=== PATIENT | female | born 1965 ===

== ENCOUNTER 2017-02-14 05:00 | Inpatient (IN) ==
[2017-02-14] MEDS ORDERED: HYDROmorphone 2 MG/1 ML VIAL IV PRN (11:20)
[2017-02-14] MEDS ORDERED: BISACODYL 5 MG TABLET PO PRN (11:20)
[2017-02-14] MEDS ORDERED: oxyCODONE/ACETAMINOPHEN 5-325 MG TABLET PO PRN (11:20)
[2017-02-14] MEDS ORDERED: VANCOMYCIN INJ 1,000 MG in SODIUM CHLORIDE 0.9% 250 ML IV ONE (11:26)
--- NOTE | 2017-02-14 11:31 | General Surg History&Physical ---
Assessment and Plan (1) Diabetic infection of left foot Status: Acute Assessment and plan: Plan is for left below-knee amputation tomorrow. Will have her evaluated and followed by the hospitalist service to control all major other conditions she does need to dialyze today and I am contacting Dr. Whitlock for that. Current Visit: Yes History of Present Illness Chief complaint: diabetic infection and gangrene left foot History of present illness: Ms. Fonseca is a 51 year old female Ms. Fonseca is a 51-year-old woman so late in 2015 with diabetic infection of her left foot she also at that time had a chronic renal insufficiency. She was subsequently hospitalized here in November with acute congestive heart failure complicated by renal failure this required placement of dialysis catheters and cardiac catheterization and dialysis her current digestive heart failure improved and she is stabilized on dialysis. However she had progressive gangrene of her left lower leg she has undergone catheterization with angioplasty and stenting of the iliacs and popliteal and tibial vessels on the left but continued to have progressive gangrene involving the plantar surface of the foot and heel this required further debridement she was treated at [facility] for approximately 3-4 weeks with control of infection but no real improvement toward limb salvage. She had refused B-K amputation on several occasions and it was recommended and offered previously. I spoke with [facility] yesterday who called stating that there was progression of infection into the calf at this time and had concerns about whether further treatment was indicated. Mrs. Fonseca has now elected to go ahead with below-knee amputation and is admitted for that today. She will require dialysis today and I will schedule a left below-knee amputation for tomorrow. I have explained this procedure to her and her in some detail they understand that she has had a previous right below-knee amputation. I know that nonhealing and infection is a possibility but I think our options for best to attempt below-knee amputation now in hopes that she may one day be able to ambulate with bilateral below-knee prostheses. Home Medications Medication Instructions Recorded Confirmed Type Atorvastatin [Lipitor] 40 mg PO BEDTIME 12/20/16 12/20/16 History Sodium Bicarb Tab 1,300 mg PO TID 12/20/16 12/20/16 History Cilostazol [Pletal] 50 mg PO BID tablet 01/06/17 Rx Enoxaparin [Lovenox] 30 mg SUBCUT Q24H syringe 01/06/17 Rx Famotidine Tab [Pepcid Tab] 20 mg PO BID tablet 01/06/17 Rx Isosorbide Mononitrate [Imdur] 15 mg PO DAILY tablet 01/06/17 Rx amLODIPine [Norvasc] 2.5 mg PO BID tablet 01/06/17 Rx hydrALAZINE TAB [Apresoline Tab] 25 mg PO TID tablet 01/06/17 Rx Aspirin EC Tab 81 mg PO DAILY tablet 01/11/17 Rx Allergies Allergy/AdvReac Type Severity Reaction Status Date / Time No Known Allergies Allergy Unverified 11/11/16 13:00 Medical,Surgical,& Family Hx - Medical History Cardio: History of: CHF, Hypertension Psychological: No history of: Anxiety Disorders, ADHD, Behavior Problems, Bipolar Disorder, Depression, Previous Suicide Attempt, Psychiatric/Substance Abuse Tx, Schizophrenia, Violent Behavior, Psychiatric Problems Neurology: History of: Cerebral Hemorrhage (SDH (Jun 2015)), Cerebrovascular Accident (June 2015), Peripheral Neuropathy (SDH (06/16/15)), TIA No history of: Brain Aneurysm, Cerebral Palsy, Dementia, Migraine, Multiple Sclerosis, Parkinson's Disease, Seizures, Vertigo, Neurologocal Cancer HEENT: History of: Eye Problem (glaucoma), Glaucoma Endocrine: History of: Diabetes Mellitus (IDDM), Dyslipidemia Rheumatology: No history of;: Fibromyalgia, Gout, Rheumatological Problems Respiratory: No history of: Asthma, Bronchitis, COPD, Intubation, Obstructive Sleep Apnea , Pulmonary Embolism, Pulmonary Hypertension, Pneumonia, Lung Cancer, Respiratory Problems Renal: History of: Renal Failure, Renal Problems No history of: Renal (Kidney) Cancer, Dialysis Genitourinary: History of: Recurring Urinary Tract Infections Gastrointestinal: History of: GERD Musculoskeletal: History of: Amputation (right BKA) No history of: Back/Neck Problems, Degenerative Disk Disease, Herniated Disk , Osteoporosis, Musculoskeletal Cancer, Musculoskeletal Problems Hematology: History of: Anemia No history of: Blood Transfusion Reaction - Surgical History Cardiac Surgeries: Patient Denies: Cardiac Catheterization Thoracic Surgeries: Patient denies;: Organ Transplant, Lobectomy Neurologic Surgeries: Surgical HX of: Cerebral Hemorrhage (SDH (Jun 2015)), Neurologic Surgery Patient denies: Brain Aneurysm HEENT Surgeries: Surgical HX of: Tonsilectomy & Adenoidectomy Abdominal Surgeries: Surgical HX of: Appendectomy (in the remote past), Cholecystectomy Patient denies: Colonoscopy, EGD Reproductive Surgeries: Patient denies;: Breast Surgery, Genitourinary Surgery, Gynecologic Surgery - Family History Family History: Reports;: Family Cancer (mother), Family Diabetes (Parents and siblings.), Family Hypertension (PARENTS) - Social History Smoking Status: Former smoker Exam - Constitutional General appearance: normal weight, no acute distress - Head Head exam: Present: normal inspection - Eye Eye exam: Present: EOMI Pupils: Present: KRISTOPHER - ENT Mouth exam: Present: other (Scarring about the upper lip.) - Neck Neck exam: Present: normal inspection, trachea midline - Respiratory Respiratory exam: Present: clear to auscultation bilaterally - Cardiovascular Cardiovascular exam: Present: RRR, other (Dialysis catheter on the right chest appears to be going in through a right internal jugular vein) - GI/Abdominal GI/Abdominal exam: Present: soft - Expanded Left Lower Lower leg exam: Present: erythema Foot/Toe exam: Present: amputation, deformity Neuro vascular tendon exam: Present: pulse deficit Gait: Present: not tested/not observed - Neurological Exam Neurological exam: Present: alert, oriented X3 Speech: Present: normal - Skin Skin exam: Present: dry Quality Measures - VTE Contraindication to Pharmacological VTE Prophylaxis: High Risk of Bleeding
[2017-02-14 12:09] LABS: Basophils % 0.1 % (0.0-0.8); Eosinophils # 0.6 10*3/uL (0.0-0.87); Eosinophils % 6.1 % (0.00-10.9); Hematocrit 26.3 VOL% (35.7-47.0); Hemoglobin 7.7 GM/DL (12.0-16.0); Immature Granulocytes % 0.4 %; Immature Granulocytes Absolute 0.04 #; Lymphocytes # 1.6 10*3/uL (1.4-4.0); Lymphocytes % 17.5 % (21.3-54.2); Mean Corpuscular HGB Conc 29.3 GM/DL (32-36); Mean Corpuscular Hemoglobin 27 PG (27-34); Mean Platelet Volume 8.7 FL (9.6-12.0); Monocytes # 0.7 10*3/uL (0.11-0.8); Monocytes % 7.8 % (1.7-12.7); Neutrophils # 6.2 10*3/uL (1.4-7.4); Neutrophils % 68.1 % (38.7-73.9); Platelet Count 241 T/CUMM (130-400); Red Blood Count 2.89 MC/CUMM (3.8-5.5); Red Cell Distribution Width 15.9 % (9.3-17.3); White Blood Count 9.1 T/CUMM (4-12)
[2017-02-14 12:42] LABS: Alanine Aminotransferase 51 U/L (13-56); Albumin 2.2 G/DL (3.4-5.0); Alkaline Phosphatase 415 U/L (45-117); Aspartate Amino Transferase 36 U/L (0-37); Bilirubin,Total < 0.39 MG/DL (0.2-1.0); Blood Urea Nitrogen 37 MG/DL (7-18); Calcium 7.9 MG/DL (8.5-10.1); Glucose 170 MG/DL (74-106); Osmolality,Calculated 300.7 MOS/KG (273-304); Potassium 3.9 MMOL/L (3.5-5.1); Sodium 145 MMOL/L (136-145); Total Protein 6.5 G/DL (6.4-8.3)
[2017-02-14] MEDS ORDERED: DEXTROSE 50% 25 GM/50 ML VIAL IV PRN ×2 (12:42→18:17)
[2017-02-14] MEDS ORDERED: GLUCAGON 1 MG VIAL IM PRN ×2 (12:42→18:17)
--- NOTE | 2017-02-14 13:48 | Hospitalist Consult Note ---
<Eddie Saldivar - Last Filed: 02/14/17 13:44> Assessment and Plan - Time spent with patient Time spent with patient: Greater than 30 minutes (1) ESRD on hemodialysis Status: Chronic Assessment and plan: Patient is followed by Dr. Walt Whitlock. She dialyzes on Monday and Saturdays. She does have a hemodialysis catheter in her right subclavian. She is scheduled to be dialyzed today. Current Visit: Yes (2) Diabetic infection of left foot Status: Acute Assessment and plan: Patient is here for left below the knee amputation scheduled for tomorrow. Current Visit: Yes (3) Cardiomyopathy Status: Chronic Assessment and plan: Patient is being followed by cardiology. She was seen last in December by Dr. Orellana. Left heart cath revealed diffuse CAD with an EF of 40-45%. Current Visit: Yes (4) Hypertension Status: Chronic Assessment and plan: Order routine vitals. Home medicines include Norvasc 2.5 mg twice daily and hydralazine 25 mg 3 times daily. We will continue current treatment plan and adjust accordingly. Current Visit: Yes History of Present Illness - Data of Consult Patient: known to practice within the last 3 years Consult date: 02/14/17 Requesting Physician: Nick Alvares - Consult Narrative Reason for consult: Medical Management History of present illness: Ms. Fonseca is a 51 year old [place] female who is admitted to the hospital to undergo a BKA to the left leg tomorrow due to gangrenous left foot per Dr. Alvares. Patient is a poor historian so most of this history comes from previous hospitalization records. She has a rather extensive past medical history including CHF, hypertension, CVA, peripheral neuropathy, glaucoma, diabetes mellitus, chronic kidney disease and is on dialysis. She has been followed by Dr. Orellana cardiology as she had a left heart cath in December 2016 which revealed diffuse coronary artery disease and LV function of approximately 40-45% . Cardiology is following at this time to evaluate cardiac risk factors for surgery. She is a dialysis patient who is followed by Dr. Whitlock and dialyzes on Monday. She will be dialyzed today. We have been asked to follow along for medical management. On exam, the patient is alert and sitting up in bed. She appears to be in no apparent distress. She has no complaints at this time, denying chest pain, abdominal pain, headache, shortness of breath. Labs on admission are as follows: WBC 9.1, hemoglobin 7.7 , hematocrit 26.3, sodium 145, potassium 3.9, chloride 104, BUN 37, creatinine 4.90, glucose 117. We will follow along with other consultants and treat as necessary. CC: Nick Alvares MD - Home Medications and Allergies Home Medications: Home Medications Medication Instructions Recorded Confirmed Type Atorvastatin [Lipitor] 40 mg PO BEDTIME 12/20/16 02/14/17 History Sodium Bicarb Tab 1,300 mg PO TID 12/20/16 02/14/17 History Cilostazol [Pletal] 50 mg PO BID tablet 01/06/17 02/14/17 Rx Enoxaparin [Lovenox] 30 mg SUBCUT Q24H syringe 01/06/17 02/14/17 Rx Famotidine Tab [Pepcid Tab] 20 mg PO BID tablet 01/06/17 02/14/17 Rx Isosorbide Mononitrate [Imdur] 15 mg PO DAILY tablet 01/06/17 02/14/17 Rx amLODIPine [Norvasc] 2.5 mg PO BID tablet 01/06/17 02/14/17 Rx hydrALAZINE TAB [Apresoline Tab] 25 mg PO TID tablet 01/06/17 02/14/17 Rx Aspirin EC Tab 81 mg PO DAILY tablet 01/11/17 02/14/17 Rx Allergies/Adverse Reactions: Allergies Allergy/AdvReac Type Severity Reaction Status Date / Time No Known Allergies Allergy Unverified 11/11/16 13:00 Medical,Surgical,& Family Hx - Medical History Cardio: History of: CHF, Hypertension Psychological: No history of: Anxiety Disorders, ADHD, Behavior Problems, Bipolar Disorder, Depression, Previous Suicide Attempt, Psychiatric/Substance Abuse Tx, Schizophrenia, Violent Behavior, Psychiatric Problems Neurology: History of: Cerebral Hemorrhage (SDH (Jun 2015)), Cerebrovascular Accident (June 2015), Peripheral Neuropathy (SDH (06/16/15)), TIA No history of: Brain Aneurysm, Cerebral Palsy, Dementia, Migraine, Multiple Sclerosis, Parkinson's Disease, Seizures, Vertigo, Neurologocal Cancer HEENT: History of: Eye Problem (glaucoma), Glaucoma Endocrine: History of: Diabetes Mellitus (IDDM), Dyslipidemia Rheumatology: No history of;: Fibromyalgia, Gout, Rheumatological Problems Respiratory: No history of: Asthma, Bronchitis, COPD, Intubation, Obstructive Sleep Apnea , Pulmonary Embolism, Pulmonary Hypertension, Pneumonia, Lung Cancer, Respiratory Problems Renal: History of: Renal Failure, Renal Problems No history of: Renal (Kidney) Cancer, Dialysis Genitourinary: History of: Recurring Urinary Tract Infections Gastrointestinal: History of: GERD Musculoskeletal: History of: Amputation (right BKA) No history of: Back/Neck Problems, Degenerative Disk Disease, Herniated Disk , Osteoporosis, Musculoskeletal Cancer, Musculoskeletal Problems Hematology: History of: Anemia No history of: Blood Transfusion Reaction - Surgical History Cardiac Surgeries: Patient Denies: Cardiac Catheterization Thoracic Surgeries: Patient denies;: Organ Transplant, Lobectomy Neurologic Surgeries: Surgical HX of: Cerebral Hemorrhage (SDH (Jun 2015)), Neurologic Surgery Patient denies: Brain Aneurysm HEENT Surgeries: Surgical HX of: Tonsilectomy & Adenoidectomy Abdominal Surgeries: Surgical HX of: Appendectomy (in the remote past), Cholecystectomy Patient denies: Colonoscopy, EGD Reproductive Surgeries: Patient denies;: Breast Surgery, Genitourinary Surgery, Gynecologic Surgery - Family History Family History: Reports;: Family Cancer (mother), Family Diabetes (Parents and siblings.), Family Hypertension (PARENTS) - Social History Smoking Status: Former smoker Frequency of Alcohol Use: None Type of Drug Use: None Marital Status: Single Functional capacity: wheelchair bound - Constitutional Constitutional: Absent: fatigue, frequent falls, lethargy, weakness - EENT Eyes: Absent: blurry vision, loss of vision Ears: Absent: decreased hearing, ear pain Nose, mouth and throat: Absent: headache(s), neck pain, throat swelling - Cardiovascular Cardiovascular: Absent: chest pain at rest, dyspnea, lightheadedness - Respiratory Respiratory: Absent: cough, dyspnea, wheezing - Gastrointestinal Gastrointestinal: Absent: abdominal pain, change in bowel habits - Genitourinary Genitourinary: Absent: abnormal vaginal bleeding - Musculoskeletal Musculoskeletal: Absent: arthralgias, back pain - Neurological Neurological: Absent: abnormal speech, confusion, syncope - Psychiatric Psychiatric: Absent: anxiety, confusion - Endocrine Endocrine: Absent: cold intolerance, heat intolerance - Hematologic/Lymphatic Hematologic/Lymphatic: Absent: easy bleeding, easy bruising Exam - Constitutional Exam: General appearance: normal weight, no acute distress - Head Head exam: Present: normocephalic, atraumatic - Eye Eye exam: Present: EOMI. Absent: conjunctival injection, nystagmus Pupils: Present: KRISTOPHER, normal accommodation - ENT ENT exam: Present: normal exam, normal external ear exam - Neck Neck exam: Present: normal inspection. Absent: lymphadenopathy, tenderness, thyromegaly - Respiratory Respiratory exam: Present: clear to auscultation bilaterally. Absent: rales, rhonchi, wheezes - Cardiovascular Cardiovascular exam: Present: regular rate and rhythm. Absent: carotid bruit, gallop, rubs - GI/Abdominal GI/Abdominal exam: Present: normal bowel sounds. Absent: ascites, distended, mass - Extremities Exam Extremities exam: Present: R BKA, L gangrenous foot - Back Exam Back exam: Absent: CVA tenderness (L), CVA tenderness (R) - Neurological Exam Neurological exam: Present: alert, oriented X3 - Psychiatric Psychiatric exam: Present: normal affect, normal mood - Skin Skin exam: Present: normal color, warm, dry Results - Labs CBC & BMP: 02/14/17 11:59 02/14/17 11:59 Lab Results: I have reviewed the past 24 hour labs Quality Measures - VTE Contraindication to Pharmacological VTE Prophylaxis: High Risk of Bleeding <Med Jones - Last Filed: 02/14/17 18:21> History of Present Illness - Consult Narrative History of present illness: Patient seen and examined along with EBENEZER Saldivar, agree with history, assessment and plan as documented. SSI for now, will add basal as needed. CC: Nick Alvares MD Exam - Constitutional Vitals: Period Temp Pulse Resp BP Sys/Palma Pulse Ox Last 24 Hr 98.0 F 96 18 151/77 94 Results - Labs CBC & BMP: 02/14/17 11:59 02/14/17 11:59
--- NOTE | 2017-02-14 14:01 | Cardiology Consult Note ---
Betzaida Simmons April, RN, am scribing for, and in the presence of, Popeye Anguiano MD 13:56. Assessment and Plan - Time spent with patient Time spent with patient: Greater than 30 minutes (due to assessment, planning, documentation, and medication review) (1) Cardiomyopathy Status: Chronic Assessment and plan: 02/14: This patient is currently compensated without heart failure symptoms currently. She has an ischemic cardiomyopathy and will be watched closely for evidence of perioperative ischemic symptoms or worsening heart failure. Current Visit: Yes (2) Diabetic infection of left foot Status: Acute Current Visit: Yes (3) ESRD on hemodialysis Status: Chronic Current Visit: Yes (4) Hypertension Status: Chronic Current Visit: Yes (5) Diabetes mellitus Status: Chronic Current Visit: Yes Qualifiers: Diabetes mellitus type: type 2 Diabetes mellitus complication status: with kidney complications Chronic kidney disease stage: on chronic dialysis (6) CAD (coronary artery disease) Status: Acute Assessment and plan: She has extensive CAD which is not amenable to percutaneous or surgical revascularization. We will cover her with perioperative nitrates and check postoperative EKGs. Current Visit: Yes History of Present Illness - Data of Consult Patient: known to practice within the last 3 years Consult date: 02/14/17 Requesting Physician: Nick Alvares - Consult Narrative Reason for consult: Surgery clearance History of present illness: Ms. Fonseca is a 51 year old female who has been followed by Dr. Orellana in the hospital setting, but she has not followed up outpatient. She is a poor historian and no family is at bedside so the majority of the information is obtained from old records. She has a history of cardiomyopathy, CHF, hypertension, CVA, peripheral neuropathy, glaucoma, NIDDM, dyslipidemia, renal failure on dialysis, GERD, and anemia. ECHO done 12/21/16 with ejection fraction of 30%, Grade II/IV diastolic dysfunction. She had arthrectomy and angioplasty of proximal posterior tibial artery occlusion by Dr. Orellana in December of this year. Heart cath done January 03, 2017 with the following impression and recommendation: Impression: 1. Mildly reduced LV systolic function with ejection fraction estimate of proximal to be 40-45% with global hypokinesis 2. Right dominant system 3. Severe coronary artery disease, with diffusely small coronary arteries, as detailed above including but not limited to: A. 60% eccentric ostial LAD stenosis with diffuse 80-90% disease in the mid to distal LAD, and in the 1 reasonably sized bifurcating diagonal branch B. Long proximal subtotal occlusions of the 2 thin obtuse marginal branches C. 30-50% proximal to mid RCA disease with subtotal ostial occlusions of all 4 thin posterolaterals branches 4. Bilateral SFA occlusions as detailed above 5. The left SFA reconstitutes at a thin popliteal branch with three-vessel occlusions, and the anterior tibial branch reconstituting mid calf, providing relatively slow runoff below the ankle Recommendation and discussion: Mrs. Fonseca'michael coronary artery disease is quite diffuse and her vessels are very small; I believe she was best treated medically. It is encouraging that her LV function appears to improve some, as it reportedly was 30% previously. Percutaneous intervention of her left lower extremity to be difficult but it may be possible to do atherectomy and angioplasty of her left mid SFA occlusion , and proximal anterior tibial occlusion. If this were successful at may provide in-line flow to her ankle and promote wound healing if needed. Her mid anterior tibial, would be a difficult target for open bypass. Other surgical history includes right BKA, amputation of some toes on her left foot, tonsillectomy, appendectomy, and cholecystectomy. Family history includes mother with cancer, parents and siblings with diabetes, and parents with hypertension. She reports she currently does not smoke, saying she quit many years ago. Patient is being admitted today in anticipation of a left below the knee amputation tomorrow by Dr. Alvares. We are being asked to see the patient to evaluate cardiac risk factors for surgery. Patient is seen sitting up in bed in no acute distress. She denies having any chest pain, shortness of breath, palpitations, dizziness, or syncope or feelings of near syncope. Her H&H today is 7.7 and 26.3. BUN and creatinine is 37 and 4.9, she dialyzes on a Monday schedule and states she has not dialyzed today. I did not assess her left lower extremity as it is bandaged. This patient has severe multivessel coronary disease which is not amenable to percutaneous or surgical revascularization according to her primary owner Dr. Hackett. She also had extensive left lower extremity attempts at revascularization 6 weeks ago which were unsuccessful now requiring below the knee amputation. She is increased risk for cardiovascular complications related to surgery. However, this is not an elective procedure as the patient will do poorly without amputation. We will follow serial EKGs and use trans-dermal nitrates perioperatively. I have discussed in detail the particulars of this case and I have examined the patient and reviewed the patient's chart both current and old. I was directly involved in the patient's evaluation and management and I completely agree with Maria Del Carmen Huston RN regarding this patient's evaluation and treatment plan. CC: Nick Alvares MD - Home Medications and Allergies Home Medications: Home Medications Medication Instructions Recorded Confirmed Type Atorvastatin [Lipitor] 40 mg PO BEDTIME 12/20/16 02/14/17 History Sodium Bicarb Tab 1,300 mg PO TID 12/20/16 02/14/17 History Cilostazol [Pletal] 50 mg PO BID tablet 01/06/17 02/14/17 Rx Enoxaparin [Lovenox] 30 mg SUBCUT Q24H syringe 01/06/17 02/14/17 Rx Famotidine Tab [Pepcid Tab] 20 mg PO BID tablet 01/06/17 02/14/17 Rx Isosorbide Mononitrate [Imdur] 15 mg PO DAILY tablet 01/06/17 02/14/17 Rx amLODIPine [Norvasc] 2.5 mg PO BID tablet 01/06/17 02/14/17 Rx hydrALAZINE TAB [Apresoline Tab] 25 mg PO TID tablet 01/06/17 02/14/17 Rx Aspirin EC Tab 81 mg PO DAILY tablet 01/11/17 02/14/17 Rx Allergies/Adverse Reactions: Allergies Allergy/AdvReac Type Severity Reaction Status Date / Time No Known Allergies Allergy Unverified 11/11/16 13:00 - Constitutional Constitutional: Present: as per HPI - EENT Eyes: Present: blurry vision, requires corrective lense Ears: Absent: decreased hearing, tinnitus Nose, mouth and throat: Absent: epistaxis, headache(s) - Cardiovascular Cardiovascular: Absent: chest pain at rest, chest pain with activity, diaphoresis, dyspnea, dyspnea on exertion, edema, radiating jaw, neck or arm pain, lightheadedness, orthopnea, palpitations - Respiratory Respiratory: Present: cough. Absent: dyspnea, hemoptysis, dyspnea on exertion, wheezing - Gastrointestinal Gastrointestinal: Absent: abdominal pain, constipation, diarrhea, hematemesis, hematochezia, melena, nausea, vomiting - Genitourinary Genitourinary: Absent: dysuria, hematuria - Musculoskeletal Musculoskeletal: Present: limited range of motion, muscle weakness. Absent: back pain - Neurological Neurological: Present: abnormal gait, abnormal speech. Absent: dizziness, frequent falls, syncope - Psychiatric Psychiatric: Absent: anxiety, depression - Endocrine Endocrine: Present: fatigue Medical,Surgical,& Family Hx - Medical History Cardio: History of: CHF, Hypertension Neurology: History of: Cerebral Hemorrhage (SDH (Jun 2015)), Cerebrovascular Accident (June 2015), Peripheral Neuropathy (SDH (06/16/15)), TIA HEENT: History of: Glaucoma Endocrine: History of: Diabetes Mellitus (IDDM), Dyslipidemia Renal: History of: Dialysis, Renal Failure (End-stage renal disease) Genitourinary: History of: Recurring Urinary Tract Infections Gastrointestinal: History of: GERD Musculoskeletal: History of: Amputation (right BKA) Hematology: History of: Anemia - Surgical History Cardiac Surgeries: Sugical HX of: Cardiac Catheterization (December 2016) Neurologic Surgeries: Surgical HX of: Cerebral Hemorrhage (SDH (Jun 2015)), Neurologic Surgery HEENT Surgeries: Surgical HX of: Tonsilectomy & Adenoidectomy Abdominal Surgeries: Surgical HX of: Appendectomy (in the remote past), Cholecystectomy - Family History Family History: Reports;: Family Cancer (mother), Family Diabetes (Parents and siblings.), Family Hypertension (PARENTS) - Social History Smoking Status: Former smoker (In the remote past) Have you smoked in the last 12 months: No Frequency of Alcohol Use: None Type of Drug Use: None Marital Status: Lives With:: Spouse Functional capacity: wheelchair bound Physical Examination General: Present: Appears Well, No Apparent Distress HEENT: Present: PERRL, Mucus Membranes Moist Neck: Present: Supple Neck, Midline Trachea, No JVD/HJR, No Bruit Cardiac: Present: Reg Rate and Rhythm, No Murmur Lungs: Present: Normal Breath Sounds, No Wheeze, Rales, Rhonchi. Absent: Oxygen Neuro: Absent: Essential Tremor Abdomen: Present: Soft, Active Bowel Sounds, Non-Tender. Absent: Distended Skin: Present: Other (Right stump and left foot are bandaged). Absent: Rash Extremities: Present: No Edema, Normal Upper Extr. Pulses, Other (Right BKA). Absent: Normal Gait, Normal Lower Extr. Pulses Result/EKG - Labs CBC & BMP: 02/14/17 11:59 02/14/17 11:59 Lab Results: I have reviewed the past 24 hour labs Labs: Laboratory Results - last 24 hr 02/14/17 02/14/17 11:59 11:59 WBC 9.1 RBC 2.89 L Hgb 7.7 L Hct 26.3 L MCV 91.0 MCH 27 MCHC 29.3 L RDW 15.9 Plt Count 241 MPV 8.7 L Neut % (Auto) 68.1 Lymph % (Auto) 17.5 L [place] % (Auto) 7.8 Eos % (Auto) 6.1 Baso % (Auto) 0.1 Neut # (Auto) 6.2 Lymph # (Auto) 1.6 [place] # (Auto) 0.7 Eos # (Auto) 0.6 Baso # (Auto) 0.0 Immature Gran % 0.4 Nucleated RBC % 0.0 Immature Gran # 0.04 Nucleated RBCs # 0.00 Sodium 145 Potassium 3.9 Chloride 104 Carbon Dioxide 28 Anion Gap 16.9 H BUN 37 H Creatinine 4.90 H GFR Calculation 0 BUN/Creatinine Ratio 7.00 Glucose 170 H Calculated Osmolality 300.7 Calcium 7.9 L Total Bilirubin < 0.39 AST 36 ALT 51 Alkaline Phosphatase 415 H Total Protein 6.5 Albumin 2.2 L Globulin 4.3 H Albumin/Globulin Ratio 0.5 L Quality Measures - VTE Contraindication to Pharmacological VTE Prophylaxis: High Risk of Bleeding Silvio Simmons Wesley, MD, personally performed the services described in this documentation, ascribed by Maria Del Carmen Huston RN in my presence, and it is both accurate and complete 401 .
--- NOTE | 2017-02-14 14:11 | EKG Report ---
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
[2017-02-14] MEDS: hydrALAZINE 25 MG TABLET PO SCH ×2 (15:00→21:58)
[2017-02-14] MEDS: SODIUM BICARBONATE 650 MG TABLET PO SCH ×2 (15:00→21:56)
--- NOTE | 2017-02-14 15:47 | Nephrology Consult Note ---
History of Present Illness Chief complaint: ESRD History of present illness: Ms. Fonseca is a 51 year old female with need for left leg amputation which is scheduled for tomorrow. She has end-stage renal disease and dialyzes Monday. She has a problem with chronic fluid overload and is chronically edematous and is now to the point of requesting that her leg be amputated as has been recommended. On exam she is in no distress she is sitting at 30 head elevation and is not short of breath. Breath sounds are decreased over both bases extremities with a right below-knee amputation and left leg as described. Abdomen soft nontender. Chest x-ray with evidence of volume overload and bilateral pleural effusions chronic. Impression end-stage renal disease #2 chronic fluid overload #3 need for left below-knee amputation. Plan dialysis today to remove fluid as tolerated #2 surgery tomorrow #3 continue dialysis to get control of her fluid overload. She continues to drink fluid in excess of our ability to remove it. Home Medications Medication Instructions Recorded Confirmed Type Atorvastatin [Lipitor] 40 mg PO BEDTIME 12/20/16 02/14/17 History Sodium Bicarb Tab 1,300 mg PO TID 12/20/16 02/14/17 History Cilostazol [Pletal] 50 mg PO BID tablet 01/06/17 02/14/17 Rx Enoxaparin [Lovenox] 30 mg SUBCUT Q24H syringe 01/06/17 02/14/17 Rx Famotidine Tab [Pepcid Tab] 20 mg PO BID tablet 01/06/17 02/14/17 Rx Isosorbide Mononitrate [Imdur] 15 mg PO DAILY tablet 01/06/17 02/14/17 Rx amLODIPine [Norvasc] 2.5 mg PO BID tablet 01/06/17 02/14/17 Rx hydrALAZINE TAB [Apresoline Tab] 25 mg PO TID tablet 01/06/17 02/14/17 Rx Aspirin EC Tab 81 mg PO DAILY tablet 01/11/17 02/14/17 Rx Allergies Allergy/AdvReac Type Severity Reaction Status Date / Time No Known Allergies Allergy Unverified 11/11/16 13:00 Medical,Surgical,& Family Hx - Medical History Cardio: History of: CHF, Hypertension Psychological: No history of: Anxiety Disorders, ADHD, Behavior Problems, Bipolar Disorder, Depression, Previous Suicide Attempt, Psychiatric/Substance Abuse Tx, Schizophrenia, Violent Behavior, Psychiatric Problems Neurology: History of: Cerebral Hemorrhage (SDH (Jun 2015)), Cerebrovascular Accident (June 2015), Peripheral Neuropathy (SDH (06/16/15)), TIA No history of: Brain Aneurysm, Cerebral Palsy, Dementia, Migraine, Multiple Sclerosis, Parkinson's Disease, Seizures, Vertigo, Neurologocal Cancer HEENT: History of: Eye Problem (glaucoma), Glaucoma Endocrine: History of: Diabetes Mellitus (IDDM), Dyslipidemia Rheumatology: No history of;: Fibromyalgia, Gout, Rheumatological Problems Respiratory: No history of: Asthma, Bronchitis, COPD, Intubation, Obstructive Sleep Apnea , Pulmonary Embolism, Pulmonary Hypertension, Pneumonia, Lung Cancer, Respiratory Problems Renal: History of: Renal Failure, Renal Problems No history of: Renal (Kidney) Cancer, Dialysis Genitourinary: History of: Recurring Urinary Tract Infections Gastrointestinal: History of: GERD Musculoskeletal: History of: Amputation (right BKA) No history of: Back/Neck Problems, Degenerative Disk Disease, Herniated Disk , Osteoporosis, Musculoskeletal Cancer, Musculoskeletal Problems Hematology: History of: Anemia No history of: Blood Transfusion Reaction - Surgical History Cardiac Surgeries: Patient Denies: Cardiac Catheterization Thoracic Surgeries: Patient denies;: Organ Transplant, Lobectomy Neurologic Surgeries: Surgical HX of: Cerebral Hemorrhage (SDH (Jun 2015)), Neurologic Surgery Patient denies: Brain Aneurysm HEENT Surgeries: Surgical HX of: Tonsilectomy & Adenoidectomy Abdominal Surgeries: Surgical HX of: Appendectomy (in the remote past), Cholecystectomy Patient denies: Colonoscopy, EGD Reproductive Surgeries: Patient denies;: Breast Surgery, Genitourinary Surgery, Gynecologic Surgery - Family History Family History: Reports;: Family Cancer (mother), Family Diabetes (Parents and siblings.), Family Hypertension (PARENTS) - Social History Smoking Status: Former smoker Frequency of Alcohol Use: None Type of Drug Use: None Review of Systems 12 point system: reviewed and no additional remarkable complaints except as stated Exam - General Appearance General appearance: frail EENT: ATNC Neck: no JVD, no thyromegaly, no carotid bruit, supple Respiratory: no kyphosis, no scoliosis Cardiology: no murmurs, no rub, no gallops, no edema, regular rate, regular rhythm, normal S1, normal S2 Gastrointestinal: normoactive bowel sounds Integumentary: no rash, warm and dry Neurologic: no focal deficit, no asterixis, alert and oriented x3, reflexes 2+ and symmetric, gait normal, strength 5/5 Musculoskeletal: no deformities, no erythema, no cyanosis, no clubbing Psychiatric: mood/affect appropriate, cooperative Results - Labs CBC & BMP: 02/14/17 11:59 02/14/17 11:59 Assessment and Plan (1) ESRD (end stage renal disease) on dialysis Status: Chronic Assessment and plan: 3x weekly dialysis Current Visit: No
--- NOTE | 2017-02-14 15:50 | Dialysis Note ---
Dialysis Note - Dialysis Note Ms. Fonseca is seen during her hemodialysis. She is tolerating it well and is in no distress. We are removing 4 kg today and she will need to continue to have fluid removed with dialysis since she is volume overloaded. Most of this volume is located peripherally
--- NOTE | 2017-02-14 16:39 | XRay Report ---
Single view the chest. Indication: Shortness of breath. Comparison: January 12, 2017. Due to the pulmonary pathology, the heart borders are not well seen. The heart is suspected to be enlarged, and significantly increased from the previous. The pulmonary vasculature is prominent. There are bilateral basilar infiltrates and pleural effusions, these findings have worsened compared to the previous study. A dual-lumen catheter is in satisfactory position. Osseous structures are stable. Impression: Significant interval worsening with interval increase in heart size, worsening venous congestion, basilar infiltrates and increasing pleural effusions. PROCEDURE INTERPRETED AT [facility] DEPARTMENT OF RADIOLOGY Final Report Signed by: Dr. Alessandra Barrera
[2017-02-14] MEDS: amLODIPine 2.5 MG TABLET PO SCH (21:56)
[2017-02-14] MEDS: ATORVASTATIN 40 MG TABLET PO SCH (21:56)
[2017-02-15] MEDS: NITROGLYCERIN 2% OINT 1 INCH/GM PACK TOP SCH ×6 (01:12→23:58)
[2017-02-15] MEDS ORDERED: VANCOMYCIN INJ 1,000 MG in SODIUM CHLORIDE 0.9% 250 ML IV ONE (02:00)
[2017-02-15 06:32] LABS: Calcium 7.9 MG/DL (8.5-10.1); Magnesium 2.3 MG/DL (1.8-2.4); Osmolality,Calculated 298.3 MOS/KG (273-304); Potassium 4.1 MMOL/L (3.5-5.1)
--- NOTE | 2017-02-15 07:01 | EKG Report ---
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
--- NOTE | 2017-02-15 08:43 | Nephrology Progress Note ---
Nephrology - PN: Subj Interval history: Ms. Fonseca is seen in follow-up for end-stage renal disease fluid overload and peripheral vascular disease. She is to undergo left below-knee amputation today. Her chest is clear and she is not dyspneic. She still has some peripheral edema and I think she will keep that as long she continues to drink excessively but we will plan to dialyze her tomorrow and she is fine to undergo surgery today. Exam (PN)-Nephrology - Vital Signs Vital signs: Period Temp Pulse Resp BP Sys/[place] Pulse Ox Last 24 Hr 98.0 F-100.2 F 88-97 17-20 99-151/44-77 90-94 - Lab 02/14/17 11:59 02/15/17 05:13 Most recent lab results Calcium 7.9 MG/DL (8.5-10.1) L 02/15/17 05:13 Magnesium 2.3 MG/DL (1.8-2.4) 02/15/17 05:13 Assessment and Plan (1) ESRD (end stage renal disease) on dialysis Status: Chronic Assessment and plan: 3x weekly dialysis Current Visit: No
[2017-02-15] MEDS ORDERED: ISOSORBIDE MONONITRATE 30 MG TABLET PO SCH (09:00)
[2017-02-15] MEDS ORDERED: PANTOPRAZOLE 40 MG TABLET PO SCH (09:00)
[2017-02-15] MEDS ORDERED: VANCOMYCIN 500 MG VIAL ONE (10:03)
[2017-02-15] MEDS: SODIUM CHLORIDE 0.9% 250 ML IV SCH (10:27)
[2017-02-15] MEDS ORDERED: ATROPINE 0.4 MG/1 ML VIAL ONE (11:12)
[2017-02-15] MEDS: INSULIN LISPRO 100 UNIT/ML SUBCUT SCH ×2 (11:15→17:11)
[2017-02-15] MEDS: amLODIPine 2.5 MG TABLET PO SCH ×3 (11:16→20:49)
[2017-02-15] MEDS: ASPIRIN EC 81 MG TABLET PO SCH (11:16)
[2017-02-15] MEDS: hydrALAZINE 25 MG TABLET PO SCH ×3 (11:16→20:49)
[2017-02-15] MEDS: FAMOTIDINE 20 MG TABLET PO SCH (11:17)
[2017-02-15] MEDS: SODIUM BICARBONATE 650 MG TABLET PO SCH ×3 (11:17→20:49)
--- NOTE | 2017-02-15 11:54 | Event Note ---
Patient suffered a bradycardic arrest just at the institution of anesthesia she did not require intubation had a brief period of cardiac external massage. She has now awakened and pressures and heart rate have returned but I am canceling her surgery for today transferring to the intensive care unit. Notably she was complaining of fairly severe back pain just as she came into the operating suite and wanted to sit up associated with that. Do not know of any previous significant back pain history I will check a chest x-ray EKG and troponins I will ask cardiology and nephrology to recheck her in the ICU.
--- NOTE | 2017-02-15 12:25 | EKG Report ---
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
[2017-02-15] MEDS ORDERED: MIDAZOLAM 2 MG/2 ML VIAL ONE (12:43)
[2017-02-15] MEDS ORDERED: fentaNYL 100 MCG/2 ML VIAL ONE (12:43)
[2017-02-15] MEDS ORDERED: ePHEDrine 50 MG/ML AMP ONE (12:44)
--- NOTE | 2017-02-15 13:10 | Cardiology Progress Note ---
Betzaida Simmons April, RN, am scribing for, and in the presence of, Popeye Anguiano MD 13:09. Assessment and Plan (1) Cardiomyopathy Status: Chronic Current Visit: Yes (2) Diabetic infection of left foot Status: Acute Current Visit: Yes (3) ESRD on hemodialysis Status: Chronic Current Visit: Yes (4) Hypertension Status: Chronic Current Visit: Yes (5) Diabetes mellitus Status: Chronic Current Visit: Yes Qualifiers: Diabetes mellitus type: type 2 Diabetes mellitus complication status: with kidney complications Chronic kidney disease stage: on chronic dialysis (6) CAD (coronary artery disease) Status: Chronic Current Visit: Yes Cardiology - PN: Subj Interval history: Ms. Fonseca is seen resting in bed with family at bedside. She is in no acute distress at this time. She is scheduled for left below the knee amputation tomorrow by Dr. Alvares. She denies chest pain, shortness of breath, palpitations , or dizziness. Patient ran a temp of 100.2 during the night but otherwise vital signs were stable throughout the night. EKG done this morning showed sinus rhythm with T-wave abnormality, heart rate 90. She has now been transferred to the CCU because of an episode of extreme bradycardia with and induction of anesthesia.. She is clinically stable currently with a normal heart rate and blood pressure. We will review her medications. She has severe diffuse coronary disease and is high risk for surgery. We will review troponin Exam (Progress Note) - Constitutional Vitals: Period Temp Pulse Resp BP Sys/Palma Pulse Ox Last 24 Hr 98.0 F-100.2 F 88-97 17-20 99-151/44-77 90-94 General appearance: no acute distress - Head Head exam: Absent: abrasion, hematoma - Eye Eye exam: Absent: periorbital swelling, laceration to eyelids - Neck Neck exam: Absent: tenderness - Respiratory Respiratory exam: Present: clear to auscultation bilaterally. Absent: accessory muscle use, chest wall tenderness - Cardiovascular Cardiovascular exam: Present: regular rate and rhythm - GI/Abdominal GI/Abdominal exam: Present: normal bowel sounds, soft. Absent: distended, tenderness - Extremities Exam Extremities exam: Present: other (Dressings to right stump and left lower extremity). Absent: edema - Neurological Exam Neurological exam: Present: alert, oriented X3 - Psychiatric Psychiatric exam: Present: flat affect - Skin Skin exam: Present: warm, dry Result/EKG - Labs CBC & BMP: 02/14/17 11:59 02/15/17 05:13 Lab Results: I have reviewed the past 24 hour labs Labs: Laboratory Results - last 24 hr 02/14/17 02/14/17 02/14/17 11:59 11:59 11:59 WBC 9.1 RBC 2.89 L Hgb 7.7 L Hct 26.3 L MCV 91.0 MCH 27 MCHC 29.3 L RDW 15.9 Plt Count 241 MPV 8.7 L Neut % (Auto) 68.1 Lymph % (Auto) 17.5 L [place] % (Auto) 7.8 Eos % (Auto) 6.1 Baso % (Auto) 0.1 Neut # (Auto) 6.2 Lymph # (Auto) 1.6 [place] # (Auto) 0.7 Eos # (Auto) 0.6 Baso # (Auto) 0.0 Immature Gran % 0.4 Nucleated RBC % 0.0 Immature Gran # 0.04 Nucleated RBCs # 0.00 Sodium 145 Potassium 3.9 Chloride 104 Carbon Dioxide 28 Anion Gap 16.9 H BUN 37 H Creatinine 4.90 H GFR Calculation 0 BUN/Creatinine Ratio 7.00 Glucose 170 H POC Glucose Calculated Osmolality 300.7 Calcium 7.9 L Magnesium Total Bilirubin < 0.39 AST 36 ALT 51 Alkaline Phosphatase 415 H Total Protein 6.5 Albumin 2.2 L Globulin 4.3 H Albumin/Globulin Ratio 0.5 L Blood Type O POSITIVE Antibody Screen Cancelled Crossmatch See Detail Blood Bank Comment Cancelled 02/14/17 02/15/17 02/15/17 16:38 05:13 07:22 WBC RBC Hgb Hct MCV MCH MCHC RDW Plt Count MPV Neut % (Auto) Lymph % (Auto) [place] % (Auto) Eos % (Auto) Baso % (Auto) Neut # (Auto) Lymph # (Auto) [place] # (Auto) Eos # (Auto) Baso # (Auto) Immature Gran % Nucleated RBC % Immature Gran # Nucleated RBCs # Sodium 148 H Potassium 4.1 Chloride 109 H Carbon Dioxide 29 Anion Gap 14.1 BUN 21 H D Creatinine 3.40 H GFR Calculation 14 BUN/Creatinine Ratio 6.00 Glucose 141 H POC Glucose 162 H Calculated Osmolality 298.3 Calcium 7.9 L Magnesium 2.3 Total Bilirubin AST ALT Alkaline Phosphatase Total Protein Albumin Globulin Albumin/Globulin Ratio Blood Type O POSITIVE Antibody Screen Negative Crossmatch Blood Bank Comment - EKG EKG results: interpreted by me EKG shows: sinus rhythm Quality Measures - VTE Contraindication to Pharmacological VTE Prophylaxis: High Risk of Bleeding Silvio Simmons Wesley, MD, personally performed the services described in this documentation, ascribed by Maria Del Carmen Huston RN in my presence, and it is both accurate and complete 310 .
--- NOTE | 2017-02-15 13:11 | Dialysis Note ---
Dialysis Note - Dialysis Note Ms. Fonseca had an aborted attempted surgery today. She had a bradycardic episode with the induction of anesthesia. She is tolerating dialysis well now were trying to remove fluid and will do this by ultrafiltration alone. Heart rate is now 90 with a blood pressure 150/100. She has edema and has pleural effusion so there is plenty of volume to be removed. She is not short of breath and says she was not short of breath even when supine this morning.
--- NOTE | 2017-02-15 13:56 | Event Note ---
Ms. Fonseca is moved to CCU is awake and doing well with dialysis and spoken with Dr. Anguiano who feels that there is more significant stenosis of the LAD than was apparent previously and feels that cardiac catheterization and possible stenting is appropriate. Explained that even if she requires Plavix I believe that I can safely do the B-K amputation with her on Plavix but we may have to delay that until next week.
[2017-02-15] MEDS ORDERED: POTASSIUM CHLORIDE RIDER 10 MEQ in PREMIX 1 EACH IV PRN (15:27)
[2017-02-15] MEDS ORDERED: DIAZEPAM 5 MG TABLET PO ONE (15:27)
[2017-02-15] MEDS ORDERED: MAGNESIUM SULF RIDER 2 GM in PREMIX 1 EACH IV PRN (15:27)
[2017-02-15] MEDS ORDERED: CLOPIDOGREL 300 MG TABLET PO ONE (15:29)
[2017-02-15] MEDS ORDERED: cloNIDine 0.1 MG TABLET PO PRN (15:49)
[2017-02-15] MEDS: oxyCODONE/ACETAMINOPHEN 5-325 MG TABLET PO PRN (16:16)
--- NOTE | 2017-02-15 17:42 | XRay Report ---
Portable chest. Indication: Respiratory failure. Comparison: Arch 2016. The cardiac borders are not well-defined. The heart is probably enlarged. The pulmonary vasculature is prominent. There are bilateral basilar infiltrates and moderately large bilateral pleural effusions. A dual-lumen catheter remains in satisfactory position. No pneumothorax. No bony abnormality is seen. Impression: Stable appearance of the chest. PROCEDURE INTERPRETED AT [facility] DEPARTMENT OF RADIOLOGY Final Report Signed by: Dr. Alessandra Barrera
--- NOTE | 2017-02-15 18:05 | Hospitalist Progress Note ---
Hospitalist: Subjective Interval history: Left BKA aborted today due to hypotension and bradycardia. Cardiology now plans for a cath tomorrow. Patient is now in the unit. HD today. FSGs are acceptable currently. Exam - Constitutional Vitals: Period Temp Pulse Resp BP Sys/Palma Pulse Ox Last 24 Hr 97.9 F-100.2 F 83-105 13-27 99-182/44-108 90-99 General appearance: over weight - Head Head exam: Present: normocephalic, atraumatic - Eye Eye exam: Present: EOMI Pupils: Present: KRISTOPHER - ENT ENT exam: Present: normal exam - Neck Neck exam: Present: normal inspection - Respiratory Respiratory exam: Present: clear to auscultation bilaterally. Absent: wheezes - Cardiovascular Cardiovascular exam: Present: regular rate and rhythm - GI/Abdominal GI/Abdominal exam: Present: normal bowel sounds, soft. Absent: tenderness - Extremities Exam Extremities exam: Present: edema - Back Exam Back exam: Present: normal inspection - Neurological Exam Neurological exam: Present: alert - Skin Skin exam: Present: warm, intact Results - Labs CBC & BMP: 02/14/17 11:59 02/15/17 05:13 Quality Measures - VTE Contraindication to Pharmacological VTE Prophylaxis: High Risk of Bleeding
[2017-02-15] MEDS: METOPROLOL TARTRATE 25 MG TABLET PO SCH (20:49)
[2017-02-15] MEDS: ATORVASTATIN 40 MG TABLET PO SCH (20:49)
[2017-02-16] MEDS: oxyCODONE/ACETAMINOPHEN 5-325 MG TABLET PO PRN (03:32)
[2017-02-16] MEDS: NITROGLYCERIN 2% OINT 1 INCH/GM PACK TOP SCH ×3 (05:42→18:09)
[2017-02-16 05:45] LABS: Calcium 8.3 MG/DL (8.5-10.1); Magnesium 2.3 MG/DL (1.8-2.4); Osmolality,Calculated 289.1 MOS/KG (273-304); Potassium 4.4 MMOL/L (3.5-5.1)
[2017-02-16] MEDS ORDERED: CLOPIDOGREL 300 MG TABLET PO ONE (06:00)
[2017-02-16] MEDS ORDERED: DIAZEPAM 5 MG TABLET PO ONE (06:00)
[2017-02-16] MEDS ORDERED: diphenhydrAMINE CAP 25 MG CAPSULE PO ONE (06:00)
[2017-02-16] MEDS: SODIUM CHLORIDE 0.9% 250 ML IV SCH ×2 (06:19→14:03)
[2017-02-16] MEDS: INSULIN LISPRO 100 UNIT/ML SUBCUT SCH ×2 (07:45→18:31)
--- NOTE | 2017-02-16 07:53 | EKG Report ---
Stationary ECG Study [facility] Test Date: 02/16/2017 7:52:58 AM Pat Name: JONATHAN QUACH Department: Room: 123 Gender: F Assistant Librarian: CLAY : 1965 Requested by: Popeye Anguiano Order Number: [id number] Reading MD: POPEYE ANGUIANO Intervals [place] Rate: 77 P: 7 [place]: 131 QRS: 51 QRSD: 86 T: 156 QT: 380 QTc: 411 Interpretive Statements SINUS RHYTHM ST DEVIATION AND MODERATE T-WAVE ABNORMALITY, CONSIDER LATERAL ISCHEMIA Electronically Signed On 02-16-17 10:44:14 CDT by POPEYE ANGUIANO [email or web address]
[2017-02-16] MEDS: amLODIPine 2.5 MG TABLET PO SCH ×3 (07:57→20:41)
[2017-02-16] MEDS: ASPIRIN EC 81 MG TABLET PO SCH ×2 (07:57→09:04)
[2017-02-16] MEDS: hydrALAZINE 25 MG TABLET PO SCH ×4 (07:57→20:41)
[2017-02-16] MEDS: METOPROLOL TARTRATE 25 MG TABLET PO SCH ×3 (07:58→20:41)
[2017-02-16] MEDS ORDERED: HEPARIN/NACL 0.9% 2 UNITS/ML 1,000 ML IV ONE (08:24)
[2017-02-16] MEDS ORDERED: LIDOCAINE 1%/EPI INJ 20 ML VIAL ONE (08:24)
--- NOTE | 2017-02-16 08:27 | Nephrology Progress Note ---
Nephrology - PN: Subj Interval history: Ms. Fonseca is seen in follow-up of her end-stage renal disease. She had ultrafiltration yesterday with removal of 4 4 kg of volume. Chest x-ray prior to that procedure showed pleural effusions. She is to have percutaneous coronary intervention today to treat her LAD stenosis. Potassium today is 4.4. Plan is for hemodialysis tomorrow Exam (PN)-Nephrology - Vital Signs Vital signs: Period Temp Pulse Resp BP Sys/Palma Pulse Ox Last 24 Hr 97.6 F-98.9 F 74-105 13-27 111-182/71-108 92-100 - Lab 02/14/17 11:59 02/16/17 04:08 Most recent lab results Calcium 8.3 MG/DL (8.5-10.1) L 02/16/17 04:08 Magnesium 2.3 MG/DL (1.8-2.4) 02/16/17 04:08 Assessment and Plan (1) ESRD (end stage renal disease) on dialysis Status: Chronic Assessment and plan: 3x weekly dialysis Current Visit: No
[2017-02-16] MEDS ORDERED: VANCOMYCIN INJ 1,000 MG in SODIUM CHLORIDE 0.9% 250 ML IV PRN (08:36)
--- NOTE | 2017-02-16 08:36 | Event Note ---
Ms. Fonseca will have coronary stenting today and dialysis later today or tomorrow. My thoughts are to try to stabilize her cardiac and renal and pulmonary status and perhaps we can proceed safely with the left B-K amputation next week. I would like her to continue to get 1 g of vancomycin after each dialysis
[2017-02-16] MEDS ORDERED: fentaNYL 100 MCG/2 ML VIAL ONE (08:44)
[2017-02-16] MEDS ORDERED: MIDAZOLAM 2 MG/2 ML VIAL ONE (08:47)
--- NOTE | 2017-02-16 08:57 | History and Physical Update ---
Sedation H&P Update - History and Physical H&P was reviewed, the patient examined and there: are no changes in the patients condition since last H&P was completed. - Sedation Plan for Sedation: moderate Patient Consent: Procedure disscussed with patient and patinet has consented., Risks and benefits were discussed with patient,including infection,, bleeding, injury to surrounding structures, seizure, temporary nerve, Patient understands and accepts potential risks/benefits and agrees to, proceed. ASA Class: IV Airway Assessment: Class III: Soft palate, base of uvula visible
[2017-02-16] MEDS: FAMOTIDINE 20 MG TABLET PO SCH (09:04)
[2017-02-16] MEDS: CLOPIDOGREL 75 MG TABLET PO SCH (09:05)
[2017-02-16] MEDS: SODIUM BICARBONATE 650 MG TABLET PO SCH ×3 (09:05→20:40)
[2017-02-16] MEDS ORDERED: HEPARIN 5,000 UNIT/1 ML VIAL ONE (09:06)
[2017-02-16] MEDS ORDERED: TIROFIBAN 5,000 MCG/100 ML PREMIX IV ONE (09:30)
--- NOTE | 2017-02-16 09:42 | Cardiac Catheterization ---
Date of Procedure:: 02/16/17 Pre-op Diagnosis: Patient with a bradycardic hypotensive arrest yesterday with induction of anesthesia for left below the knee amputation. On review of films patient had 90% ostial stenosis of the LAD which I would favor attempting at PCI. I reviewed the risks benefits and alternatives the procedure with the patient. She is agreeable to proceeding. Post-op diagnosis: same Procedure: Clinical summary: 51-year-old [place] lady with severe vasculopathy and known ostial 90% stenosis of the LAD who had a bradycardic hypotensive arrest with induction of anesthesia yesterday. She now is for PCI at the ostium of the LAD. Risks benefits and alternatives have been reviewed with the patient. Description of procedure: Procedure performed: 2.25 x 12 mm Zions drug-eluting stent to the ostial LAD across the origin of the circumflex inflated to 2.5 mm post deployment with an NC balloon Right femoral sheath angiography Minx closure right femoral arteriotomy site After obtaining informed consent the patient was brought to the Food Product Inspector of the right groin was prepped and draped in the usual sterile manner. Using intravenous sedation and local anesthesia needle was inserted in the right femoral artery without difficulty and a 6 Chinese sheath was positioned without difficulty. An EBU 3.5 catheter was advanced over guidewire under fluoroscopic control the issue to where the left main ostium was engaged. An 014 Chastity blue wire was advanced to the diagonal branch. A 2.25 x 12 mm Zions drug-eluting stent was advanced to the area of stenosis and deployed at 15 pancho. Repeat inflation was taken to 17 pancho. There was still a minimal amount of residual stenosis at the ostium of the LAD. This balloon was then removed from the wire and a 2.5 x 12 mm NC trek balloon was advanced to the stented segment and inflated to 15 pancho. There was good resolution of the residual stenosis with good apposition of the stent to the vessel wall. There was SOHAN grade III flow down the vessel end procedure.. Balloons and wires were removed and repeat angiogram confirmed good result. Patient underwent right femoral sheath angiography was demonstrated anatomy appropriate for minx closure. This was performed without difficulty. Good hemostasis was obtained. The patient was transferred to the CCU having suffered no significant immediate complications. Conclusions: Successful percutaneous intervention of the ostial LAD with a 2.25 x 12 mm Zions drug-eluting stent taken to 2.5 mm post dilated with a noncompliant balloon Minx closure right femoral arteriotomy site Discussion and recommendations: Patient presents with bradycardic arrest with induction of general anesthesia for a left below the knee amputation yesterday. On review of her cath films it was noted that she had a tight ostial LAD stenosis which I felt was approachable with percutaneous intervention. This is now been completed with a good angiographic result. We will continue her anti-thrombotic antiplatelet medications. She should be able to have her left below the knee amputation as optimally treated as possible from a cardiovascular standpoint. Findings have been reviewed with the patient and with her family. Anesthesia: moderate conscious sedation Surgeon / Physician: Popeye Anguiano Estimated blood loss: minimal Specimens: none sent Condition: stable - Medications / Follow-up
--- NOTE | 2017-02-16 10:01 | EKG Report ---
Stationary ECG Study [facility] Test Date: 02/16/2017 10:00:55 AM Pat Name: JONATHAN QUACH Department: Room: 123 Gender: F Annealer: Anh : 1965 Requested by: Popeye Anguiano Order Number: [id number] Reading MD: POPEYE ANGUIANO Intervals [place] Rate: 82 P: 60 HI: 144 QRS: 77 QRSD: 82 T: 192 QT: 372 QTc: 410 Interpretive Statements SINUS RHYTHM ST DEVIATION AND MODERATE T-WAVE ABNORMALITY, CONSIDER LATERAL ISCHEMIA ST DEVIATION AND MODERATE T-WAVE ABNORMALITY, CONSIDER INFERIOR ISCHEMIA Electronically Signed On 02-16-17 10:46:53 CDT by POPEYE ANGUIANO [email or web address]
--- NOTE | 2017-02-16 11:41 | Hospitalist Progress Note ---
Assessment and Plan (1) Diabetes mellitus Status: Chronic Current Visit: Yes Qualifiers: Diabetes mellitus type: type 2 Diabetes mellitus complication status: with kidney complications Chronic kidney disease stage: on chronic dialysis (2) Hypertension Status: Chronic Current Visit: No Qualifiers: Hypertension type: essential hypertension Qualified Code(s): I10 - Essential (primary) hypertension (3) Elevated troponin Status: Resolved Current Visit: No (4) ESRD (end stage renal disease) on dialysis Status: Chronic Current Visit: No (5) PAD (peripheral artery disease) Status: Acute Current Visit: No Hospitalist: Subjective Interval history: No acute events overnight. Patient not requiring pressors. Plan for cath today. FSGs acceptable. Exam - Constitutional Vitals: Period Temp Pulse Resp BP Sys/Palma Pulse Ox Last 24 Hr 97.6 F-98.9 F 74-105 13-27 111-182/71-108 92-100 General appearance: over weight - Head Head exam: Present: normocephalic, atraumatic - Eye Eye exam: Present: EOMI Pupils: Present: KRISTOPHER - ENT ENT exam: Present: normal exam - Neck Neck exam: Present: normal inspection - Respiratory Respiratory exam: Present: clear to auscultation bilaterally - Cardiovascular Cardiovascular exam: Present: regular rate and rhythm - GI/Abdominal GI/Abdominal exam: Present: normal bowel sounds, soft. Absent: tenderness, rebound - Extremities Exam Extremities exam: Present: normal inspection - Neurological Exam Neurological exam: Present: alert, oriented X3 - Psychiatric Psychiatric exam: Present: normal affect, normal mood - Skin Skin exam: Present: warm, intact Results - Labs CBC & BMP: 02/14/17 11:59 02/16/17 04:08 Quality Measures - VTE Contraindication to Pharmacological VTE Prophylaxis: High Risk of Bleeding Specialty Discharge - Follow Up or Referrals
--- NOTE | 2017-02-16 12:53 | Event Note ---
Ms. Fonseca has had successful percutaneous coronary angioplasty and stenting today and is currently on dialysis. Her left leg does not show sepsis but I would like to continue vancomycin after dialysis. I had like to have her managed here several more days before attempting B-K amputation again I am thinking Monday may be a better approach for her this will give time for better coronary perfusion and dialysis perhaps we can better control her fluid intake and her in less heart failure at this time we attempt her amputation.
--- NOTE | 2017-02-16 14:05 | Dialysis Note ---
Dialysis Note - Dialysis Note Patient is seen on hemodialysis, she is tolerating this well will continue her present treatment unchanged.
[2017-02-16] MEDS ORDERED: VANCOMYCIN INJ 1,000 MG in SODIUM CHLORIDE 0.9% 250 ML IV ONE (17:00)
[2017-02-16] MEDS: ATORVASTATIN 40 MG TABLET PO SCH (20:40)
[2017-02-17] MEDS: SODIUM CHLORIDE 0.9% 250 ML IV SCH ×2 (00:26→12:50)
[2017-02-17] MEDS: NITROGLYCERIN 2% OINT 1 INCH/GM PACK TOP SCH ×4 (02:52→18:49)
[2017-02-17 06:04] LABS: Troponin I Only 0.354 NG/ML (0.00-0.045)
--- NOTE | 2017-02-17 09:05 | Nephrology Progress Note ---
Nephrology - PN: Subj Interval history: Ms. Fonseca is seen in follow-up of her end-stage renal disease. She is status post percutaneous LAD stent placement and is doing well. Chest sounds clear today and edema seems less. She did dialyze yesterday. Her fluid overload seems essentially corrected now. Our plan is to do hemodialysis tomorrow thank you Exam (PN)-Nephrology - Vital Signs Vital signs: Period Temp Pulse Resp BP Sys/Palma Pulse Ox Last 24 Hr 97.5 F-98.5 F 73-84 10-25 115-164/65-96 94-100 - Lab 02/14/17 11:59 02/16/17 04:08 Most recent lab results Calcium 8.3 MG/DL (8.5-10.1) L 02/16/17 04:08 Magnesium 2.3 MG/DL (1.8-2.4) 02/16/17 04:08 Assessment and Plan (1) ESRD (end stage renal disease) on dialysis Status: Chronic Assessment and plan: 3x weekly dialysis Current Visit: No Specialty Discharge - Follow Up or Referrals
--- NOTE | 2017-02-17 09:10 | Cardiology Progress Note ---
Assessment and Plan (1) Cardiomyopathy Status: Chronic Assessment and plan: 02/14: This patient is currently compensated without heart failure symptoms currently. She has an ischemic cardiomyopathy and will be watched closely for evidence of perioperative ischemic symptoms or worsening heart failure. Current Visit: Yes (2) Diabetic infection of left foot Status: Acute Current Visit: Yes (3) ESRD on hemodialysis Status: Chronic Current Visit: Yes (4) Hypertension Status: Chronic Current Visit: Yes (5) Diabetes mellitus Status: Chronic Current Visit: Yes Qualifiers: Diabetes mellitus type: type 2 Diabetes mellitus complication status: with kidney complications Chronic kidney disease stage: on chronic dialysis (6) CAD (coronary artery disease) Status: Chronic Assessment and plan: She has extensive CAD which is not amenable to percutaneous or surgical revascularization. We will cover her with perioperative nitrates and check postoperative EKGs. 02/17: She has now undergone stenting across the ostium of the LAD into the left main. She tolerated this well without significant problems and has had no significant myocardial damage. She is overall stable without complaints and her plan will be to continue his currently. Current Visit: Yes Cardiology - PN: Subj Interval history: Patient is stable post procedure. She has a small hematoma the right groin but otherwise she is doing well. We will continue her Plavix and follow. She denies anginal chest pain. She is a difficult historian but I do not get a sense that she is having angina. Exam (Progress Note) - Constitutional Vitals: Period Temp Pulse Resp BP Sys/Palma Pulse Ox Last 24 Hr 97.5 F-98.5 F 73-84 10-25 115-164/65-96 94-100 Exam: General:no acute distress. alert and oriented, mood and affect are normal HEENT: no new lesions, sclerae are clear, mouth and pharynx benign Neck: supple, trachea midline, no JVD noted Lungs: no rales ronchi or wheeze is noted. pt comfortable without accesory muscle use to assist with breathing CV: RRR no murmur rub or gallop is noted. Abd: soft and nontender, BSNA, no masses. Ext: no cyanosis, clubbing or edema. Vascular insufficiency changes bilaterally. Neuro: grossly intact without focal neurologic deficit. Result/EKG - Labs CBC & BMP: 02/14/17 11:59 02/16/17 04:08 Labs: Laboratory Results - last 24 hr 02/16/17 02/16/17 02/16/17 10:25 12:53 17:33 POC Glucose 105 124 H Total Creatine Kinase CK-MB (CK-2) Troponin I 0.390 H D 02/16/17 02/17/17 02/17/17 17:53 00:22 04:02 POC Glucose 110 H Total Creatine Kinase 30 D CK-MB (CK-2) 2.8 Troponin I 0.407 H 0.354 H 02/17/17 05:55 POC Glucose 87 Total Creatine Kinase CK-MB (CK-2) Troponin I Quality Measures - VTE Contraindication to Pharmacological VTE Prophylaxis: High Risk of Bleeding Specialty Discharge - Follow Up or Referrals
--- NOTE | 2017-02-17 09:13 | EKG Report ---
Stationary ECG Study [facility] Test Date: 02/17/2017 7:19:57 AM Pat Name: JONATHAN QUACH Department: Room: 123 Gender: F Support Service Tech: GHADA : 1965 Requested by: Popeye Anguiano Order Number: [id number] Reading MD: POPEYE ANGUIANO Intervals [place] Rate: 81 P: 9 AL: 145 QRS: 66 QRSD: 89 T: 177 QT: 365 QTc: 403 Interpretive Statements SINUS RHYTHM ST DEVIATION AND MODERATE T-WAVE ABNORMALITY, CONSIDER LATERAL ISCHEMIA INTERPRETATION BASED ON A DEFAULT AGE OF 40 YEARS Electronically Signed On 02-18-17 11:22:27 CDT by POPEYE ANGUIANO [email or web address]
[2017-02-17] MEDS: ASPIRIN EC 81 MG TABLET PO SCH (09:25)
[2017-02-17] MEDS: SODIUM BICARBONATE 650 MG TABLET PO SCH ×3 (09:25→21:35)
[2017-02-17] MEDS: CLOPIDOGREL 75 MG TABLET PO SCH (09:25)
[2017-02-17] MEDS: amLODIPine 2.5 MG TABLET PO SCH ×2 (09:25→21:34)
[2017-02-17] MEDS: METOPROLOL TARTRATE 25 MG TABLET PO SCH ×2 (09:25→21:34)
[2017-02-17] MEDS: hydrALAZINE 25 MG TABLET PO SCH ×3 (09:25→21:34)
[2017-02-17] MEDS: FAMOTIDINE 20 MG TABLET PO SCH (09:25)
[2017-02-17] MEDS: INSULIN LISPRO 100 UNIT/ML SUBCUT SCH ×2 (09:26→18:16)
--- NOTE | 2017-02-17 09:48 | Event Note ---
Ms. Fonseca is comfortable this morning actually has less erythema in the calf generally doing well I will reschedule her left below-knee amputation for Monday I think it is Porten that she stay here over the weekend dialyze as indicated in order to make certain she is fully prepared for surgery on Monday. I believe that we can perform that surgery safely without having to stop aspirin and Plavix. She agrees with this plan
--- NOTE | 2017-02-17 14:22 | Hospitalist Progress Note ---
Assessment and Plan (1) Diabetes mellitus Status: Chronic Current Visit: Yes Qualifiers: Diabetes mellitus type: type 2 Diabetes mellitus complication status: with kidney complications Chronic kidney disease stage: on chronic dialysis (2) Hypertension Status: Chronic Current Visit: No Qualifiers: Hypertension type: essential hypertension Qualified Code(s): I10 - Essential (primary) hypertension (3) Elevated troponin Status: Resolved Current Visit: No (4) ESRD (end stage renal disease) on dialysis Status: Chronic Current Visit: No (5) PAD (peripheral artery disease) Status: Acute Current Visit: No Hospitalist: Subjective Interval history: No acute events overnight. Doing well this morning. Denies chest pain. Plan is for surgery possibly Monday. FSG and blood pressure at acceptable ranges. Exam - Constitutional Vitals: Period Temp Pulse Resp BP Sys/Palma Pulse Ox Last 24 Hr 97.5 F-98.4 F 73-86 10-20 115-158/55-91 94-100 General appearance: over weight - Head Head exam: Present: normocephalic, atraumatic - Eye Eye exam: Present: EOMI Pupils: Present: KRISTOPHER - ENT ENT exam: Present: normal exam - Neck Neck exam: Present: normal inspection. Absent: tenderness - Respiratory Respiratory exam: Present: clear to auscultation bilaterally. Absent: rhonchi, wheezes - Cardiovascular Cardiovascular exam: Present: regular rate and rhythm - GI/Abdominal GI/Abdominal exam: Present: normal bowel sounds, soft. Absent: tenderness, rebound - Extremities Exam Extremities exam: Present: normal inspection - Back Exam Back exam: Present: normal inspection - Neurological Exam Neurological exam: Present: alert, oriented X3 - Psychiatric Psychiatric exam: Present: normal affect, normal mood - Skin Skin exam: Present: warm, intact Results - Labs CBC & BMP: 02/14/17 11:59 02/16/17 04:08 Quality Measures - VTE Contraindication to Pharmacological VTE Prophylaxis: High Risk of Bleeding Specialty Discharge - Follow Up or Referrals
[2017-02-17] MEDS: ATORVASTATIN 40 MG TABLET PO SCH (21:34)
[2017-02-18] MEDS: NITROGLYCERIN 2% OINT 1 INCH/GM PACK TOP SCH ×5 (00:44→23:57)
[2017-02-18 05:25] LABS: Calcium 7.6 MG/DL (8.5-10.1); Magnesium 2.2 MG/DL (1.8-2.4); Osmolality,Calculated 280.5 MOS/KG (273-304); Potassium 4.1 MMOL/L (3.5-5.1)
[2017-02-18] MEDS: INSULIN LISPRO 100 UNIT/ML SUBCUT SCH ×2 (08:27→18:07)
[2017-02-18] MEDS: CLOPIDOGREL 75 MG TABLET PO SCH (08:36)
[2017-02-18] MEDS: amLODIPine 2.5 MG TABLET PO SCH ×3 (08:36→23:57)
[2017-02-18] MEDS: METOPROLOL TARTRATE 25 MG TABLET PO SCH ×3 (08:36→23:57)
[2017-02-18] MEDS: hydrALAZINE 25 MG TABLET PO SCH ×4 (08:36→23:57)
[2017-02-18] MEDS: SODIUM BICARBONATE 650 MG TABLET PO SCH ×3 (08:37→22:44)
[2017-02-18] MEDS: FAMOTIDINE 20 MG TABLET PO SCH (08:37)
[2017-02-18] MEDS: ASPIRIN EC 81 MG TABLET PO SCH (08:37)
[2017-02-18] MEDS: SODIUM CHLORIDE 0.9% 250 ML IV SCH ×2 (08:38→14:41)
--- NOTE | 2017-02-18 09:48 | Cardiology Progress Note ---
Assessment and Plan (1) Cardiomyopathy Status: Chronic Assessment and plan: 02/14: This patient is currently compensated without heart failure symptoms currently. She has an ischemic cardiomyopathy and will be watched closely for evidence of perioperative ischemic symptoms or worsening heart failure. Current Visit: Yes (2) Diabetic infection of left foot Status: Acute Current Visit: Yes (3) ESRD on hemodialysis Status: Chronic Current Visit: Yes (4) Hypertension Status: Chronic Current Visit: Yes (5) Diabetes mellitus Status: Chronic Current Visit: Yes Qualifiers: Diabetes mellitus type: type 2 Diabetes mellitus complication status: with kidney complications Chronic kidney disease stage: on chronic dialysis (6) CAD (coronary artery disease) Status: Chronic Assessment and plan: She has extensive CAD which is not amenable to percutaneous or surgical revascularization. We will cover her with perioperative nitrates and check postoperative EKGs. 02/17: She has now undergone stenting across the ostium of the LAD into the left main. She tolerated this well without significant problems and has had no significant myocardial damage. She is overall stable without complaints and her plan will be to continue his currently. 02/18: She is stable post PCI and we will transfer her to 3 . Current Visit: Yes Cardiology - PN: Subj Interval history: Patient remained stable without complaints or problems this morning. She has had no chest pain and she can be transferred back to 3 E. today. Exam (Progress Note) - Constitutional Vitals: Period Temp Pulse Resp BP Sys/Palma Pulse Ox Last 24 Hr 97.6 F-99.1 F 72-85 12- 105-148/55-86 95-100 Exam: General:no acute distress. alert and oriented, patient has a flattened affect. HEENT: no new lesions, sclerae are clear, mouth and pharynx benign Neck: supple, trachea midline, no JVD noted Lungs: no rales ronchi or wheeze is noted. pt comfortable without accesory muscle use to assist with breathing CV: RRR no murmur rub or gallop is noted. Abd: soft and nontender, BSNA, no masses. Ext: no cyanosis, clubbing or edema. Vascular insufficiency changes bilaterally. Right below the knee amputation Neuro: grossly intact without focal neurologic deficit. Result/EKG - Labs CBC & BMP: 02/14/17 11:59 02/18/17 04:44 Labs: Laboratory Results - last 24 hr 02/14/17 02/17/17 02/17/17 11:59 11:27 18:03 Sodium Potassium Chloride Carbon Dioxide Anion Gap BUN Creatinine GFR Calculation BUN/Creatinine Ratio Glucose POC Glucose 152 H 125 H Calculated Osmolality Calcium Magnesium Blood Type O POSITIVE Crossmatch See Detail 02/18/17 02/18/17 02/18/17 00:04 04:44 06:24 Sodium 139 Potassium 4.1 Chloride 104 Carbon Dioxide 26 Anion Gap 13.1 BUN 24 H Creatinine 4.60 H GFR Calculation 10 BUN/Creatinine Ratio 5.00 L Glucose 105 POC Glucose 148 H 106 Calculated Osmolality 280.5 Calcium 7.6 L Magnesium 2.2 Blood Type Crossmatch Quality Measures - VTE Contraindication to Pharmacological VTE Prophylaxis: High Risk of Bleeding Specialty Discharge - Follow Up or Referrals
--- NOTE | 2017-02-18 12:32 | Nephrology Progress Note ---
Nephrology - PN: Subj Interval history: Pt in good spirits. Denies SOB/pain. CHD planned for today. S/P PCI c stenting s apparent complications. Exam (PN)-Nephrology - Vital Signs Vital signs: Period Temp Pulse Resp BP Sys/Palma Pulse Ox Last 24 Hr 97.6 F-99.1 F 72-85 12-31 105-148/56-86 95-100 - General Appearance General appearance: cachectic, chronically ill EENT: ATNC, PERRL Neck: no JVD, no thyromegaly Respiratory: no kyphosis, clear Cardiology: no murmurs, no rub Gastrointestinal: normoactive bowel sounds, no tenderness Integumentary: no rash, warm and dry Neurologic: no focal deficit, no asterixis, alert and oriented x3 Musculoskeletal: deformities, no erythema Psychiatric: mood/affect appropriate, cooperative - Lab 02/14/17 11:59 02/18/17 04:44 Most recent lab results Calcium 7.6 MG/DL (8.5-10.1) L 02/18/17 04:44 Magnesium 2.2 MG/DL (1.8-2.4) 02/18/17 04:44 Assessment and Plan (1) ESRD (end stage renal disease) on dialysis Problem details: Routine CHD today. UF to EDW as tolerated by hemodynamics. Status: Chronic Current Visit: No (2) CAD (coronary artery disease) Status: Chronic Current Visit: Yes Specialty Discharge - Follow Up or Referrals
--- NOTE | 2017-02-18 14:15 | Dialysis Note ---
Dialysis Note - Dialysis Note S: Pt seen on dialysis. No c/o. O: VSS A: ESRD on CHD, tolerating well s complications. P: Continue routine CHD as prescribed.
[2017-02-18] MEDS ORDERED: VANCOMYCIN INJ 1,000 MG in SODIUM CHLORIDE 0.9% 250 ML IV ONE (18:00)
[2017-02-18] MEDS: ATORVASTATIN 40 MG TABLET PO SCH (21:59)
[2017-02-19 04:08] LABS: Basophils % 0.2 % (0.0-0.8); Eosinophils # 0.4 10*3/uL (0.0-0.87); Eosinophils % 4.3 % (0.00-10.9); Hemoglobin 8.1 GM/DL (12.0-16.0); Immature Granulocytes % 0.3 %; Immature Granulocytes Absolute 0.03 #; Lymphocytes # 2.3 10*3/uL (1.4-4.0); Lymphocytes % 24.2 % (21.3-54.2); Mean Corpuscular Hemoglobin 26 PG (27-34); Mean Corpuscular Volume 87.9 FL (87-102); Mean Platelet Volume 9.3 FL (9.6-12.0); Monocytes % 10.6 % (1.7-12.7); Neutrophils # 5.7 10*3/uL (1.4-7.4); Neutrophils % 60.4 % (38.7-73.9); Platelet Count 293 T/CUMM (130-400); Red Blood Count 3.07 MC/CUMM (3.8-5.5); Red Cell Distribution Width 15.2 % (9.3-17.3); White Blood Count 9.4 T/CUMM (4-12)
[2017-02-19 04:33] LABS: Calcium 7.6 MG/DL (8.5-10.1); Magnesium 2.1 MG/DL (1.8-2.4); Osmolality,Calculated 276.5 MOS/KG (273-304); Potassium 3.6 MMOL/L (3.5-5.1)
[2017-02-19] MEDS: NITROGLYCERIN 2% OINT 1 INCH/GM PACK TOP SCH ×4 (06:14→23:30)
[2017-02-19] MEDS: INSULIN LISPRO 100 UNIT/ML SUBCUT SCH ×2 (07:40→17:38)
[2017-02-19] MEDS: SODIUM CHLORIDE 0.9% 250 ML IV SCH ×2 (07:40→16:16)
--- NOTE | 2017-02-19 09:53 | Cardiology Progress Note ---
Assessment and Plan (1) Cardiomyopathy Status: Chronic Assessment and plan: 02/14: This patient is currently compensated without heart failure symptoms currently. She has an ischemic cardiomyopathy and will be watched closely for evidence of perioperative ischemic symptoms or worsening heart failure. Current Visit: Yes (2) Diabetic infection of left foot Status: Acute Current Visit: Yes (3) ESRD on hemodialysis Status: Chronic Current Visit: Yes (4) Hypertension Status: Chronic Current Visit: Yes (5) Diabetes mellitus Status: Chronic Current Visit: Yes Qualifiers: Diabetes mellitus type: type 2 Diabetes mellitus complication status: with kidney complications Chronic kidney disease stage: on chronic dialysis (6) CAD (coronary artery disease) Status: Chronic Assessment and plan: She has extensive CAD which is not amenable to percutaneous or surgical revascularization. We will cover her with perioperative nitrates and check postoperative EKGs. 02/17: She has now undergone stenting across the ostium of the LAD into the left main. She tolerated this well without significant problems and has had no significant myocardial damage. She is overall stable without complaints and her plan will be to continue his currently. 02/18: She is stable post PCI and we will transfer her to [facility]. Current Visit: Yes Cardiology - PN: Subj Interval history: Patient continues cardiac stable without complaints this morning. She denies chest pain or dyspnea. She is for surgery in the morning. Exam (Progress Note) - Constitutional Vitals: Period Temp Pulse Resp BP Sys/Palma Pulse Ox Last 24 Hr 97.0 F-98.8 F 76-86 16-23 108-153/65-83 89-100 Exam: General:no acute distress. alert and oriented, patient has a flattened affect. HEENT: no new lesions, sclerae are clear, mouth and pharynx benign Neck: supple, trachea midline, no JVD noted Lungs: no rales ronchi or wheeze is noted. pt comfortable without accesory muscle use to assist with breathing CV: RRR no murmur rub or gallop is noted. Abd: soft and nontender, BSNA, no masses. Ext: no cyanosis, clubbing or edema. Left lower extremity dressed with bandage. vascular insufficiency changes bilaterally. Right below the knee amputation Neuro: grossly intact without focal neurologic deficit. Result/EKG - Labs CBC & BMP: 02/19/17 03:03 02/19/17 03:03 Labs: Laboratory Results - last 24 hr 02/18/17 02/18/17 02/19/17 11:31 17:47 00:50 WBC RBC Hgb Hct MCV MCH MCHC RDW Plt Count MPV Neut % (Auto) Lymph % (Auto) Maries % (Auto) Eos % (Auto) Baso % (Auto) Neut # (Auto) Lymph # (Auto) Maries # (Auto) Eos # (Auto) Baso # (Auto) Immature Gran % Nucleated RBC % Immature Gran # Nucleated RBCs # Sodium Potassium Chloride Carbon Dioxide Anion Gap BUN Creatinine GFR Calculation BUN/Creatinine Ratio Glucose POC Glucose 184 H 161 H 134 H Calculated Osmolality Calcium Magnesium 02/19/17 02/19/17 02/19/17 03:03 03:03 06:12 WBC 9.4 RBC 3.07 L Hgb 8.1 L Hct 27.0 L MCV 87.9 MCH 26 L MCHC 30.0 L RDW 15.2 Plt Count 293 MPV 9.3 L Neut % (Auto) 60.4 Lymph % (Auto) 24.2 Maries % (Auto) 10.6 Eos % (Auto) 4.3 Baso % (Auto) 0.2 Neut # (Auto) 5.7 Lymph # (Auto) 2.3 Maries # (Auto) 1.0 H Eos # (Auto) 0.4 Baso # (Auto) 0.0 Immature Gran % 0.3 Nucleated RBC % 0.0 Immature Gran # 0.03 Nucleated RBCs # 0.00 Sodium 139 Potassium 3.6 Chloride 100 Carbon Dioxide 30 Anion Gap 12.6 BUN 12 D Creatinine 2.90 H GFR Calculation 17 BUN/Creatinine Ratio 4.00 L Glucose 103 POC Glucose 87 Calculated Osmolality 276.5 Calcium 7.6 L Magnesium 2.1 Quality Measures - VTE Contraindication to Pharmacological VTE Prophylaxis: High Risk of Bleeding Specialty Discharge - Follow Up or Referrals
--- NOTE | 2017-02-19 10:01 | Event Note ---
No complaints. Patient has necrotic tissue of the foot. No sign of infection. Creatinine improved. Afebrile vital signs stable. Possible amputation in the near future.
[2017-02-19] MEDS: FAMOTIDINE 20 MG TABLET PO SCH (10:18)
[2017-02-19] MEDS: amLODIPine 2.5 MG TABLET PO SCH ×2 (10:18→21:00)
[2017-02-19] MEDS: METOPROLOL TARTRATE 25 MG TABLET PO SCH ×2 (10:18→21:00)
[2017-02-19] MEDS: hydrALAZINE 25 MG TABLET PO SCH ×3 (10:18→21:00)
[2017-02-19] MEDS: SODIUM BICARBONATE 650 MG TABLET PO SCH ×3 (10:18→21:00)
[2017-02-19] MEDS: ASPIRIN EC 81 MG TABLET PO SCH (10:18)
[2017-02-19] MEDS: CLOPIDOGREL 75 MG TABLET PO SCH (10:19)
--- NOTE | 2017-02-19 13:11 | Nephrology Progress Note ---
Nephrology - PN: Subj Interval history: Tolerated routine CHD yesterday without complications. Denies SOB/pain. Scheduled for left BKA in am. Exam (PN)-Nephrology - Vital Signs Vital signs: Period Temp Pulse Resp BP Sys/Palma Pulse Ox Last 24 Hr 97.9 F-98.8 F 76-86 16-18 108-153/65-83 89-97 - General Appearance General appearance: cachectic, chronically ill EENT: ATNC, PERRL, mucous membranes dry, hearing intact, vision intact Neck: no JVD, no thyromegaly Respiratory: no kyphosis, clear Cardiology: no murmurs, no rub, no edema Gastrointestinal: normoactive bowel sounds, no tenderness Integumentary: no rash, warm and dry Neurologic: no focal deficit, no asterixis, alert and oriented x3 Musculoskeletal: deformities, no erythema Psychiatric: mood/affect appropriate, cooperative - Lab 02/19/17 03:03 02/19/17 03:03 Most recent lab results Calcium 7.6 MG/DL (8.5-10.1) L 02/19/17 03:03 Magnesium 2.1 MG/DL (1.8-2.4) 02/19/17 03:03 Assessment and Plan (1) ESRD (end stage renal disease) on dialysis Problem details: No acute indication for HD at this time. Status: Chronic Assessment and plan: Next planned HD on Monday. UF to EDW as tolerated by hemodynamics. Current Visit: No (2) CAD (coronary artery disease) Status: Chronic Current Visit: Yes Specialty Discharge - Follow Up or Referrals
[2017-02-19] MEDS: ATORVASTATIN 40 MG TABLET PO SCH (21:00)
[2017-02-20 05:24] LABS: Calcium 8.2 MG/DL (8.5-10.1); Magnesium 2.4 MG/DL (1.8-2.4); Osmolality,Calculated 281.5 MOS/KG (273-304); Potassium 3.9 MMOL/L (3.5-5.1)
[2017-02-20] MEDS: SODIUM CHLORIDE 0.9% 250 ML IV SCH (05:41)
[2017-02-20] MEDS: NITROGLYCERIN 2% OINT 1 INCH/GM PACK TOP SCH ×3 (05:41→19:16)
[2017-02-20] MEDS ORDERED: VANCOMYCIN 500 MG VIAL ONE (08:35)
--- NOTE | 2017-02-20 08:35 | Nephrology Progress Note ---
Nephrology - PN: Subj Interval history: Ms. Fonseca is seen in follow-up of her end-stage renal disease. She is doing well and her chest is clear. She is not short of breath and is in no distress. She is status post percutaneous intervention for her LAD and has done well since that stent placement. Plan is for dialysis tomorrow. Surgery will be scheduled for amputation later Exam (PN)-Nephrology - Vital Signs Vital signs: Period Temp Pulse Resp BP Sys/Palma Pulse Ox Last 24 Hr 97.6 F-98.2 F 76-90 16-18 144-158/76-90 90-97 - Lab 02/19/17 03:03 02/20/17 03:12 Most recent lab results Calcium 8.2 MG/DL (8.5-10.1) L 02/20/17 03:12 Magnesium 2.4 MG/DL (1.8-2.4) 02/20/17 03:12 Assessment and Plan (1) ESRD (end stage renal disease) on dialysis Problem details: No acute indication for HD at this time. Status: Chronic Assessment and plan: 3x weekly dialysis Current Visit: No Specialty Discharge - Follow Up or Referrals
[2017-02-20] MEDS: amLODIPine 2.5 MG TABLET PO SCH ×2 (08:38→21:11)
[2017-02-20] MEDS: METOPROLOL TARTRATE 25 MG TABLET PO SCH ×2 (08:38→21:11)
[2017-02-20] MEDS: hydrALAZINE 25 MG TABLET PO SCH ×3 (08:38→21:11)
[2017-02-20] MEDS: INSULIN LISPRO 100 UNIT/ML SUBCUT SCH ×2 (08:47→17:11)
[2017-02-20] MEDS ORDERED: PHENYLEPHRINE 1 MG/10 ML SYRINGE IV ONE (09:27)
[2017-02-20] MEDS ORDERED: ETOMIDATE 20 MG/10 ML VIAL IV ONE (09:27)
[2017-02-20] MEDS ORDERED: PROPOFOL 200 MG/20 ML VIAL IV ONE (09:27)
[2017-02-20] MEDS ORDERED: LIDOCAINE 2% 5 ML VIAL ONE (09:27)
[2017-02-20] MEDS ORDERED: ONDANSETRON 4 MG/2 ML VIAL ONE (09:27)
[2017-02-20] MEDS ORDERED: GLYCOPYRROLATE 0.4 MG/2 ML VIAL ONE (09:27)
[2017-02-20] MEDS ORDERED: BUPIVACAINE 0.5% 50 ML VIAL ONE ×2 (09:53→10:00)
[2017-02-20] MEDS ORDERED: DEXTROSE 50% 25 GM/50 ML VIAL IV PRN (10:26)
[2017-02-20] MEDS ORDERED: GLUCAGON 1 MG VIAL IM PRN (10:26)
--- NOTE | 2017-02-20 10:26 | Operative Note ---
Date of procedure: 02/20/17 Procedure: Dr. Alvares operative report Merle Workmankman. 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 Description of the procedure: After the induction of LMA LMA anesthesia the patient's left lower leg is prepped with ChloraPrep and draped in usual fashion. Leg is marked for a posterior flap type of amputation skin incision was made with scalpel cautery was used to divide the cystic change tissue muscle bundles. The anterior tibial compartment is divided with cautery down to the fibula the anterior tibial neurovascular bundle was ligated with 0 silk and divided the fibula approximately Bee the tibia with a reciprocating saw was flap is completed with a large amputation knife there is no active bleeding from the popliteal artery but there are multiple small sites of bleeding with satisfactory muscle. Hemostasis is completed with cautery that popliteal nerve is amputated higher than the artery with the cautery the popliteal veins were ligated with 0 silk suture ligature of the leg is irrigated copiously the soleus muscle is removed to debulk the posterior flap I then bring the posterior fascial layer to the anterior fascial layer with #1 Vicryl using a pain pump and 1/4 inch Trego drain through and through the subcu was closed with 2-0 Monocryl the skin is closed with skin clips and 2-0 nylon sutures. Appropriate dressing with a posterior flap is in place blood loss is estimated at 200 cc sponge needle and his counts are correct and the patient was taken to the recovery room in stable condition. Surgeon / Physician: Nick Alvares Results - Labs CBC & BMP: 02/19/17 03:03 02/20/17 03:12 Discharge Plan - Discharge Medications No Action Sodium Bicarb Tab 1,300 mg PO TID Atorvastatin [Lipitor] 40 mg PO BEDTIME Famotidine Tab [Pepcid Tab] 20 mg PO BID tablet Aspirin EC Tab 81 mg PO DAILY tablet Cilostazol [Pletal] 50 mg PO BID tablet Enoxaparin [Lovenox] 30 mg SUBCUT Q24H syringe Isosorbide Mononitrate [Imdur] 15 mg PO DAILY tablet amLODIPine [Norvasc] 2.5 mg PO BID tablet hydrALAZINE TAB [Apresoline Tab] 25 mg PO TID tablet - Follow Up or Referral - Forms/Instructions Instructions: Left Heart Catheterization (DC), Heart Healthy Diet (GEN), Coronary Intravascular Stent Placement (DC)
[2017-02-20] MEDS ORDERED: fentaNYL 100 MCG/2 ML VIAL ONE (10:32)
[2017-02-20] MEDS ORDERED: SEVOFLURANE 1 UNIT/15 MINUTE INH ONE (10:32)
[2017-02-20] MEDS ORDERED: MORPHINE 2 MG/1 ML SYRINGE IV ONE (10:50)
[2017-02-20] MEDS ORDERED: MORPHINE 10 MG/1 ML VIAL ONE (10:52)
--- NOTE | 2017-02-20 12:29 | Hospitalist Progress Note ---
Assessment and Plan (1) Diabetes mellitus Status: Chronic Current Visit: Yes Qualifiers: Diabetes mellitus type: type 2 Diabetes mellitus complication status: with kidney complications Chronic kidney disease stage: on chronic dialysis (2) Hypertension Status: Chronic Current Visit: No Qualifiers: Hypertension type: essential hypertension Qualified Code(s): I10 - Essential (primary) hypertension (3) ESRD (end stage renal disease) on dialysis Problem details: No acute indication for HD at this time. Status: Chronic Current Visit: No (4) PAD (peripheral artery disease) Status: Acute Current Visit: No Hospitalist: Subjective Interval history: Patient s/p L BKA this morning. Complaining of pain. ROUND BONER has already been ordered. FSGs have been acceptable for inpatient. No changes today. Will continue to monitor. Exam - Constitutional Vitals: Period Temp Pulse Resp BP Sys/Palma Pulse Ox Last 24 Hr 97.6 F-99.2 F 74-90 12-18 103-158/59-90 90-98 General appearance: over weight - Head Head exam: Present: normocephalic, atraumatic - Eye Eye exam: Present: EOMI Pupils: Present: KRISTOPHER - ENT ENT exam: Present: normal exam - Respiratory Respiratory exam: Present: clear to auscultation bilaterally. Absent: rhonchi, wheezes - Cardiovascular Cardiovascular exam: Present: regular rate and rhythm - GI/Abdominal GI/Abdominal exam: Present: normal bowel sounds, soft. Absent: tenderness, rebound - Extremities Exam Extremities exam: Present: other (L BKA, wrapped) - Neurological Exam Neurological exam: Present: alert, oriented X3 - Psychiatric Psychiatric exam: Present: normal affect, normal mood - Skin Skin exam: Present: warm, intact Results - Labs CBC & BMP: 02/19/17 03:03 02/20/17 03:12 Quality Measures - VTE Contraindication to Pharmacological VTE Prophylaxis: High Risk of Bleeding Specialty Discharge - Follow Up or Referrals
--- NOTE | 2017-02-20 13:15 | Anesthesia ---
Anesthesia Post OP - Post Ansesthetic Evaluation Patient seen in post op: Yes Resp: within normal limits CV: within normal limits Mental: within normal limits Temp: within normal limits [id number]: within normal limits Nausea and Vomiting: within normal limits Pain: within normal limits
[2017-02-20] MEDS: ASPIRIN EC 81 MG TABLET PO SCH (16:34)
[2017-02-20] MEDS: FAMOTIDINE 20 MG TABLET PO SCH (16:34)
[2017-02-20] MEDS: SODIUM BICARBONATE 650 MG TABLET PO SCH ×3 (16:35→21:11)
[2017-02-20] MEDS: CLOPIDOGREL 75 MG TABLET PO SCH (17:15)
--- NOTE | 2017-02-20 18:24 | Cardiology Progress Note ---
Betzaida Simmons April RN, am scribing for, and in the presence of, Kelechi Mena MD 18:23. Assessment and Plan (1) Status post insertion of drug eluting coronary artery stent Status: Acute Assessment and plan: Heart rate is better. Plan/recommendation: Agree with getting back on the dual antiplatelet therapy,, ,DAPT, low-dose aspirin and the clopidogrel, given the recent coronary artery stent. Current Visit: Yes (2) Cardiomyopathy Status: Chronic Current Visit: Yes (3) Diabetic infection of left foot Status: Acute Current Visit: Yes (4) ESRD on hemodialysis Status: Chronic Current Visit: Yes (5) Hypertension Status: Chronic Current Visit: Yes (6) Diabetes mellitus Status: Chronic Current Visit: Yes Qualifiers: Diabetes mellitus type: type 2 Diabetes mellitus complication status: with kidney complications Chronic kidney disease stage: on chronic dialysis (7) CAD (coronary artery disease) Status: Chronic Current Visit: Yes (8) Status post below knee amputation of left lower extremity Status: Acute Current Visit: Yes Cardiology - PN: Subj Interval history: Ms. Fonseca is a 51-year-old female who has been followed by Dr. Orellana in the hospital setting, but she has not followed up with anyone outpatient. She has a history of cardiomyopathy, CHF, hypertension, CVA, peripheral neuropathy, glaucoma, diabetes, dyslipidemia, renal failure on dialysis, GERD, and anemia. She had arthrectomy and angioplasty of proximal posterior tibial artery occlusion Dr. Orellana in December of this year. She has heart cath done January 03, [address] Orellana that showed diffuse disease and very small vessels. He thought it would be best if she were treated medically. We are asked to see her February 14 in consult for cardiac clearance for a left BKA. She was taken to surgery on February 15 and had a bradycardic arrest at the initiation of anesthesia. She did not require intubation, but had a brief period of cardiac external massage. Surgery was canceled and EKG and troponins were checked. Initial troponin was 0.440, second troponin was 0.546. Heart cath done by Dr. Anguiano on February 16 with the following findings and recommendations: Conclusions: Successful percutaneous intervention of the ostial LAD with a 2.25 x 12 mm Zions drug-eluting stent taken to 2.5 mm post dilated with a noncompliant balloon Minx closure right femoral arteriotomy site Discussion and recommendations: Patient presents with bradycardic arrest with induction of general anesthesia for a left below the knee amputation yesterday. On review of her cath films it was noted that she had a tight ostial LAD stenosis which I felt was approachable with percutaneous intervention. This is now been completed with a good angiographic result. We will continue her anti-thrombotic antiplatelet medications. She should be able to have her left below the knee amputation as optimally treated as possible from a cardiovascular standpoint. Findings have been reviewed with the patient and with her family. She did well over the weekend from a cardiac standpoint and left BKA surgery was scheduled for today. She is seen today status post left BKA. She is obviously in pain, stating it is from her surgery today. Dressing noted to left stump. She denies chest pain , shortness of breath, palpitations, or dizziness. Oxygen is in use via nasal biprong. Vitals have been stable throughout the night and today. Plavix was held for surgery, Pletal 50 twice daily is scheduled to start tonight. Exam (Progress Note) - Constitutional Vitals: Period Temp Pulse Resp BP Sys/Palma Pulse Ox Last 24 Hr 97.6 F-99.2 F 74-90 12-18 103-158/59-90 90-98 General appearance: normal weight, no acute distress - Head Head exam: Absent: abrasion, hematoma - Eye Eye exam: Absent: periorbital swelling, laceration to eyelids - Respiratory Respiratory exam: Present: clear to auscultation bilaterally, other (Oxygen via nasal biprong). Absent: accessory muscle use, chest wall tenderness - Cardiovascular Cardiovascular exam: Present: regular rate and rhythm. Absent: rubs - GI/Abdominal GI/Abdominal exam: Present: normal bowel sounds, soft. Absent: distended, tenderness - Extremities Exam Extremities exam: Present: other (Left BKA with dressing, right BKA). Absent: edema - Neurological Exam Neurological exam: Present: alert, oriented X3 - Psychiatric Psychiatric exam: Present: normal affect, normal mood, other (Grimacing with postsurgical pain) - Skin Skin exam: Present: warm, dry Result/EKG - Labs CBC & BMP: 02/19/17 03:03 02/20/17 03:12 Lab Results: I have reviewed the past 24 hour labs Labs: Laboratory Results - last 24 hr 02/19/17 02/19/17 02/20/17 17:10 23:26 03:12 Sodium 139 Potassium 3.9 Chloride 100 Carbon Dioxide 27 Anion Gap 15.9 H BUN 26 H Creatinine 4.70 H GFR Calculation 10 BUN/Creatinine Ratio 5.00 L Glucose 102 POC Glucose 172 H 128 H Calculated Osmolality 281.5 Calcium 8.2 L Magnesium 2.4 02/20/17 05:40 Sodium Potassium Chloride Carbon Dioxide Anion Gap BUN Creatinine GFR Calculation BUN/Creatinine Ratio Glucose POC Glucose 113 H Calculated Osmolality Calcium Magnesium Quality Measures - VTE Contraindication to Pharmacological VTE Prophylaxis: High Risk of Bleeding Specialty Discharge - Follow Up or Referrals Trina Simmons Dale, MD, personally performed the services described in this documentation, ascribed by Maria Del Carmen Huston RN in my presence, and it is both accurate and complete [id number] .
[2017-02-20] MEDS: HYDROmorphone PCA 30 MG/30 ML SYRINGE IV SCH (21:00)
[2017-02-20] MEDS: ATORVASTATIN 40 MG TABLET PO SCH (21:11)
[2017-02-20] MEDS: CILOSTAZOL 50 MG TABLET PO SCH (21:11)
[2017-02-21] MEDS: NITROGLYCERIN 2% OINT 1 INCH/GM PACK TOP SCH ×4 (01:10→18:49)
[2017-02-21] MEDS: ONDANSETRON 4 MG/2 ML VIAL IV PRN (01:19)
[2017-02-21 06:33] LABS: Calcium 7.6 MG/DL (8.5-10.1); Osmolality,Calculated 281.7 MOS/KG (273-304); Potassium 4.2 MMOL/L (3.5-5.1)
[2017-02-21 06:52] LABS: Basophils % 0.3 % (0.0-0.8); Eosinophils # 0.4 10*3/uL (0.0-0.87); Eosinophils % 3.3 % (0.00-10.9); Hematocrit 22.4 VOL% (35.7-47.0); Immature Granulocytes % 0.5 %; Immature Granulocytes Absolute 0.06 #; Lymphocytes # 1.6 10*3/uL (1.4-4.0); Lymphocytes % 14.6 % (21.3-54.2); Mean Corpuscular HGB Conc 30.8 GM/DL (32-36); Mean Corpuscular Hemoglobin 27 PG (27-34); Mean Corpuscular Volume 87.8 FL (87-102); Mean Platelet Volume 8.9 FL (9.6-12.0); Monocytes # 0.9 10*3/uL (0.11-0.8); Monocytes % 8.3 % (1.7-12.7); Neutrophils # 8.2 10*3/uL (1.4-7.4); Platelet Count 279 T/CUMM (130-400); Red Blood Count 2.55 MC/CUMM (3.8-5.5); Red Cell Distribution Width 15.1 % (9.3-17.3); White Blood Count 11.2 T/CUMM (4-12)
[2017-02-21 06:55] LABS: Hemoglobin 6.9 GM/DL (12.0-16.0)
[2017-02-21] MEDS: INSULIN LISPRO 100 UNIT/ML SUBCUT SCH ×2 (08:00→18:51)
--- NOTE | 2017-02-21 08:57 | Dialysis Note ---
Dialysis Note - Dialysis Note Patient is seen on dialysis she is tolerating the procedure. Blood pressures noted to be 112/57.
[2017-02-21] MEDS: SODIUM BICARBONATE 650 MG TABLET PO SCH ×3 (09:00→21:57)
[2017-02-21] MEDS: hydrALAZINE 25 MG TABLET PO SCH ×3 (09:00→21:57)
[2017-02-21] MEDS ORDERED: HEPARIN 10,000 UNIT/10 ML VIAL IV PRN (09:33)
--- NOTE | 2017-02-21 09:53 | Event Note ---
Mrs. Fonseca's vital signs look good she is complaining of some pain in the stump as would be expected. Her blood count is down to an hematocrit of 22 so I am going to give 2 units of packed cells on dialysis today. We should go ahead and start making plans for her to go to [facility] rehabilitation and she can move there whenever stable I will plan to leave the posterior splint on until at least Monday
--- NOTE | 2017-02-21 10:09 | Dialysis Note ---
Dialysis Note - Dialysis Note Ms. Fonseca is seen during hemodialysis. Her hematocrit is 22 and she is to receive packed red cells today. 2 units of been ordered and that is fine. She is having pain but no more than expected.
[2017-02-21 11:05] LABS: Hepatitis B Surface Ab Result Positive; Hepatitis B Surface Ag Quant < 0.10 Index; Hepatitis B Surface Ag Result Negative (Negative)
--- NOTE | 2017-02-21 11:19 | Pathology Report from [facility] ---
ACCESSION # : [id number] PATIENT NAME : Jonathan Fonseca ORDERING DR : SHRUTHI LEAL MD CLINICAL HX: Left foot gangrene POST-OP DX: Same SPECIMEN INFO: Left lower leg GROSS DESCRIPTION: The specimen is received fresh labeled with the patient's name Jonathan Fonseca consists of a below the knee amputation that measures 31.1 cm. The skin is light james and hairless. The 4th and 5th toes are surgically absent. A large ulcerated area that extends to plantar surface is noted measuring 11 x 3.6 cm. There is a 6.1 x 5.5 cm ulcerated area in the area of the heel. The inferior an tibial and posterior tibial artery are calcified as well as thrombosed areas present within the vein. Event Sales Assistant sections submitted A-Tibial artery, vein, following decalcification, B-Event Sales Assistant ulcerated tissue. DIAGNOSIS FOR JONATHAN FONSECA: LEFT LEG, BELOW KNEE AMPUTATION: Wet gangrene. Severe calcified atheromatous occlusive disease. SERVICE DATE: 02/20/2017 REPORT DATE: 02/21/2017 PATHOLOGIST: Colt Kwon
--- NOTE | 2017-02-21 13:15 | Hospitalist Progress Note ---
Assessment and Plan (1) Diabetes mellitus Status: Chronic Current Visit: Yes Qualifiers: Diabetes mellitus type: type 2 Diabetes mellitus complication status: with kidney complications Chronic kidney disease stage: on chronic dialysis (2) Hypertension Status: Chronic Current Visit: No Qualifiers: Hypertension type: essential hypertension Qualified Code(s): I10 - Essential (primary) hypertension (3) ESRD (end stage renal disease) on dialysis Problem details: No acute indication for HD at this time. Status: Chronic Current Visit: No (4) PAD (peripheral artery disease) Status: Chronic Current Visit: No Hospitalist: Subjective Interval history: Patient seen on HD. Doing well. FSGs are acceptable. No changes today. Exam - Constitutional Vitals: Period Temp Pulse Resp BP Sys/Palma Pulse Ox Last 24 Hr 97.2 F-98.2 F 67-83 18-19 106-130/61-96 95-100 General appearance: over weight - Head Head exam: Present: normocephalic, atraumatic - Eye Eye exam: Present: EOMI Pupils: Present: KRISTOPHER - ENT ENT exam: Present: normal exam - Neck Neck exam: Present: normal inspection - Respiratory Respiratory exam: Present: clear to auscultation bilaterally. Absent: wheezes - Cardiovascular Cardiovascular exam: Present: regular rate and rhythm - GI/Abdominal GI/Abdominal exam: Present: normal bowel sounds, soft. Absent: tenderness, rebound - Extremities Exam Extremities exam: Present: other (bka) - Back Exam Back exam: Present: normal inspection - Neurological Exam Neurological exam: Present: alert, oriented X3 - Psychiatric Psychiatric exam: Present: normal affect, normal mood - Skin Skin exam: Present: normal color, intact Results - Labs CBC & BMP: 02/21/17 06:37 02/21/17 05:34 Quality Measures - VTE Contraindication to Pharmacological VTE Prophylaxis: High Risk of Bleeding Specialty Discharge - Follow Up or Referrals
[2017-02-21] MEDS: ASPIRIN EC 81 MG TABLET PO SCH (14:13)
[2017-02-21] MEDS: METOPROLOL TARTRATE 25 MG TABLET PO SCH ×2 (14:14→21:57)
[2017-02-21] MEDS: amLODIPine 2.5 MG TABLET PO SCH ×2 (14:14→21:57)
[2017-02-21] MEDS: FAMOTIDINE 20 MG TABLET PO SCH (14:15)
[2017-02-21] MEDS: CLOPIDOGREL 75 MG TABLET PO SCH (14:15)
[2017-02-21] MEDS: CILOSTAZOL 50 MG TABLET PO SCH ×2 (14:15→21:57)
--- NOTE | 2017-02-21 17:35 | Cardiology Progress Note ---
Betzaida Simmons April RN, am scribing for, and in the presence of, Kelechi Mena MD 17:35. Assessment and Plan (1) Status post insertion of drug eluting coronary artery stent Status: Acute Assessment and plan: Initial assessment 02/20/17 Heart rate is better. Plan/recommendation: Agree with getting back on the dual antiplatelet therapy,, ,DAPT, low-dose aspirin and the clopidogrel, given the recent coronary artery stent. 02/21/2017: Assessment/plan/recommendation: No angina. Hematocrit is low, so she is being given 2 units of blood. Had some epistaxis. The nurse and I conferred care and we are to leave her off the oxygen. It probably is just some irritation from the oxygen in addition to her being on the DAP T. Will order some Vaseline to the nose as needed for more epistaxis. Current Visit: Yes (2) Cardiomyopathy Status: Chronic Current Visit: Yes (3) Diabetic infection of left foot Status: Acute Current Visit: Yes (4) ESRD on hemodialysis Status: Chronic Current Visit: Yes (5) Hypertension Status: Chronic Current Visit: Yes (6) Diabetes mellitus Status: Chronic Current Visit: Yes Qualifiers: Diabetes mellitus type: type 2 Diabetes mellitus complication status: with kidney complications Chronic kidney disease stage: on chronic dialysis (7) CAD (coronary artery disease) Status: Chronic Current Visit: Yes (8) Status post below knee amputation of left lower extremity Status: Acute Current Visit: Yes Cardiology - PN: Subj Interval history: Patient is seen sitting up in bed in no acute distress. Oxygen use via nasal biprong. She is 5 days post her stent to the ostial LAD and 1 day postop left BKA. She denies chest pain, shortness of breath, palpitations, or dizziness. Her only complaint is of pain to her left leg. Vital signs have been stable throughout the night. Her Plavix was restarted yesterday at 75 mg daily as well as her baby aspirin. Her H&H is low today is 6.9 and 22.4. She is scheduled for dialysis today. Exam (Progress Note) - Constitutional Vitals: Period Temp Pulse Resp BP Sys/Palma Pulse Ox Last 24 Hr 97.2 F-99.2 F 67-81 12-19 91-147/50-96 94-100 General appearance: no acute distress - Head Head exam: Absent: abrasion, hematoma - Eye Eye exam: Absent: periorbital swelling, laceration to eyelids - Neck Neck exam: Absent: tenderness - Respiratory Respiratory exam: Present: clear to auscultation bilaterally, other (Oxygen via nasal biprong). Absent: accessory muscle use, chest wall tenderness - Cardiovascular Cardiovascular exam: Present: regular rate and rhythm - GI/Abdominal GI/Abdominal exam: Present: normal bowel sounds, soft. Absent: distended, tenderness - Extremities Exam Extremities exam: Present: other (Left BKA with dressing, right BKA). Absent: edema - Neurological Exam Neurological exam: Present: alert, oriented X3 - Psychiatric Psychiatric exam: Present: flat affect - Skin Skin exam: Present: warm, dry Result/EKG - Labs CBC & BMP: 02/21/17 06:37 02/21/17 05:34 Lab Results: I have reviewed the past 24 hour labs Labs: Laboratory Results - last 24 hr 02/20/17 02/20/17 02/20/17 17:08 20:03 23:54 WBC RBC Hgb Hct MCV MCH MCHC RDW Plt Count MPV Neut % (Auto) Lymph % (Auto) [place] % (Auto) Eos % (Auto) Baso % (Auto) Neut # (Auto) Lymph # (Auto) [place] # (Auto) Eos # (Auto) Baso # (Auto) Immature Gran % Nucleated RBC % Immature Gran # Nucleated RBCs # Sodium Potassium Chloride Carbon Dioxide Anion Gap BUN Creatinine GFR Calculation BUN/Creatinine Ratio Glucose POC Glucose 92 116 H 113 H Calculated Osmolality Calcium Random Vancomycin 02/21/17 02/21/17 02/21/17 03:36 05:34 05:34 WBC RBC Hgb Hct MCV MCH MCHC RDW Plt Count MPV Neut % (Auto) Lymph % (Auto) [place] % (Auto) Eos % (Auto) Baso % (Auto) Neut # (Auto) Lymph # (Auto) [place] # (Auto) Eos # (Auto) Baso # (Auto) Immature Gran % Nucleated RBC % Immature Gran # Nucleated RBCs # Sodium 138 Potassium 4.2 Chloride 100 Carbon Dioxide 28 Anion Gap 14.2 BUN 31 H Creatinine 5.80 H GFR Calculation 7 BUN/Creatinine Ratio 5.00 L Glucose 94 POC Glucose 105 Calculated Osmolality 281.7 Calcium 7.6 L Random Vancomycin 24.6 04/04/17 04/04/17 06:37 06:40 WBC 11.2 RBC 2.55 L Hgb 6.9 L Hct 22.4 L MCV 87.8 MCH 27 MCHC 30.8 L RDW 15.1 Plt Count 279 MPV 8.9 L Neut % (Auto) 73.0 Lymph % (Auto) 14.6 L [place] % (Auto) 8.3 Eos % (Auto) 3.3 Baso % (Auto) 0.3 Neut # (Auto) 8.2 H Lymph # (Auto) 1.6 [place] # (Auto) 0.9 H Eos # (Auto) 0.4 Baso # (Auto) 0.0 Immature Gran % 0.5 Nucleated RBC % 0.0 Immature Gran # 0.06 Nucleated RBCs # 0.00 Sodium Potassium Chloride Carbon Dioxide Anion Gap BUN Creatinine GFR Calculation BUN/Creatinine Ratio Glucose POC Glucose 95 Calculated Osmolality Calcium Random Vancomycin Quality Measures - VTE Contraindication to Pharmacological VTE Prophylaxis: High Risk of Bleeding Specialty Discharge - Follow Up or Referrals Trina Simmons Dale, MD, personally performed the services described in this documentation, ascribed by Maria Del Carmen Huston RN in my presence, and it is both accurate and complete [id number] .
[2017-02-21] MEDS ORDERED: WHITE PETROLATUM 30 GM TUBE TOP PRN (17:39)
[2017-02-21] MEDS ORDERED: VANCOMYCIN INJ 1,000 MG in SODIUM CHLORIDE 0.9% 250 ML IV ONE (18:00)
[2017-02-21] MEDS: HYDROmorphone PCA 30 MG/30 ML SYRINGE IV SCH (20:39)
[2017-02-21] MEDS: ATORVASTATIN 40 MG TABLET PO SCH (21:57)
[2017-02-22] MEDS: NITROGLYCERIN 2% OINT 1 INCH/GM PACK TOP SCH ×5 (01:20→23:23)
[2017-02-22] MEDS: INSULIN LISPRO 100 UNIT/ML SUBCUT SCH ×2 (08:18→17:14)
--- NOTE | 2017-02-22 08:28 | Nephrology Progress Note ---
Nephrology - PN: Subj Interval history: Ms. Fonseca is seen in follow-up of her end-stage renal disease. She is doing well and is not having chest pain nor is she having shortness of breath. Pain from her amputation seems controlled. She still using a pain control pump. Her chest is clear and her heart without rub or gallop. She is asking about when she would go home and explained that she likely will need to be working on transfers with physical therapy etc. Exam (PN)-Nephrology - Vital Signs Vital signs: Period Temp Pulse Resp BP Sys/Palma Pulse Ox Last 24 Hr 97.6 F-100.1 F 80-88 16-20 122-153/65-81 90-95 - Lab 02/21/17 06:37 02/21/17 05:34 Most recent lab results Calcium 7.6 MG/DL (8.5-10.1) L 02/21/17 05:34 Magnesium 2.4 MG/DL (1.8-2.4) 02/20/17 03:12 Assessment and Plan (1) ESRD (end stage renal disease) on dialysis Problem details: No acute indication for HD at this time. Status: Chronic Assessment and plan: 3x weekly dialysis Current Visit: No Specialty Discharge - Follow Up or Referrals
[2017-02-22 10:02] LABS: Basophils % 0.2 % (0.0-0.8); Eosinophils # 0.2 10*3/uL (0.0-0.87); Eosinophils % 1.5 % (0.00-10.9); Hematocrit 27.9 VOL% (35.7-47.0); Hemoglobin 8.8 GM/DL (12.0-16.0); Immature Granulocytes % 0.9 %; Immature Granulocytes Absolute 0.11 #; Lymphocytes % 16.3 % (21.3-54.2); Mean Corpuscular HGB Conc 31.5 GM/DL (32-36); Mean Corpuscular Hemoglobin 28 PG (27-34); Mean Corpuscular Volume 88.6 FL (87-102); Mean Platelet Volume 8.7 FL (9.6-12.0); Monocytes # 1.3 10*3/uL (0.11-0.8); Monocytes % 10.9 % (1.7-12.7); Neutrophils # 8.5 10*3/uL (1.4-7.4); Neutrophils % 70.2 % (38.7-73.9); Platelet Count 274 T/CUMM (130-400); Red Blood Count 3.15 MC/CUMM (3.8-5.5); Red Cell Distribution Width 14.7 % (9.3-17.3); White Blood Count 12.1 T/CUMM (4-12)
[2017-02-22] MEDS: hydrALAZINE 25 MG TABLET PO SCH ×3 (10:05→21:08)
[2017-02-22] MEDS: METOPROLOL TARTRATE 25 MG TABLET PO SCH ×2 (10:05→21:08)
[2017-02-22] MEDS: ASPIRIN EC 81 MG TABLET PO SCH (10:05)
[2017-02-22] MEDS: amLODIPine 2.5 MG TABLET PO SCH ×2 (10:05→21:08)
[2017-02-22] MEDS: SODIUM BICARBONATE 650 MG TABLET PO SCH ×3 (10:06→23:23)
[2017-02-22] MEDS: CLOPIDOGREL 75 MG TABLET PO SCH (10:06)
[2017-02-22] MEDS: CILOSTAZOL 50 MG TABLET PO SCH ×2 (10:06→21:08)
[2017-02-22] MEDS: FAMOTIDINE 20 MG TABLET PO SCH (10:06)
--- NOTE | 2017-02-22 15:10 | Event Note ---
Ms. Fonseca vital signs and labs look good she is reasonably comfortable I am pleased to change the dressing on Monday I think we can go ahead and start looking into transfer to rehab
--- NOTE | 2017-02-22 15:46 | Hospitalist Progress Note ---
Assessment and Plan (1) Diabetes mellitus Status: Chronic Current Visit: Yes Qualifiers: Diabetes mellitus type: type 2 Diabetes mellitus complication status: with kidney complications Chronic kidney disease stage: on chronic dialysis (2) Hypertension Status: Chronic Current Visit: No Qualifiers: Hypertension type: essential hypertension Qualified Code(s): I10 - Essential (primary) hypertension (3) ESRD (end stage renal disease) on dialysis Problem details: No acute indication for HD at this time. Status: Chronic Current Visit: No (4) PAD (peripheral artery disease) Status: Chronic Current Visit: No Hospitalist: Subjective Interval history: No acute events overnight. Patient doing better. FSGs remain acceptable. No changes today. Exam - Constitutional Vitals: Period Temp Pulse Resp BP Sys/Palma Pulse Ox Last 24 Hr 98.7 F-100.1 F 80-88 18-20 122-146/65-91 90-98 General appearance: over weight - Head Head exam: Present: normocephalic, atraumatic - Eye Eye exam: Present: EOMI Pupils: Present: KRISTOPHER - ENT ENT exam: Present: normal exam - Neck Neck exam: Present: normal inspection - Respiratory Respiratory exam: Present: clear to auscultation bilaterally. Absent: rhonchi, wheezes - Cardiovascular Cardiovascular exam: Present: regular rate and rhythm - GI/Abdominal GI/Abdominal exam: Present: normal bowel sounds, soft. Absent: tenderness, rebound - Extremities Exam Extremities exam: Present: normal inspection - Neurological Exam Neurological exam: Present: alert, oriented X3 - Psychiatric Psychiatric exam: Present: normal affect, normal mood - Skin Skin exam: Present: warm, intact Results - Labs CBC & BMP: 02/22/17 09:52 02/21/17 05:34 Quality Measures - VTE Contraindication to Pharmacological VTE Prophylaxis: High Risk of Bleeding Specialty Discharge - Follow Up or Referrals
--- NOTE | 2017-02-22 19:42 | Cardiology Progress Note ---
I, Maria Del Carmen Huston RN, am scribing for, and in the presence of, Kelechi Mena MD 19:42. Assessment and Plan (1) Status post insertion of drug eluting coronary artery stent Status: Acute Assessment and plan: Initial assessment 02/20/17 Heart rate is better. Plan/recommendation: Agree with getting back on the dual antiplatelet therapy,, ,DAPT, low-dose aspirin and the clopidogrel, given the recent coronary artery stent. 02/21/2017:Assessment/plan/recommendation: No angina. Hematocrit is low, so she is being given 2 units of blood. Had some epistaxis. The nurse and I conferred care and we are to leave her off the oxygen. It probably is just some irritation from the oxygen in addition to her being on the DAP T. Will order some Vaseline to the nose as needed for more epistaxis. 02/22/2017: Assessment/plan/recommendation: After 2 units of blood, recheck of CBC revealed that it is up to about 26 mg percent. Will recheck CBC in a.m. to ensure she does not continue to have loss of blood. Otherwise no angina. She is doing well back on her aspirin and Plavix. Current Visit: Yes (2) Cardiomyopathy Status: Chronic Current Visit: Yes (3) Diabetic infection of left foot Status: Acute Current Visit: Yes (4) ESRD on hemodialysis Status: Chronic Current Visit: Yes (5) Hypertension Status: Chronic Current Visit: Yes (6) Diabetes mellitus Status: Chronic Current Visit: Yes Qualifiers: Diabetes mellitus type: type 2 Diabetes mellitus complication status: with kidney complications Chronic kidney disease stage: on chronic dialysis (7) CAD (coronary artery disease) Status: Chronic Current Visit: Yes (8) Status post below knee amputation of left lower extremity Status: Acute Current Visit: Yes Cardiology - PN: Subj Interval history: [employer]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 Fonseca is seen sitting up in bed in no acute distress. She is status post a 2 left BKA. She reports her pain is better from this. She also had drug- eluting stent to ostial LAD on February 16. She denies chest pain, shortness of breath, palpitations, or dizziness. Oxygen is not in use. She ran a temp of 100.1 yesterday afternoon, otherwise vitals have been stable. Her Plavix and baby aspirin have both been restarted. Her H&H yesterday was 6.9 and 22.4. She received 2 units of blood product while on dialysis. We will check a CBC today. Exam (Progress Note) - Constitutional Vitals: Period Temp Pulse Resp BP Sys/Palma Pulse Ox Last 24 Hr 97.6 F-100.1 F 80-88 16-20 122-153/65-81 90-95 General appearance: no acute distress - Head Head exam: Absent: abrasion, hematoma - Eye Eye exam: Absent: periorbital swelling, laceration to eyelids - Respiratory Respiratory exam: Present: clear to auscultation bilaterally. Absent: accessory muscle use, chest wall tenderness - Cardiovascular Cardiovascular exam: Present: regular rate and rhythm - GI/Abdominal GI/Abdominal exam: Present: normal bowel sounds, soft. Absent: distended, tenderness - Extremities Exam Extremities exam: Present: other (Right BKA, dressing to left BKA). Absent: edema - Neurological Exam Neurological exam: Present: alert, oriented X3 - Psychiatric Psychiatric exam: Present: normal mood, flat affect - Skin Skin exam: Present: warm, dry Result/EKG - Labs CBC & BMP: 02/22/17 09:52 02/21/17 05:34 Lab Results: I have reviewed the past 24 hour labs Labs: Laboratory Results - last 24 hr 02/21/17 02/21/17 02/21/17 06:37 16:07 19:52 POC Glucose 117 H 108 H Hep Bs Antigen Hep Bs Antibody Blood Type O POSITIVE Antibody Screen Negative Crossmatch See Detail 02/21/17 02/22/17 02/22/17 Unknown 00:16 03:31 POC Glucose 102 99 Hep Bs Antigen Negative Hep Bs Antibody Positive Blood Type Antibody Screen Crossmatch 02/22/17 07:14 POC Glucose 78 Hep Bs Antigen Hep Bs Antibody Blood Type Antibody Screen Crossmatch Quality Measures - VTE Contraindication to Pharmacological VTE Prophylaxis: High Risk of Bleeding Specialty Discharge - Follow Up or Referrals ITrina Dale, MD, personally performed the services described in this documentation, ascribed by Maria Del Carmen Huston RN in my presence, and it is both accurate and complete [id number] .
[2017-02-22] MEDS: ATORVASTATIN 40 MG TABLET PO SCH (21:08)
[2017-02-23 05:31] LABS: Basophils % 0.3 % (0.0-0.8); Eosinophils # 0.4 10*3/uL (0.0-0.87); Eosinophils % 3.4 % (0.00-10.9); Hematocrit 25.7 VOL% (35.7-47.0); Immature Granulocytes % 0.9 %; Lymphocytes # 2.5 10*3/uL (1.4-4.0); Lymphocytes % 23.1 % (21.3-54.2); Mean Corpuscular HGB Conc 31.1 GM/DL (32-36); Mean Corpuscular Hemoglobin 27 PG (27-34); Mean Corpuscular Volume 87.4 FL (87-102); Mean Platelet Volume 9.1 FL (9.6-12.0); Monocytes # 1.1 10*3/uL (0.11-0.8); Monocytes % 10.3 % (1.7-12.7); Neutrophils # 6.6 10*3/uL (1.4-7.4); Platelet Count 297 T/CUMM (130-400); Red Blood Count 2.94 MC/CUMM (3.8-5.5); Red Cell Distribution Width 14.9 % (9.3-17.3); White Blood Count 10.7 T/CUMM (4-12)
[2017-02-23] MEDS: NITROGLYCERIN 2% OINT 1 INCH/GM PACK TOP SCH ×3 (06:11→17:52)
[2017-02-23] MEDS: HYDROmorphone PCA 30 MG/30 ML SYRINGE IV SCH ×2 (06:12→12:31)
[2017-02-23] MEDS: INSULIN LISPRO 100 UNIT/ML SUBCUT SCH ×2 (08:10→17:52)
[2017-02-23] MEDS ORDERED: BUPIVACAINE 0.25% NERVEBLOCK SCH (08:10)
[2017-02-23] MEDS ORDERED: BUPIVACAINE 0.25% 50 ML VIAL NERVEBLOCK PRN (08:18)
--- NOTE | 2017-02-23 09:16 | Event Note ---
Vital signs stable pain control is adequate. Ms. Fonseca will dialyze today and I will change her dressing tomorrow
[2017-02-23] MEDS: METOPROLOL TARTRATE 25 MG TABLET PO SCH ×2 (12:30→20:56)
[2017-02-23] MEDS: SODIUM BICARBONATE 650 MG TABLET PO SCH ×3 (12:30→20:55)
[2017-02-23] MEDS: amLODIPine 2.5 MG TABLET PO SCH ×2 (12:30→20:56)
[2017-02-23] MEDS: CILOSTAZOL 50 MG TABLET PO SCH ×2 (12:30→20:55)
[2017-02-23] MEDS: hydrALAZINE 25 MG TABLET PO SCH ×3 (12:30→20:55)
--- NOTE | 2017-02-23 14:23 | Hospitalist Progress Note ---
Assessment and Plan (1) Diabetes mellitus Status: Chronic Current Visit: Yes Qualifiers: Diabetes mellitus type: type 2 Diabetes mellitus complication status: with kidney complications Chronic kidney disease stage: on chronic dialysis (2) Hypertension Status: Chronic Current Visit: No Qualifiers: Hypertension type: essential hypertension Qualified Code(s): I10 - Essential (primary) hypertension (3) ESRD (end stage renal disease) on dialysis Problem details: No acute indication for HD at this time. Status: Chronic Current Visit: No (4) PAD (peripheral artery disease) Status: Chronic Current Visit: No Hospitalist: Subjective Interval history: No acute events overnight. Pain controlled. FSGs ok. Leukocytosis resolved. H/H down a little. Exam - Constitutional Vitals: Period Temp Pulse Resp BP Sys/Palma Pulse Ox Last 24 Hr 98.6 F-99.7 F 78-84 17-19 134-145/73-83 95-99 General appearance: over weight - Head Head exam: Present: normocephalic, atraumatic - Eye Eye exam: Present: EOMI Pupils: Present: KRISTOPHER - ENT ENT exam: Present: normal exam - Neck Neck exam: Present: normal inspection - Respiratory Respiratory exam: Present: clear to auscultation bilaterally. Absent: rhonchi, wheezes - Cardiovascular Cardiovascular exam: Present: regular rate and rhythm - GI/Abdominal GI/Abdominal exam: Present: normal bowel sounds, soft. Absent: tenderness, rebound - Extremities Exam Extremities exam: Present: other (bka) - Back Exam Back exam: Present: normal inspection - Neurological Exam Neurological exam: Present: alert, oriented X3 - Psychiatric Psychiatric exam: Present: normal affect, normal mood - Skin Skin exam: Present: warm, intact Results - Labs CBC & BMP: 02/23/17 05:11 02/21/17 05:34 Quality Measures - VTE Contraindication to Pharmacological VTE Prophylaxis: High Risk of Bleeding Specialty Discharge - Follow Up or Referrals
[2017-02-23] MEDS: CLOPIDOGREL 75 MG TABLET PO SCH (14:59)
[2017-02-23] MEDS: FAMOTIDINE 20 MG TABLET PO SCH (14:59)
[2017-02-23] MEDS: ASPIRIN EC 81 MG TABLET PO SCH (14:59)
[2017-02-23] MEDS: ATORVASTATIN 40 MG TABLET PO SCH (20:55)
--- NOTE | 2017-02-23 21:00 | Cardiology Progress Note ---
I, Maria Del Carmen Huston RN, am scribing for, and in the presence of, Kelechi Mena MD 21:00. Assessment and Plan (1) Status post insertion of drug eluting coronary artery stent Status: Acute Assessment and plan: Initial assessment 02/20/17 Heart rate is better. Plan/recommendation: Agree with getting back on the dual antiplatelet therapy,, ,DAPT, low-dose aspirin and the clopidogrel, given the recent coronary artery stent. 02/21/2017:Assessment/plan/recommendation: No angina. Hematocrit is low, so she is being given 2 units of blood. Had some epistaxis. The nurse and I conferred care and we are to leave her off the oxygen. It probably is just some irritation from the oxygen in addition to her being on the DAP T. Will order some Vaseline to the nose as needed for more epistaxis. 02/22/2017: Assessment/plan/recommendation:After 2 units of blood, recheck of CBC revealed that it is up to about 26 mg percent. Will recheck CBC in a.m. to ensure she does not continue to have loss of blood. Otherwise no angina. She is doing well back on her aspirin and Plavix. 02/23/2017: Assessment/plan/recommendation: No chest pain or shortness of breath. Hematocrit is now about 25%. No angina. Continue aspirin and Plavix for now. Current Visit: Yes (2) Cardiomyopathy Status: Chronic Current Visit: Yes (3) Diabetic infection of left foot Status: Acute Current Visit: Yes (4) ESRD on hemodialysis Status: Chronic Current Visit: Yes (5) Hypertension Status: Chronic Current Visit: Yes (6) Diabetes mellitus Status: Chronic Current Visit: Yes Qualifiers: Diabetes mellitus type: type 2 Diabetes mellitus complication status: with kidney complications Chronic kidney disease stage: on chronic dialysis (7) CAD (coronary artery disease) Status: Chronic Current Visit: Yes (8) Status post below knee amputation of left lower extremity Status: Acute Current Visit: Yes Cardiology - PN: 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 Fonseca is seen resting in bed in no acute distress. She had drug-eluting stent to ostial LAD February 16 of this year. She is day 3 status post left BKA, dressing noted to left stump. Oxygen use via nasal biprong. She denies chest pain, shortness of breath, palpitations, or dizziness. She is back on her Plavix and aspirin. Vital signs have been stable throughout the night. She was given 2 units of blood while on dialysis Monday. Her H&H yesterday had improved to 8.8 and 27.9, this morning is back down just a little bit to 8.0 and 25.7. She is scheduled for dialysis today. Exam (Progress Note) - Constitutional Vitals: Period Temp Pulse Resp BP Sys/Palma Pulse Ox Last 24 Hr 98.6 F-99.7 F 78-84 17-19 134-145/73-91 95-99 General appearance: no acute distress - Head Head exam: Absent: abrasion, hematoma - Eye Eye exam: Absent: periorbital swelling, laceration to eyelids - Respiratory Respiratory exam: Present: clear to auscultation bilaterally, other (Oxygen via nasal biprong). Absent: accessory muscle use, chest wall tenderness - Cardiovascular Cardiovascular exam: Present: regular rate and rhythm. Absent: rubs - GI/Abdominal GI/Abdominal exam: Present: normal bowel sounds, soft. Absent: distended, tenderness - Extremities Exam Extremities exam: Present: other (Right BKA, dressing noted left AKA). Absent: edema - Neurological Exam Neurological exam: Present: alert, oriented X3 - Psychiatric Psychiatric exam: Present: flat affect - Skin Skin exam: Present: warm, dry Result/EKG - Labs CBC & BMP: 02/23/17 05:11 02/21/17 05:34 Lab Results: I have reviewed the past 24 hour labs Labs: Laboratory Results - last 24 hr 02/22/17 02/22/17 02/22/17 09:52 11:20 15:47 WBC 12.1 H RBC 3.15 L D Hgb 8.8 L D Hct 27.9 L MCV 88.6 MCH 28 MCHC 31.5 L RDW 14.7 Plt Count 274 MPV 8.7 L Neut % (Auto) 70.2 Lymph % (Auto) 16.3 L [place] % (Auto) 10.9 Eos % (Auto) 1.5 Baso % (Auto) 0.2 Neut # (Auto) 8.5 H Lymph # (Auto) 2.0 [place] # (Auto) 1.3 H Eos # (Auto) 0.2 Baso # (Auto) 0.0 Immature Gran % 0.9 Nucleated RBC % 0.0 Immature Gran # 0.11 Nucleated RBCs # 0.00 POC Glucose 153 H 201 H 02/22/17 02/22/17 02/23/17 19:38 23:48 03:34 WBC RBC Hgb Hct MCV MCH MCHC RDW Plt Count MPV Neut % (Auto) Lymph % (Auto) [place] % (Auto) Eos % (Auto) Baso % (Auto) Neut # (Auto) Lymph # (Auto) [place] # (Auto) Eos # (Auto) Baso # (Auto) Immature Gran % Nucleated RBC % Immature Gran # Nucleated RBCs # POC Glucose 75 84 75 02/23/17 05:11 WBC 10.7 RBC 2.94 L Hgb 8.0 L Hct 25.7 L MCV 87.4 MCH 27 MCHC 31.1 L RDW 14.9 Plt Count 297 MPV 9.1 L Neut % (Auto) 62.0 Lymph % (Auto) 23.1 [place] % (Auto) 10.3 Eos % (Auto) 3.4 Baso % (Auto) 0.3 Neut # (Auto) 6.6 Lymph # (Auto) 2.5 [place] # (Auto) 1.1 H Eos # (Auto) 0.4 Baso # (Auto) 0.0 Immature Gran % 0.9 Nucleated RBC % 0.0 Immature Gran # 0.10 Nucleated RBCs # 0.00 POC Glucose Quality Measures - VTE Contraindication to Pharmacological VTE Prophylaxis: High Risk of Bleeding Specialty Discharge - Follow Up or Referrals Trina Simmons Dale, MD, personally performed the services described in this documentation, ascribed by Maria Del Carmen Huston RN in my presence, and it is both accurate and complete .
[2017-02-24] MEDS: NITROGLYCERIN 2% OINT 1 INCH/GM PACK TOP SCH ×4 (00:11→17:27)
--- NOTE | 2017-02-24 08:21 | Nephrology Progress Note ---
Nephrology - PN: Subj Interval history: Ms. Fonseca is seen in follow-up of her end-stage renal disease. She is eating and is having no difficulty. Pain seems well controlled. Will plan to dialyze her tomorrow and ultimately she will be going for some tight rehab for further recovery. We will continue to support with inpatient or outpatient dialysis. Chest is clear and heart rhythm regular Exam (PN)-Nephrology - Vital Signs Vital signs: Period Temp Pulse Resp BP Sys/Palma Pulse Ox Last 24 Hr 98.2 F-100.0 F 81-93 17-19 132-172/68-77 18-97 - Lab 02/23/17 05:11 02/21/17 05:34 Most recent lab results Calcium 7.6 MG/DL (8.5-10.1) L 02/21/17 05:34 Magnesium 2.4 MG/DL (1.8-2.4) 02/20/17 03:12 Assessment and Plan (1) ESRD (end stage renal disease) on dialysis Problem details: No acute indication for HD at this time. Status: Chronic Assessment and plan: 3x weekly dialysis Current Visit: No Specialty Discharge - Follow Up or Referrals
--- NOTE | 2017-02-24 08:28 | Event Note ---
Mrs. 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 This appears to be healing there is a very slight amount of early ischemic change on the distal flap medially but overall I think the leg will heal. We are looking into finding a spot for her at time [facility] and she can go whenever that is available.
[2017-02-24] MEDS: CILOSTAZOL 50 MG TABLET PO SCH ×2 (09:25→20:02)
[2017-02-24] MEDS: SODIUM BICARBONATE 650 MG TABLET PO SCH ×3 (09:25→20:03)
[2017-02-24] MEDS: hydrALAZINE 25 MG TABLET PO SCH ×3 (09:25→20:03)
[2017-02-24] MEDS: INSULIN LISPRO 100 UNIT/ML SUBCUT SCH ×2 (09:26→16:51)
[2017-02-24] MEDS: CLOPIDOGREL 75 MG TABLET PO SCH (09:26)
[2017-02-24] MEDS: METOPROLOL TARTRATE 25 MG TABLET PO SCH ×2 (09:26→20:03)
[2017-02-24] MEDS: amLODIPine 2.5 MG TABLET PO SCH ×2 (09:26→20:03)
[2017-02-24] MEDS: ASPIRIN EC 81 MG TABLET PO SCH (09:26)
[2017-02-24] MEDS: FAMOTIDINE 20 MG TABLET PO SCH (09:26)
[2017-02-24] MEDS: DESITIN 4OZ/NYSTATIN 15 GRAM MIXTURE PASTE TOP SCH ×2 (13:41→20:10)
[2017-02-24] MEDS: HYDROmorphone PCA 30 MG/30 ML SYRINGE IV SCH (15:21)
--- NOTE | 2017-02-24 15:41 | Hospitalist Progress Note ---
Assessment and Plan (1) Diabetes mellitus Status: Chronic Current Visit: Yes Qualifiers: Diabetes mellitus type: type 2 Diabetes mellitus complication status: with kidney complications Chronic kidney disease stage: on chronic dialysis (2) Hypertension Status: Chronic Current Visit: No Qualifiers: Hypertension type: essential hypertension Qualified Code(s): I10 - Essential (primary) hypertension (3) ESRD (end stage renal disease) on dialysis Problem details: No acute indication for HD at this time. Status: Chronic Current Visit: No (4) PAD (peripheral artery disease) Status: Chronic Current Visit: No Hospitalist: Subjective Interval history: No acute events overnight. FSGs remain acceptable for inpatient with lispro ssi. No changes today. Exam - Constitutional Vitals: Period Temp Pulse Resp BP Sys/Palma Pulse Ox Last 24 Hr 98.2 F-99.7 F 79-93 16-19 132-150/68-75 91-97 General appearance: over weight - Head Head exam: Present: normocephalic, atraumatic - Eye Eye exam: Present: EOMI Pupils: Present: KRISTOPHER - ENT ENT exam: Present: normal exam - Neck Neck exam: Present: normal inspection - Respiratory Respiratory exam: Present: clear to auscultation bilaterally. Absent: rhonchi, wheezes - Cardiovascular Cardiovascular exam: Present: regular rate and rhythm - GI/Abdominal GI/Abdominal exam: Present: normal bowel sounds, soft (bka) - Back Exam Back exam: Present: normal inspection - Neurological Exam Neurological exam: Present: alert, oriented X3 - Psychiatric Psychiatric exam: Present: normal affect, normal mood - Skin Skin exam: Present: warm, intact Results - Labs CBC & BMP: 02/23/17 05:11 02/21/17 05:34 Quality Measures - VTE Contraindication to Pharmacological VTE Prophylaxis: High Risk of Bleeding Specialty Discharge - Follow Up or Referrals
[2017-02-24] MEDS: ATORVASTATIN 40 MG TABLET PO SCH (20:03)
--- NOTE | 2017-02-24 20:18 | Cardiology Progress Note ---
I, Hilda Jacobsen RN, am scribing for, and in the presence of, Kelechi Mena MD 20:18. Assessment and Plan - Time spent with patient Time spent with patient: Greater than 30 minutes (1) Status post insertion of drug eluting coronary artery stent Status: Acute Assessment and plan: Initial assessment 02/20/17 Heart rate is better. Plan/recommendation: Agree with getting back on the dual antiplatelet therapy,, ,DAPT, low-dose aspirin and the clopidogrel, given the recent coronary artery stent. 02/21/2017:Assessment/plan/recommendation: No angina. Hematocrit is low, so she is being given 2 units of blood. Had some epistaxis. The nurse and I conferred care and we are to leave her off the oxygen. It probably is just some irritation from the oxygen in addition to her being on the DAP T. Will order some Vaseline to the nose as needed for more epistaxis. 02/22/2017: Assessment/plan/recommendation:After 2 units of blood, recheck of CBC revealed that it is up to about 26 mg percent. Will recheck CBC in a.m. to ensure she does not continue to have loss of blood. Otherwise no angina. She is doing well back on her aspirin and Plavix. 02/23/2017: Assessment/plan/recommendation: No chest pain or shortness of breath. Hematocrit is now about 25%. No angina. Continue aspirin and Plavix for now. 02/24/2017: Assessment/plan/recommendation: No chest pain or shortness of breath. He is tearful after some cleaning of her stump. Apparently it continues to hurt. I conferred care with her nurse about getting adequate pain medication. I discussed with the patient about treatment for depression. He declines. We can reconsider it later. Current Visit: Yes (2) Diabetic infection of left foot Status: Acute Current Visit: Yes (3) Status post below knee amputation of left lower extremity Status: Acute Current Visit: Yes (4) CAD (coronary artery disease) Status: Chronic Current Visit: Yes (5) Cardiomyopathy Status: Chronic Current Visit: Yes (6) Diabetes mellitus Status: Chronic Current Visit: Yes Qualifiers: Diabetes mellitus type: type 2 Diabetes mellitus complication status: with kidney complications Chronic kidney disease stage: on chronic dialysis (7) ESRD on hemodialysis Status: Chronic Current Visit: Yes (8) Hypertension Status: Chronic Current Visit: Yes Cardiology - PN: Subj Interval history: PRIMARY [employer] TECH: DR. NATACHA HERRON POD #4 status post left BKA. Surgical pain overall well controlled. Awake and alert. NAD noted. Denies CP, SOB. Slightly febrile yesterday evening, max 100.0F. Improved at 98.4 today. BP slightly elevated no greater than SBP 172 mmHg. She is to be discharged soon to [facility] rehab. Exam (Progress Note) - Constitutional Vitals: Period Temp Pulse Resp BP Sys/Palma Pulse Ox Last 24 Hr 98.2 F-100.0 F 81-93 17-19 132-172/68-77 18-97 Exam: General appearance: no acute distress - Head Head exam: Absent: abrasion, hematoma - Eye Eye exam: Absent: periorbital swelling, laceration to eyelids - Respiratory Respiratory exam: Present: clear to auscultation bilaterally, other (Oxygen via nasal biprong). Absent: accessory muscle use, chest wall tenderness - Cardiovascular Cardiovascular exam: Present: regular rate and rhythm. Absent: rubs - GI/Abdominal GI/Abdominal exam: Present: normal bowel sounds, soft. Absent: distended, tenderness - Extremities Exam Extremities exam: Present: other (Right BKA, dressing noted left AKA). Absent: edema - Neurological Exam Neurological exam: Present: alert, oriented X3 - Psychiatric Psychiatric exam: Present: flat affect - Skin Skin exam: Present: warm, dry Result/EKG - Labs CBC & BMP: 02/23/17 05:11 02/21/17 05:34 Lab Results: I have reviewed the past 24 hour labs Labs: Laboratory Results - last 24 hr 02/23/17 02/23/17 02/24/17 15:49 20:05 00:43 POC Glucose 144 H 171 H 121 H 02/24/17 02/24/17 05:26 06:57 POC Glucose 102 94 - EKG EKG results: interpreted by me, no acute changes Quality Measures - VTE Contraindication to Pharmacological VTE Prophylaxis: High Risk of Bleeding Specialty Discharge - Follow Up or Referrals ITrina Dale, MD, personally performed the services described in this documentation, ascribed by Hilda Jacobsen RN in my presence, and it is both accurate and complete .
[2017-02-25] MEDS: NITROGLYCERIN 2% OINT 1 INCH/GM PACK TOP SCH ×4 (01:32→19:02)
[2017-02-25] MEDS: INSULIN LISPRO 100 UNIT/ML SUBCUT SCH ×2 (07:47→18:53)
--- NOTE | 2017-02-25 08:24 | Event Note ---
02/25/2017 Patient is having a large amount of discomfort especially with manipulation of the wound and the leg. Incision looks pretty clean and dry there may be still continued drainage a little ischemic changes medially as described yesterday. Everything appears to be stable except for good bit of pain and discomfort.
[2017-02-25] MEDS: ASPIRIN EC 81 MG TABLET PO SCH (09:34)
[2017-02-25] MEDS: CILOSTAZOL 50 MG TABLET PO SCH ×2 (09:34→20:54)
[2017-02-25] MEDS: SODIUM BICARBONATE 650 MG TABLET PO SCH ×3 (09:34→20:54)
[2017-02-25] MEDS: FAMOTIDINE 20 MG TABLET PO SCH (09:35)
[2017-02-25] MEDS: hydrALAZINE 25 MG TABLET PO SCH ×3 (09:35→20:54)
[2017-02-25] MEDS: METOPROLOL TARTRATE 25 MG TABLET PO SCH ×2 (09:37→20:54)
[2017-02-25] MEDS: amLODIPine 2.5 MG TABLET PO SCH ×2 (09:37→20:54)
[2017-02-25] MEDS: CLOPIDOGREL 75 MG TABLET PO SCH (09:37)
[2017-02-25] MEDS: DESITIN 4OZ/NYSTATIN 15 GRAM MIXTURE PASTE TOP SCH ×2 (09:38→20:54)
--- NOTE | 2017-02-25 11:59 | Hospitalist Progress Note ---
Assessment and Plan (1) Diabetic infection of left foot Status: Acute Current Visit: Yes (2) CAD (coronary artery disease) Status: Chronic Current Visit: Yes (3) Cardiomyopathy Status: Chronic Current Visit: Yes (4) Diabetes mellitus Status: Chronic Current Visit: Yes Qualifiers: Diabetes mellitus type: type 2 Diabetes mellitus complication status: with kidney complications Chronic kidney disease stage: on chronic dialysis (5) ESRD on hemodialysis Status: Chronic Current Visit: Yes (6) Hypertension Status: Chronic Current Visit: Yes Qualifiers: Hypertension type: essential hypertension Qualified Code(s): I10 - Essential (primary) hypertension Hospitalist: Subjective Interval history: The patient is resting comfortably she is at dialysis and tolerated the procedure. Her glucoses have been doing acceptable range of 106-110. No other acute changes. Hemodynamics have been stable. Exam - Constitutional Vitals: Period Temp Pulse Resp BP Sys/Palma Pulse Ox Last 24 Hr 98.7 F-99.1 F 83-89 17-20 132-156/69-79 90-94 General appearance: normal weight - Head Head exam: Present: normal inspection - Respiratory Respiratory exam: Present: clear to auscultation bilaterally - Cardiovascular Cardiovascular exam: Present: regular rate and rhythm - GI/Abdominal GI/Abdominal exam: Present: normal bowel sounds - Neurological Exam Neurological exam: Present: alert, oriented X3 - Psychiatric Psychiatric exam: Present: normal affect, normal mood Results - Labs CBC & BMP: 02/23/17 05:11 02/21/17 05:34 Quality Measures - VTE Contraindication to Pharmacological VTE Prophylaxis: High Risk of Bleeding Specialty Discharge - Follow Up or Referrals
--- NOTE | 2017-02-25 16:55 | Cardiology Progress Note ---
Assessment and Plan (1) Status post insertion of drug eluting coronary artery stent Status: Acute Assessment and plan: Initial assessment 02/20/17 Heart rate is better. Plan/recommendation: Agree with getting back on the dual antiplatelet therapy,, ,DAPT, low-dose aspirin and the clopidogrel, given the recent coronary artery stent. 02/21/2017:Assessment/plan/recommendation: No angina. Hematocrit is low, so she is being given 2 units of blood. Had some epistaxis. The nurse and I conferred care and we are to leave her off the oxygen. It probably is just some irritation from the oxygen in addition to her being on the DAP T. Will order some Vaseline to the nose as needed for more epistaxis. 02/22/2017: Assessment/plan/recommendation:After 2 units of blood, recheck of CBC revealed that it is up to about 26 mg percent. Will recheck CBC in a.m. to ensure she does not continue to have loss of blood. Otherwise no angina. She is doing well back on her aspirin and Plavix. 02/23/2017: Assessment/plan/recommendation: No chest pain or shortness of breath. Hematocrit is now about 25%. No angina. Continue aspirin and Plavix for now. 02/24/2017: Assessment/plan/recommendation: No chest pain or shortness of breath. He is tearful after some cleaning of her stump. Apparently it continues to hurt. I conferred care with her nurse about getting adequate pain medication. I discussed with the patient about treatment for depression. He declines. We can reconsider it later. 02/25/17: Assessment/plan/recommendation: No angina. Less pain at stump. Getting dialysis today. Seems more upbeat today. Continue current therapy. Doing well on aspirin and clopidogrel. Current Visit: Yes (2) Diabetic infection of left foot Status: Acute Current Visit: Yes (3) Status post below knee amputation of left lower extremity Status: Acute Current Visit: Yes (4) CAD (coronary artery disease) Status: Chronic Current Visit: Yes (5) Cardiomyopathy Status: Chronic Current Visit: Yes (6) Diabetes mellitus Status: Chronic Current Visit: Yes Qualifiers: Diabetes mellitus type: type 2 Diabetes mellitus complication status: with kidney complications Chronic kidney disease stage: on chronic dialysis (7) ESRD on hemodialysis Status: Chronic Current Visit: Yes (8) Hypertension Status: Chronic Current Visit: Yes Qualifiers: Hypertension type: essential hypertension Qualified Code(s): I10 - Essential (primary) hypertension Cardiology - PN: Subj Interval history: No chest pain or shortness of breath. Less pain at surgical site. Exam (Progress Note) - Constitutional Vitals: Period Temp Pulse Resp BP Sys/Palma Pulse Ox Last 24 Hr 98.5 F-99.1 F 83-89 18-20 132-156/68-79 90-94 Exam: General appearance: no acute distress - Head Head exam: Absent: abrasion, hematoma - Eye Eye exam: Absent: periorbital swelling, laceration to eyelids - Respiratory Respiratory exam: Present: clear to auscultation bilaterally, other (Oxygen via nasal biprong). Absent: accessory muscle use, chest wall tenderness - Cardiovascular Cardiovascular exam: Present: regular rate and rhythm. Absent: rubs - GI/Abdominal GI/Abdominal exam: Present: normal bowel sounds, soft. Absent: distended, tenderness - Extremities Exam Extremities exam: Present: other (Right BKA, dressing noted left AKA). Absent: edema - Neurological Exam Neurological exam: Present: alert, oriented X3 - Psychiatric Psychiatric exam: Present: flat affect - Skin Skin exam: Present: warm, dry Result/EKG - Labs CBC & BMP: 02/23/17 05:11 02/21/17 05:34 Lab Results: I have reviewed the past 24 hour labs Labs: Laboratory Results - last 24 hr 02/24/17 02/25/17 02/25/17 19:43 06:11 07:48 POC Glucose 166 H 95 103 02/25/17 16:00 POC Glucose 147 H Quality Measures - VTE Contraindication to Pharmacological VTE Prophylaxis: High Risk of Bleeding Specialty Discharge - Follow Up or Referrals
[2017-02-25] MEDS: ATORVASTATIN 40 MG TABLET PO SCH (20:54)
[2017-02-26] MEDS: NITROGLYCERIN 2% OINT 1 INCH/GM PACK TOP SCH ×2 (00:07→06:05)
[2017-02-26] MEDS: INSULIN LISPRO 100 UNIT/ML SUBCUT SCH ×2 (09:30→18:52)
[2017-02-26] MEDS: SODIUM BICARBONATE 650 MG TABLET PO SCH ×3 (10:11→20:27)
[2017-02-26] MEDS: hydrALAZINE 25 MG TABLET PO SCH ×3 (10:12→20:45)
--- NOTE | 2017-02-26 10:13 | Nephrology Progress Note ---
Nephrology - PN: Subj Interval history: Ms. Fonseca is seen in follow-up of her end-stage renal disease. She is cheerful today and in no distress. She is able to breathe comfortably. Her chest is clear. Plan is to continue to support with hemodialysis. I am not sure how much support she has at home as far as recovering there. She says that she has siblings live in the same house but that they work outside the home. Exam (PN)-Nephrology - Vital Signs Vital signs: Period Temp Pulse Resp BP Sys/Palma Pulse Ox Last 24 Hr 97.4 F-99.1 F 79-87 18-18 138-152/62-85 91-99 - Lab 02/23/17 05:11 02/21/17 05:34 Most recent lab results Calcium 7.6 MG/DL (8.5-10.1) L 02/21/17 05:34 Magnesium 2.4 MG/DL (1.8-2.4) 02/20/17 03:12 Assessment and Plan (1) ESRD (end stage renal disease) on dialysis Problem details: No acute indication for HD at this time. Status: Chronic Assessment and plan: 3x weekly dialysis Current Visit: No Specialty Discharge - Follow Up or Referrals
[2017-02-26] MEDS: CILOSTAZOL 50 MG TABLET PO SCH ×2 (10:15→20:46)
[2017-02-26] MEDS: METOPROLOL TARTRATE 25 MG TABLET PO SCH ×2 (10:16→20:28)
[2017-02-26] MEDS: ASPIRIN EC 81 MG TABLET PO SCH (10:16)
[2017-02-26] MEDS: FAMOTIDINE 20 MG TABLET PO SCH (10:16)
[2017-02-26] MEDS: amLODIPine 2.5 MG TABLET PO SCH ×2 (10:17→20:30)
[2017-02-26] MEDS: CLOPIDOGREL 75 MG TABLET PO SCH (10:17)
--- NOTE | 2017-02-26 11:01 | Event Note ---
02/26/2017. Patient is doing well with a moderate amount of pain and discomfort. Did not change dressing today since it looked stable yesterday.
[2017-02-26] MEDS ORDERED: HYDROmorphone 2 MG/1 ML VIAL IV PRN (11:02)
--- NOTE | 2017-02-26 11:12 | Hospitalist Progress Note ---
Assessment and Plan (1) Diabetic infection of left foot Status: Acute Current Visit: Yes (2) CAD (coronary artery disease) Status: Chronic Current Visit: Yes (3) Cardiomyopathy Status: Chronic Current Visit: Yes (4) Diabetes mellitus Status: Chronic Current Visit: Yes Qualifiers: Diabetes mellitus type: type 2 Diabetes mellitus complication status: with kidney complications Chronic kidney disease stage: on chronic dialysis (5) ESRD on hemodialysis Status: Chronic Current Visit: Yes (6) Hypertension Status: Chronic Current Visit: Yes Qualifiers: Hypertension type: essential hypertension Qualified Code(s): I10 - Essential (primary) hypertension Hospitalist: Subjective Interval history: Patient is resting comfortably no acute changes. Tolerated dialysis on yesterday. Sugars have been acceptable. Exam - Constitutional Vitals: Period Temp Pulse Resp BP Sys/Palma Pulse Ox Last 24 Hr 97.4 F-99.1 F 79-87 18-18 138-152/62-85 91-99 General appearance: normal weight - Head Head exam: Present: normal inspection - ENT ENT exam: Present: normal exam - Respiratory Respiratory exam: Present: clear to auscultation bilaterally - Cardiovascular Cardiovascular exam: Present: regular rate and rhythm - GI/Abdominal GI/Abdominal exam: Present: normal bowel sounds - Neurological Exam Neurological exam: Present: alert, oriented X3 - Psychiatric Psychiatric exam: Present: normal affect, normal mood Results - Labs CBC & BMP: 02/23/17 05:11 02/21/17 05:34 Quality Measures - VTE Contraindication to Pharmacological VTE Prophylaxis: High Risk of Bleeding Specialty Discharge - Follow Up or Referrals
[2017-02-26] MEDS: DESITIN 4OZ/NYSTATIN 15 GRAM MIXTURE PASTE TOP SCH ×2 (13:35→20:50)
--- NOTE | 2017-02-26 20:19 | Cardiology Progress Note ---
Assessment and Plan (1) Status post insertion of drug eluting coronary artery stent Status: Acute Assessment and plan: Initial assessment 02/20/17 Heart rate is better. Plan/recommendation: Agree with getting back on the dual antiplatelet therapy,, ,DAPT, low-dose aspirin and the clopidogrel, given the recent coronary artery stent. 02/21/2017:Assessment/plan/recommendation: No angina. Hematocrit is low, so she is being given 2 units of blood. Had some epistaxis. The nurse and I conferred care and we are to leave her off the oxygen. It probably is just some irritation from the oxygen in addition to her being on the DAP T. Will order some Vaseline to the nose as needed for more epistaxis. 02/22/2017: Assessment/plan/recommendation:After 2 units of blood, recheck of CBC revealed that it is up to about 26 mg percent. Will recheck CBC in a.m. to ensure she does not continue to have loss of blood. Otherwise no angina. She is doing well back on her aspirin and Plavix. 02/23/2017: Assessment/plan/recommendation: No chest pain or shortness of breath. Hematocrit is now about 25%. No angina. Continue aspirin and Plavix for now. 02/24/2017: Assessment/plan/recommendation: No chest pain or shortness of breath. He is tearful after some cleaning of her stump. Apparently it continues to hurt. I conferred care with her nurse about getting adequate pain medication. I discussed with the patient about treatment for depression. He declines. We can reconsider it later. 02/25/17: Assessment/plan/recommendation: No angina. Less pain at stump. Getting dialysis today. Seems more upbeat today. Continue current therapy. Doing well on aspirin and clopidogrel. 02/26/17: Assessment/plan/recommendation: No angina. Less pain in his stump. Will discontinue the Nitropaste. It might cause a headache or hypotension. I conferred care with the nurse and gave her a phone order. Current Visit: Yes (2) Diabetic infection of left foot Status: Acute Current Visit: Yes (3) Status post below knee amputation of left lower extremity Status: Acute Current Visit: Yes (4) CAD (coronary artery disease) Status: Chronic Current Visit: Yes (5) Cardiomyopathy Status: Chronic Current Visit: Yes (6) Diabetes mellitus Status: Chronic Current Visit: Yes Qualifiers: Diabetes mellitus type: type 2 Diabetes mellitus complication status: with kidney complications Chronic kidney disease stage: on chronic dialysis (7) ESRD on hemodialysis Status: Chronic Current Visit: Yes (8) Hypertension Status: Chronic Current Visit: Yes Qualifiers: Hypertension type: essential hypertension Qualified Code(s): I10 - Essential (primary) hypertension Cardiology - PN: Subj Interval history: No chest pain or shortness of breath. Exam (Progress Note) - Constitutional Vitals: Period Temp Pulse Resp BP Sys/Palma Pulse Ox Last 24 Hr 97.4 F-99.1 F 79-87 18-19 121-152/62-80 92-99 Exam: General appearance: no acute distress - Head Head exam: Absent: abrasion, hematoma - Eye Eye exam: Absent: periorbital swelling, laceration to eyelids - Respiratory Respiratory exam: Present: clear to auscultation bilaterally, other (Oxygen via nasal biprong). Absent: accessory muscle use, chest wall tenderness - Cardiovascular Cardiovascular exam: Present: regular rate and rhythm. Absent: rubs - GI/Abdominal GI/Abdominal exam: Present: normal bowel sounds, soft. Absent: distended, tenderness - Extremities Exam Extremities exam: Present: other (Right BKA, dressing noted left AKA). Absent: edema - Neurological Exam Neurological exam: Present: alert, oriented X3 - Psychiatric Psychiatric exam: Present: flat affect - Skin Skin exam: Present: warm, dry Result/EKG - Labs CBC & BMP: 02/23/17 05:11 02/21/17 05:34 Lab Results: I have reviewed the past 24 hour labs Labs: Laboratory Results - last 24 hr 02/25/17 02/26/17 02/26/17 23:53 06:04 07:10 POC Glucose 129 H 111 H 106 02/26/17 02/26/17 12:22 16:21 POC Glucose 136 H 129 H Quality Measures - VTE Contraindication to Pharmacological VTE Prophylaxis: High Risk of Bleeding Specialty Discharge - Follow Up or Referrals
[2017-02-26] MEDS: ATORVASTATIN 40 MG TABLET PO SCH (20:45)
[2017-02-26] MEDS: ONDANSETRON 4 MG/2 ML VIAL IV PRN (23:45)
[2017-02-27 05:27] LABS: Basophils # 0.1 10*3/uL (0.0-0.2); Basophils % 0.6 % (0.0-0.8); Eosinophils # 0.6 10*3/uL (0.0-0.87); Eosinophils % 6.4 % (0.00-10.9); Hematocrit 27.9 VOL% (35.7-47.0); Hemoglobin 8.9 GM/DL (12.0-16.0); Immature Granulocytes % 0.7 %; Immature Granulocytes Absolute 0.06 #; Lymphocytes # 2.6 10*3/uL (1.4-4.0); Lymphocytes % 28.7 % (21.3-54.2); Mean Corpuscular HGB Conc 31.9 GM/DL (32-36); Mean Corpuscular Hemoglobin 28 PG (27-34); Mean Corpuscular Volume 86.6 FL (87-102); Mean Platelet Volume 8.8 FL (9.6-12.0); Monocytes # 0.9 10*3/uL (0.11-0.8); Monocytes % 9.9 % (1.7-12.7); Neutrophils # 4.9 10*3/uL (1.4-7.4); Neutrophils % 53.7 % (38.7-73.9); Platelet Count 495 T/CUMM (130-400); Red Blood Count 3.22 MC/CUMM (3.8-5.5); Red Cell Distribution Width 14.7 % (9.3-17.3); White Blood Count 9.1 T/CUMM (4-12)
[2017-02-27 06:06] LABS: Calcium 7.6 MG/DL (8.5-10.1); Magnesium 2.2 MG/DL (1.8-2.4); Osmolality,Calculated 275.8 MOS/KG (273-304); Potassium 4.3 MMOL/L (3.5-5.1)
[2017-02-27] MEDS: INSULIN LISPRO 100 UNIT/ML SUBCUT SCH ×2 (08:54→17:21)
[2017-02-27] MEDS: CLOPIDOGREL 75 MG TABLET PO SCH (09:25)
[2017-02-27] MEDS: ASPIRIN EC 81 MG TABLET PO SCH (09:25)
[2017-02-27] MEDS: amLODIPine 2.5 MG TABLET PO SCH ×2 (09:25→20:50)
[2017-02-27] MEDS: hydrALAZINE 25 MG TABLET PO SCH ×3 (09:25→20:51)
[2017-02-27] MEDS: FAMOTIDINE 20 MG TABLET PO SCH (09:25)
[2017-02-27] MEDS: CILOSTAZOL 50 MG TABLET PO SCH ×2 (09:25→20:50)
[2017-02-27] MEDS: DESITIN 4OZ/NYSTATIN 15 GRAM MIXTURE PASTE TOP SCH ×2 (09:25→20:52)
[2017-02-27] MEDS: METOPROLOL TARTRATE 25 MG TABLET PO SCH ×2 (09:25→20:51)
[2017-02-27] MEDS: SODIUM BICARBONATE 650 MG TABLET PO SCH ×3 (09:26→20:50)
--- NOTE | 2017-02-27 09:44 | Nephrology Progress Note ---
Nephrology - PN: Subj Interval history: Ms. Fonseca is seen in follow-up of her end-stage renal disease. Her chest is clear. She dialyzed on Monday. She is status post left below-knee amputation and will be making plans for rehab and post hospital care. She was previously dialyzing at [facility] and we can do that again during her rehab if necessary. Exam (PN)-Nephrology - Vital Signs Vital signs: Period Temp Pulse Resp BP Sys/Palma Pulse Ox Last 24 Hr 97.6 F-98.5 F 78-88 18-20 121-155/75-86 97-98 - Lab 02/27/17 05:08 02/27/17 05:08 Most recent lab results Calcium 7.6 MG/DL (8.5-10.1) L 02/27/17 05:08 Magnesium 2.2 MG/DL (1.8-2.4) 02/27/17 05:08 Assessment and Plan (1) ESRD (end stage renal disease) on dialysis Problem details: No acute indication for HD at this time. Status: Chronic Assessment and plan: 3x weekly dialysis Current Visit: No Specialty Discharge - Follow Up or Referrals
--- NOTE | 2017-02-27 10:46 | Event Note ---
Ms. Fonseca is doing generally okay the leg is healing with no significant ischemia. No sign of infection. We can transfer her to [facility] to continue inpatient rehab at any time. I do not believe that she is a good candidate for outpatient rehab at this point.
--- NOTE | 2017-02-27 16:07 | Hospitalist Progress Note ---
Assessment and Plan (1) Diabetes mellitus Status: Chronic Current Visit: Yes Qualifiers: Diabetes mellitus type: type 2 Diabetes mellitus complication status: with kidney complications Chronic kidney disease stage: on chronic dialysis (2) Hypertension Status: Chronic Current Visit: No Qualifiers: Hypertension type: essential hypertension Qualified Code(s): I10 - Essential (primary) hypertension (3) ESRD (end stage renal disease) on dialysis Problem details: No acute indication for HD at this time. Status: Chronic Current Visit: No (4) PAD (peripheral artery disease) Status: Chronic Current Visit: No Hospitalist: Subjective Interval history: Patient doing well today. Waiting on rehab placement. Glucoses acceptable. Exam - Constitutional Vitals: Period Temp Pulse Resp BP Sys/Palma Pulse Ox Last 24 Hr 97.6 F-98.5 F 76-88 18-20 121-155/72-86 95-98 General appearance: over weight - Head Head exam: Present: normocephalic, atraumatic - Eye Eye exam: Present: EOMI Pupils: Present: KRISTOPHER - ENT ENT exam: Present: normal exam - Neck Neck exam: Present: normal inspection - Respiratory Respiratory exam: Present: clear to auscultation bilaterally. Absent: rhonchi, wheezes - Cardiovascular Cardiovascular exam: Present: regular rate and rhythm - GI/Abdominal GI/Abdominal exam: Present: normal bowel sounds, soft. Absent: tenderness, rebound - Extremities Exam Extremities exam: Present: other (bka) - Back Exam Back exam: Present: normal inspection - Neurological Exam Neurological exam: Present: alert - Psychiatric Psychiatric exam: Present: normal affect, normal mood - Skin Skin exam: Present: warm, intact Results - Labs CBC & BMP: 02/27/17 05:08 02/27/17 05:08 Quality Measures - VTE Contraindication to Pharmacological VTE Prophylaxis: High Risk of Bleeding Specialty Discharge - Follow Up or Referrals
[2017-02-27] MEDS: ATORVASTATIN 40 MG TABLET PO SCH (20:51)
[2017-02-28] MEDS: INSULIN LISPRO 100 UNIT/ML SUBCUT SCH ×2 (09:31→18:39)
--- NOTE | 2017-02-28 11:30 | Dialysis Note ---
Dialysis Note - Dialysis Note Ms. Fonseca is seen in follow-up of her end-stage renal disease and is seen during her hemodialysis. She is doing well no changes are made in her dialysis prescription. She will be continued on her regular dialysis schedule
[2017-02-28] MEDS: ASPIRIN EC 81 MG TABLET PO SCH (15:58)
[2017-02-28] MEDS: hydrALAZINE 25 MG TABLET PO SCH ×3 (15:58→20:58)
[2017-02-28] MEDS: amLODIPine 2.5 MG TABLET PO SCH ×2 (15:59→20:58)
[2017-02-28] MEDS: METOPROLOL TARTRATE 25 MG TABLET PO SCH ×2 (15:59→20:58)
[2017-02-28] MEDS: FAMOTIDINE 20 MG TABLET PO SCH (16:00)
[2017-02-28] MEDS: CLOPIDOGREL 75 MG TABLET PO SCH (16:02)
[2017-02-28] MEDS: DESITIN 4OZ/NYSTATIN 15 GRAM MIXTURE PASTE TOP SCH ×2 (16:02→20:59)
[2017-02-28] MEDS: CILOSTAZOL 50 MG TABLET PO SCH ×2 (16:02→20:58)
[2017-02-28] MEDS: SODIUM BICARBONATE 650 MG TABLET PO SCH ×3 (16:03→20:58)
--- NOTE | 2017-02-28 16:20 | Hospitalist Progress Note ---
Assessment and Plan (1) Diabetes mellitus Status: Chronic Current Visit: Yes Qualifiers: Diabetes mellitus type: type 2 Diabetes mellitus complication status: with kidney complications Chronic kidney disease stage: on chronic dialysis (2) Hypertension Status: Chronic Current Visit: No Qualifiers: Hypertension type: essential hypertension Qualified Code(s): I10 - Essential (primary) hypertension (3) ESRD (end stage renal disease) on dialysis Problem details: No acute indication for HD at this time. Status: Chronic Current Visit: No (4) PAD (peripheral artery disease) Status: Chronic Current Visit: No Hospitalist: Subjective Interval history: No acute events overnight. Pain is controlled. FSGs are acceptable. Continue lispro ssi. Exam - Constitutional Vitals: Period Temp Pulse Resp BP Sys/Palma Pulse Ox Last 24 Hr 98.3 F-99.0 F 80-88 18-20 137-145/68-80 95-97 General appearance: over weight - Head Head exam: Present: normocephalic, atraumatic - Eye Eye exam: Present: EOMI Pupils: Present: RKISTOPHER - ENT ENT exam: Present: normal exam - Neck Neck exam: Present: normal inspection - Respiratory Respiratory exam: Present: clear to auscultation bilaterally. Absent: rhonchi, wheezes - Cardiovascular Cardiovascular exam: Present: regular rate and rhythm - GI/Abdominal GI/Abdominal exam: Present: normal bowel sounds, soft. Absent: tenderness, rebound - Neurological Exam Neurological exam: Present: alert - Psychiatric Psychiatric exam: Present: normal affect, normal mood - Skin Skin exam: Present: warm, intact Results - Labs CBC & BMP: 02/27/17 05:08 02/27/17 05:08 Quality Measures - VTE Contraindication to Pharmacological VTE Prophylaxis: High Risk of Bleeding Specialty Discharge - Follow Up or Referrals
--- NOTE | 2017-02-28 17:20 | Event Note ---
Anna Fonseca stable but needs some inpatient rehab understand that today she will transferred [facility] tomorrow.
[2017-02-28] MEDS: ATORVASTATIN 40 MG TABLET PO SCH (20:58)
[2017-03-01] MEDS: INSULIN LISPRO 100 UNIT/ML SUBCUT SCH (08:38)
--- NOTE | 2017-03-01 08:45 | Nephrology Progress Note ---
Nephrology - PN: Subj Interval history: Ms. Fonseca is seen in follow-up of her end-stage renal disease. She is doing well post amputation and post stenting of her LAD. She is awaiting transfer to a rehab situation. Chest is clear and heart without rub or gallop. Will plan to dialyze her tomorrow to continue with Monday schedule thank Exam (PN)-Nephrology - Vital Signs Vital signs: Period Temp Pulse Resp BP Sys/Palma Pulse Ox Last 24 Hr 98.4 F-99.0 F 80-96 18-18 130-148/78-88 90-96 - Lab 02/27/17 05:08 02/27/17 05:08 Most recent lab results Calcium 7.6 MG/DL (8.5-10.1) L 02/27/17 05:08 Magnesium 2.2 MG/DL (1.8-2.4) 02/27/17 05:08 Assessment and Plan (1) ESRD (end stage renal disease) on dialysis Problem details: No acute indication for HD at this time. Status: Chronic Assessment and plan: 3x weekly dialysis Current Visit: No Specialty Discharge - Follow Up or Referrals
--- NOTE | 2017-03-01 09:08 | Event Note ---
Ms. Fonseca's BKA stump looks good there is a very small amount of ischemia on the medial aspect of the posterior flap but overall it appears that this will heal primarily. We are awaiting placement of inpatient rehabilitation somewhere I do not feel at all confident that she is safe to be discharged home until she can make reasonable transfer. It also appears that she is not working very hard to rehab.
[2017-03-01] MEDS: CILOSTAZOL 50 MG TABLET PO SCH (10:06)
[2017-03-01] MEDS: SODIUM BICARBONATE 650 MG TABLET PO SCH ×2 (10:06→14:32)
[2017-03-01] MEDS: METOPROLOL TARTRATE 25 MG TABLET PO SCH (10:06)
[2017-03-01] MEDS: hydrALAZINE 25 MG TABLET PO SCH ×2 (10:06→14:32)
[2017-03-01] MEDS: amLODIPine 2.5 MG TABLET PO SCH (10:22)
[2017-03-01] MEDS: CLOPIDOGREL 75 MG TABLET PO SCH (10:22)
[2017-03-01] MEDS: FAMOTIDINE 20 MG TABLET PO SCH (10:22)
[2017-03-01] MEDS: ASPIRIN EC 81 MG TABLET PO SCH (10:22)
[2017-03-01] MEDS: DESITIN 4OZ/NYSTATIN 15 GRAM MIXTURE PASTE TOP SCH (10:22)
--- NOTE | 2017-03-01 11:29 | Discharge Summary ---
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 She had been referred back to the [facility] and then came back here have been developed some cellulitis of the lower extremity associated with the foot. At that time she did agree to below-knee amputation and this has been carried out approximately a week ago. She has a healing left below-knee amputation site with a very small amount of ischemia on the posterior flap medially. This should heal primarily. She is undergoing hemodialysis and during her hospitalization here on the initial induction of anesthesia she had significant cardio bradycardia that she subsequently underwent cardiac catheterization and stenting of an LAD lesion and we then were able to proceed with her below-knee amputation. Ms. Fonseca is being transferred to [facility] to continue wound care diet dialysis and rehabilitation as I do not feel that she is safe to be discharged home for outpatient rehabilitation. I can continue to follow her there but will leave the skin tor at least 2 more weeks. Diagnosis - Discharge Diagnosis (1) Diabetic infection of left foot Status: Acute Specialty Discharge - Follow Up or Referrals Discharge Plan - Discharge Data Disposition: Disch/Xfer-Ip Rehab Fac Condition at Discharge: Guarded Discharge Diet: diabetic diet Activity: as per physical therapy Hygiene: no restrictions Weight Bearing at Discharge: other Driving: other Contact your physician if you experience:: fever over 101, Redness or swelling, Bleeding - Discharge Medications New Clopidogrel [Plavix] 75 mg PO DAILY tablet Dextrose 50% [D50] 25 gm IV PRN PRN #0 vial PRN Reason: Hypoglycemia with IV access HYDROcodone/ACETAMIN 7.5-325 [[place] 7.5-325] 1 tablet PO Q4H PRN #0 tablet PRN Reason: Pain Moderate (4-7) HYDROmorphone INJ [Dilaudid Inj] 0.5 mg IV Q3H PRN #0 vial PRN Reason: Pain Severe (8-10) Heparin Inj 2,000 unit IV .EA DIALYSIS PORT PRN #0 vial PRN Reason: DIALYSIS Insulin Lispro [HumaLOG] See Protocol SUBCUT BID W/MEALS unit Ondansetron Inj [Zofran Inj] 4 mg IV Q6H PRN #0 vial PRN Reason: Nausea/Vomiting Petrolatum [Vaseline] 1 applic TOP TID PRN #0 applic PRN Reason: Epistaxis Bisacodyl Tab [Dulcolax Tab] 10 mg PO DAILY PRN #0 tablet PRN Reason: Constipation Glucagon 1 mg IM PRN PRN #0 vial PRN Reason: Hypoglycemia w/o IV access Metoprolol Tartrate Tab [Lopressor Tab] 25 mg PO BID tablet Continue Sodium Bicarb Tab 1,300 mg PO TID Atorvastatin [Lipitor] 40 mg PO BEDTIME Famotidine Tab [Pepcid Tab] 20 mg PO BID tablet Aspirin EC Tab 81 mg PO DAILY tablet Cilostazol [Pletal] 50 mg PO BID tablet amLODIPine [Norvasc] 2.5 mg PO BID tablet hydrALAZINE TAB [Apresoline Tab] 25 mg PO TID tablet Discontinued Enoxaparin [Lovenox] 30 mg SUBCUT Q24H syringe Isosorbide Mononitrate [Imdur] 15 mg PO DAILY tablet - Follow Up or Referral Follow Up: Nick Alvares MD [Physician] - - Forms/Instructions Instructions: Left Heart Catheterization (DC), Heart Healthy Diet (GEN), Below the Knee Amputation (DC), Coronary Intravascular Stent Placement (DC) Exam - Constitutional Vitals: Period Temp Pulse Resp BP Sys/Palma Pulse Ox Last 24 Hr 98.4 F-99.0 F 80-96 18-18 130-148/78-88 90-96 Discharge Results Procedures and tests throughout hospitalization: Pending Orders 02/14/17 11:59 Red Blood Cells Leuko Red Routine Labs on day of discharge: Labs from last 24 hours 03/01/17 02/28/17 02/28/17 05:31 23:54 18:04 POC Glucose 84 96 138 H DS: Provider Date of admission: 02/14/17 11:20 Primary care physician: Kahlil Roman MD Attending physician on admission: Nick Alvares MD Consults: 02/14/17 11:20 Consult to Physician [CONS] Routine Comment: Consulting Provider: Cardiology - [facility] Consulting Provider Notified: Yes When should Consulting Provider be notified: Now Consult to Specialist Group: Cardiology Person Notified: mickie called Date Notified: 02/14/17 Time Notified: 11:47 Consult to Physician [CONS] Routine Comment: help with general medical care Consulting Provider: Consulting Provider Notified: Yes When should Consulting Provider be notified: Now Consult to Specialist Group: Hospitalist Person Notified: [email or web address] called Date Notified: 02/14/17 Time Notified: 12:02 02/14/17 11:23 Consult to Physician [CONS] Routine Comment: patient known to you Consulting Provider: Julien Whitlock Consulting Provider Notified: Yes When should Consulting Provider be notified: Now Person Notified: brandyn called Date Notified: 02/14/17 Time Notified: 12:05 02/14/17 12:40 Consult to Pastoral Services [CONS] Routine Comment: Pastoral Screen: Request Barrel Cutter Visit Pastoral Screen Source of Request: Patient 02/14/17 12:47 Consult to Pharmacy [CONS] Routine Reason for Pharmacy Consult: Adjust Meds Renal Funct 02/16/17 09:42 Consult to Cardiac Rehabilitation [CONS] Routine Reason for Cardiac Rehabilitation: Risk Factor Modification 02/20/17 10:28 Consult to Physical Therapy [CONS] Routine Reason for Physical Therapy: Evaluate and Treat 02/20/17 10:37 Consult to Pharmacy [CONS] Routine Reason for Pharmacy Consult: Adjust Meds Renal Funct 02/22/17 08:02 Consult to Case Mgmt/Social Srvs [CONS] Routine Reason for Case Mgmt/Social Srvs: Discharge Planning Rehab Discharging clinician: Nick Alvares MD
[2017-03-01 12:04] VITALS: BP 137/78
== END 2017-03-01 15:07 | DRG 617 ==
LOC: N.3E 10:29 → N.CC 02-15 12:06 → N.3E 02-18 16:45
PROVIDERS: ADMIT Surgery; ATTEND Surgery

== ENCOUNTER 2017-04-26 13:55 | Inpatient (IN) ==
[2017-04-26] MEDS ORDERED: ACETAMINOPHEN 325 MG TABLET PO PRN (16:53)
[2017-04-26] MEDS ORDERED: LACTULOSE 20 GM/30 ML UDCUP PO PRN (16:53)
[2017-04-26] MEDS ORDERED: DOCUSATE SODIUM 100 MG CAPSULE PO PRN (16:53)
[2017-04-26] MEDS ORDERED: DEXTROSE 50% 25 GM/50 ML VIAL IV PRN (16:53)
[2017-04-26] MEDS ORDERED: MORPHINE 2 MG/1 ML SYRINGE IV PRN (16:53)
[2017-04-26] MEDS ORDERED: GLUCAGON 1 MG VIAL IM PRN (16:53)
[2017-04-26] MEDS ORDERED: ONDANSETRON 4 MG/2 ML VIAL IV PRN (16:53)
[2017-04-26] MEDS ORDERED: ZALEPLON 5 MG CAPSULE PO PRN (16:53)
--- NOTE | 2017-04-26 16:57 | Hospitalist History & Physical ---
Assessment and Plan - Time spent with patient Time spent with patient: Greater than 30 minutes (35 minutes) (1) Pleural effusion Status: Acute Assessment and plan: Plans for thoracentesis per pulmonology. consult pulm. Check cell count, differential, gram stain, protein, glucose, cytology and pH. Check CXR. PT/PTT. Current Visit: No (2) Systolic and diastolic CHF, acute on chronic Status: Acute Assessment and plan: Needs home meds confirmed. Fluid mgt per HD. Check TSH. Current Visit: No (3) Tricuspid valve regurgitation Status: Acute Assessment and plan: See above. Current Visit: No (4) Hypertension Status: Chronic Assessment and plan: BP currently controlled. on Hydralazine, Norvasc and metoprolol reportedly. Hold BP meds for now and resume as clinically appropriate Current Visit: No Qualifiers: Hypertension type: essential hypertension Qualified Code(s): I10 - Essential (primary) hypertension (5) diabetic nonhealing ulcer s/p amputation Status: Acute Assessment and plan: Wound care to see. s/p recent debridement. Current Visit: Yes (6) Diabetes mellitus, insulin dependent (IDDM), uncontrolled Status: Chronic Assessment and plan: Insulin sliding scale and accuchecks ac,hs. ADA diet. Current Visit: No Qualifiers: Diabetes mellitus complication status: with kidney complications Diabetes mellitus complication detail: with chronic kidney disease Chronic kidney disease stage: stage 4 (severe) Qualified Code(s): E10.22 - Type 1 diabetes mellitus with diabetic chronic kidney disease; E10.65 - Type 1 diabetes mellitus with hyperglycemia; N18.4 - Chronic kidney disease, stage 4 (severe) (7) Dysphagia Status: Acute Assessment and plan: pt has history of subglottic edema and has been tolerating oral intake well. Will monitor. Speech consult if develops difficulty. Current Visit: No (8) Peripheral artery disease Problem details: diabetic/ischemic left toe ulceration and h/o small toe amputation Status: Chronic Assessment and plan: on ASA, Plavix and Statin and Pletal at home. Resume once home meds confirmed. Current Visit: No (9) Debility, unspecified Status: Acute Assessment and plan: PT/OT Current Visit: No (10) ESRD (end stage renal disease) on dialysis Problem details: No acute indication for HD at this time. Status: Chronic Assessment and plan: HD per renal Current Visit: No (11) CAD (coronary artery disease) Status: Chronic Assessment and plan: ASA, Plavix, statin, BB Current Visit: No (12) Status post below knee amputation of left lower extremity Status: Acute Current Visit: No History of Present Illness Chief complaint: Shortness of breath 3 days History of present illness: Ms. Fonseca is a 51 year old chronically ill female with a history of end-stage renal disease on hemodialysis Monday, chronic systolic and diastolic congestive heart failure, diabetes mellitus type 2, who presented to the hospital with 2-3 days of shortness of breath. Patient reports that she noticed that she had become more short of breath over the last 2-3 days. She did go to hemodialysis yesterday were approximately 1 L of fluid was removed. Her dry weight is 59 kg per nursing and after dialysis today charted 58 kg. She denies any chest pain. She did reports a dry cough. She does report some palpitations. She denies any nausea, vomiting, diarrhea or constipation. She denies any melena or bright red blood per rectum. She denies any changes with her urine output. She denies any dysuria or hematuria. Patient reportedly had a debridement on her nonhealing diabetic wounds on her stumps and incidently found she had bilateral pleural effusions and SOB. We were asked to admit as a direct admit for further evaluation and treatment for possible thoracentesis. Home Medications Medication Instructions Recorded Confirmed Type Atorvastatin [Lipitor] 40 mg PO BEDTIME 12/20/16 02/14/17 History Sodium Bicarb Tab 1,300 mg PO TID 12/20/16 02/14/17 History Cilostazol [Pletal] 50 mg PO BID tablet 01/06/17 02/14/17 Rx Famotidine Tab [Pepcid Tab] 20 mg PO BID tablet 01/06/17 02/14/17 Rx amLODIPine [Norvasc] 2.5 mg PO BID tablet 01/06/17 02/14/17 Rx hydrALAZINE TAB [Apresoline Tab] 25 mg PO TID tablet 01/06/17 02/14/17 Rx Aspirin EC Tab 81 mg PO DAILY tablet 01/11/17 02/14/17 Rx Bisacodyl Tab [Dulcolax Tab] 10 mg PO DAILY PRN #0 tablet 03/01/17 Rx Clopidogrel [Plavix] 75 mg PO DAILY tablet 03/01/17 Rx Dextrose 50% [D50] 25 gm IV PRN PRN #0 vial 03/01/17 Rx Glucagon 1 mg IM PRN PRN #0 vial 03/01/17 Rx HYDROcodone/ACETAMIN 7.5-325 1 tablet PO Q4H PRN #0 tablet 03/01/17 Rx [[place] 7.5-325] HYDROmorphone INJ [Dilaudid Inj] 0.5 mg IV Q3H PRN #0 vial 03/01/17 Rx Heparin Inj 2,000 unit IV .EA DIALYSIS PORT 03/01/17 Rx PRN #0 vial Insulin Lispro [HumaLOG] See Protocol SUBCUT BID W/MEALS 03/01/17 Rx unit Metoprolol Tartrate Tab [Lopressor 25 mg PO BID tablet 03/01/17 Rx Tab] Ondansetron Inj [Zofran Inj] 4 mg IV Q6H PRN #0 vial 03/01/17 Rx Petrolatum [Vaseline] 1 applic TOP TID PRN #0 applic 03/01/17 Rx Allergies Allergy/AdvReac Type Severity Reaction Status Date / Time No Known Allergies Allergy Unverified 11/11/16 13:00 Medical,Surgical,& Family Hx - Medical History Cardio: History of: CHF, Hypertension Psychological: No history of: Anxiety Disorders, ADHD, Behavior Problems, Bipolar Disorder, Depression, Previous Suicide Attempt, Psychiatric/Substance Abuse Tx, Schizophrenia, Violent Behavior, Psychiatric Problems Neurology: History of: Cerebral Hemorrhage (SDH (Jun 2015)), Cerebrovascular Accident (June 2015), Peripheral Neuropathy (SDH (06/16/15)), TIA No history of: Brain Aneurysm, Cerebral Palsy, Dementia, Migraine, Multiple Sclerosis, Parkinson's Disease, Seizures, Vertigo, Neurologocal Cancer HEENT: History of: Eye Problem (glaucoma), Glaucoma Endocrine: History of: Diabetes Mellitus (IDDM), Dyslipidemia Rheumatology: No history of;: Fibromyalgia, Gout, Rheumatological Problems Respiratory: No history of: Asthma, Bronchitis, COPD, Intubation, Obstructive Sleep Apnea , Pulmonary Embolism, Pulmonary Hypertension, Pneumonia, Lung Cancer, Respiratory Problems Renal: History of: Renal Failure, Renal Problems No history of: Renal (Kidney) Cancer, Dialysis Genitourinary: History of: Recurring Urinary Tract Infections Gastrointestinal: History of: GERD Musculoskeletal: History of: Amputation (right BKA) No history of: Back/Neck Problems, Degenerative Disk Disease, Herniated Disk , Osteoporosis, Musculoskeletal Cancer, Musculoskeletal Problems Hematology: History of: Anemia No history of: Blood Transfusion Reaction - Surgical History Cardiac Surgeries: Patient Denies: Cardiac Catheterization Thoracic Surgeries: Patient denies;: Organ Transplant, Lobectomy Neurologic Surgeries: Surgical HX of: Cerebral Hemorrhage (SDH (Jun 2015)), Neurologic Surgery Patient denies: Brain Aneurysm HEENT Surgeries: Surgical HX of: Tonsilectomy & Adenoidectomy Abdominal Surgeries: Surgical HX of: Appendectomy (in the remote past), Cholecystectomy Patient denies: Colonoscopy, EGD Reproductive Surgeries: Patient denies;: Breast Surgery, Genitourinary Surgery, Gynecologic Surgery - Family History Family History: Reports;: Family Cancer (mother), Family Diabetes (Parents and siblings.), Family Hypertension (PARENTS) - Social History Smoking Status: Former smoker Frequency of Alcohol Use: None Type of Drug Use: None Marital Status: Single Lives With:: Alone Functional capacity: wheelchair bound 12 point system: reviewed and no additional remarkable complaints except as stated Exam - Constitutional Vitals: Period Temp Pulse Resp BP Sys/Palma Pulse Ox Last 24 Hr 97.8 F 91 124/56 90-96 Exam: General : patient is awake alert and oriented 3 chronically ill-appearing sitting on the hospital bed in no acute distress HEENT exam reveals pupils are equal and reactive to light extraocular muscles are intact sclerae clear conjunctiva are slightly pale nares are patent no discharge or epistaxis noted oropharynx is clear with moist mucous membranes. Neck: Supple with a right subclavian tunnel catheter in place without any surrounding erythema or notable discharge. No lymphadenopathy or thyromegaly appreciated. No JVD Cardiovascular: Regular rate and rhythm, normal S1-S2. No obvious murmurs rubs or gallops Lungs: Clear to auscultation anteriorly, diminished at the bases with egophony. No rales appreciated. Nonlabored breathing noted Abdomen: Soft, nontender, nondistended, positive bowel sounds. No organomegaly or masses appreciated Extremity: Warm well perfused. Status post bilateral BKA. She has a stage II ulcer on her right stump 2 cm x 3 cm with no active drainage noted. She has a stage III ulcer on her left stump approximately 1.5 cm x 3cm without active drainage. No surrounding erythema noted. No significant tenderness to palpation appreciated. Neuro: Nonfocal
[2017-04-26] MEDS ORDERED: BISACODYL 5 MG TABLET PO PRN (17:22)
[2017-04-26] MEDS: PANTOPRAZOLE 40 MG TABLET PO SCH (17:30)
--- NOTE | 2017-04-26 17:39 | XRay Report ---
Portable chest. Indication: Shortness of breath. Comparison: March 01, 2017. A dual-lumen catheter is in place. The heart borders are not seen due to increasingly large bilateral pleural effusions. The pulmonary vasculature is prominent. The osseous structures are stable. Impression: Increasing bilateral pleural effusions and venous congestion. PROCEDURE INTERPRETED AT [facility] DEPARTMENT OF RADIOLOGY Final Report Signed by: Dr. Alessandra Barrera
[2017-04-26 18:29] LABS: Basophils # 0.1 10*3/uL (0.0-0.2); Basophils % 0.4 % (0.0-0.8); Eosinophils # 0.4 10*3/uL (0.0-0.87); Eosinophils % 3.2 % (0.00-10.9); Hemoglobin 8.2 GM/DL (12.0-16.0); Immature Granulocytes % 0.3 %; Immature Granulocytes Absolute 0.04 #; Lymphocytes # 2.2 10*3/uL (1.4-4.0); Lymphocytes % 17.6 % (21.3-54.2); Mean Corpuscular HGB Conc 30.4 GM/DL (32-36); Mean Corpuscular Hemoglobin 27 PG (27-34); Mean Corpuscular Volume 88.5 FL (87-102); Mean Platelet Volume 8.8 FL (9.6-12.0); Monocytes % 7.9 % (1.7-12.7); Neutrophils # 8.7 10*3/uL (1.4-7.4); Neutrophils % 70.6 % (38.7-73.9); Platelet Count 474 T/CUMM (130-400); Red Blood Count 3.05 MC/CUMM (3.8-5.5); Red Cell Distribution Width 15.2 % (9.3-17.3); White Blood Count 12.4 T/CUMM (4-12)
[2017-04-26 18:39] LABS: Calcium 8.6 MG/DL (8.5-10.1); Magnesium 2.1 MG/DL (1.8-2.4); Osmolality,Calculated 280.5 MOS/KG (273-304); Potassium 3.4 MMOL/L (3.5-5.1); Risk Ratio 4.13; Thyroid Stimulating Hormone 2.98 uIU/ml (0.358-3.74); VLDL CHOLESTEROL 22.2 MG/DL
[2017-04-26] MEDS: CILOSTAZOL 50 MG TABLET PO SCH (21:36)
[2017-04-26] MEDS: METOPROLOL TARTRATE 25 MG TABLET PO SCH (21:36)
[2017-04-26] MEDS: SODIUM BICARBONATE 650 MG TABLET PO SCH (21:36)
[2017-04-26] MEDS: ATORVASTATIN 40 MG TABLET PO SCH (21:36)
[2017-04-26] MEDS: INSULIN REGULAR 100 UNIT/ML SUBCUT SCH (21:37)
[2017-04-26] MEDS: INSULIN LISPRO 100 UNIT/ML SUBCUT SCH (22:10)
--- NOTE | 2017-04-27 07:20 | Hospitalist Progress Note ---
Assessment and Plan (1) Diabetes mellitus Status: Chronic Assessment and plan: Multiple organ injury with end-stage renal disease, bilateral amputation, and diffuse coronary atherosclerosis. Current Visit: No Qualifiers: Diabetes mellitus type: type 2 Diabetes mellitus complication status: with circulatory complication Diabetes mellitus complication detail: with other circulatory complications (2) CKD (chronic kidney disease) Status: Chronic Assessment and plan: Introduction of renal replacement therapy December 2016. Patient has progressive bilateral pleural effusions. With amputations dry body weight may not be an accurate reflection of her true volume status. In addition she has a reduced left ventricular systolic without aggressive afterload reduction combined with the use of Pletal. Current Visit: No (3) CAD (coronary artery disease) Status: Chronic Assessment and plan: Cardiac catheterization December 2016 showing diffuse coronary artery disease with medical management. Echocardiographic ejection fraction 30% catheterization ejection fraction 40-45%. Current Visit: No Hospitalist: Subjective Interval history: 51-year-old female diabetic hypertensive with history of 2015 subdural hematoma with associated vascular ischemic injury was placed 4 months ago on hemodialysis following extensive workup. At that time an echocardiogram suggested an ejection fraction of 30% associated with diffuse hypokinesia and no significant pulmonary hypertension. Cardiac catheterization was obtained demonstrating diffuse coronary artery disease with very small vessels suggestive of extensive endothelial involvement. She was not felt to be a candidate for revascularization and she was initiated on treatment. Her recorded catheterization ejection fraction is 40-45%. She reports no missed dialysis. She is on no formal afterload reduction and is taking Pletal due to severe peripheral vascular disease with bilateral lower extremity amputations after aggressive efforts at limb salvage. She was admitted for increasing shortness of breath with chest x-ray demonstrating progressive bilateral pleural effusions compared to the last study available in December 2016. She had a thoracentesis performed in 2016 which was characterized as transudative. There is been no fever chills cough or sputum production. Vital signs are stable overnight there has been no change in symptoms. Exam - Constitutional Vitals: Period Temp Pulse Resp BP Sys/Palma Pulse Ox Last 24 Hr 97.4 F-98.2 F 86-91 20-21 124-140/56-80 90-96 General appearance: normal weight - Respiratory Respiratory exam: Present: decreased breath sounds (At the bases bilaterally.). Absent: rales, rhonchi, wheezes - Cardiovascular Cardiovascular exam: Present: regular rate and rhythm - GI/Abdominal GI/Abdominal exam: Present: normal bowel sounds. Absent: ascites, tenderness - Extremities Exam Extremities exam: Present: other (Bilateral lower extremity amputations dressings in place) - Neurological Exam Neurological exam: Present: alert, oriented X3 Results - Labs CBC & BMP: 04/26/17 17:41 04/26/17 17:41 Quality Measures - VTE Contraindication to Mechanical VTE Prophylaxis: Bilateral Above the Knee Amputations
--- NOTE | 2017-04-27 08:18 | Nephrology Consult Note ---
History of Present Illness Chief complaint: ESRD History of present illness: Ms. Fonseca is a 51 year old female with end-stage renal disease and history of systolic and diastolic heart failure. She presents with shortness of breath and bilateral pleural effusions. She is status post bilateral leg amputations. She has orthopnea and PND She dialyzes Monday in [place]. On my exam she is orthopneic and is fairly comfortable low with her head up at 60 in the bed. Chest exam reveals dullness over both bases with decreased breath sounds and no significant peripheral edema. Her BNP is elevated. Her chest x-ray exhibits bilateral pleural effusions which occupy the lower half of both hemithoraces. Impression bilateral pleural effusions with shortness of breath #2 history of heart failure #3 end-stage renal disease #4 peripheral vascular disease status post bilateral leg amputations. Plan hemodialysis today with volume removal as tolerated. We will continue to try to decrease her dry weight to prevent recurrence of pleural effusions. Understand she is scheduled for thoracentesis not certainly think that is the quickest way to resolve these and help her shortness of breath. Home Medications Medication Instructions Recorded Confirmed Type Atorvastatin [Lipitor] 40 mg PO BEDTIME 12/20/16 04/26/17 History Sodium Bicarb Tab 1,300 mg PO TID 12/20/16 04/26/17 History Cilostazol [Pletal] 50 mg PO BID tablet 01/06/17 04/26/17 Rx Famotidine Tab [Pepcid Tab] 20 mg PO BID tablet 01/06/17 04/26/17 Rx amLODIPine [Norvasc] 2.5 mg PO BID tablet 01/06/17 04/26/17 Rx hydrALAZINE TAB [Apresoline Tab] 25 mg PO TID tablet 01/06/17 04/26/17 Rx Aspirin EC Tab 81 mg PO DAILY tablet 01/11/17 04/26/17 Rx Bisacodyl Tab [Dulcolax Tab] 10 mg PO DAILY PRN #0 tablet 03/01/17 04/26/17 Rx Clopidogrel [Plavix] 75 mg PO DAILY tablet 03/01/17 04/26/17 Rx Glucagon 1 mg IM PRN PRN #0 vial 03/01/17 04/26/17 Rx HYDROcodone/ACETAMIN 7.5-325 1 tablet PO Q4H PRN #0 tablet 03/01/17 04/26/17 Rx [[place] 7.5-325] Heparin Inj 2,000 unit IV .EA DIALYSIS PORT 03/01/17 04/26/17 Rx PRN #0 vial Insulin Lispro [HumaLOG] See Protocol SUBCUT BID W/MEALS 03/01/17 04/26/17 Rx unit Metoprolol Tartrate Tab [Lopressor 25 mg PO BID tablet 03/01/17 04/26/17 Rx Tab] Albuterol/Ipratropium Neb [Duoneb] 3 ml INH Q6HR PRN 04/26/17 04/26/17 History Ascorbic Acid [Vitamin C Chew Tab] 1,000 mg PO BID 04/26/17 04/26/17 History B-Complex with Vitamin C [Vitamin 1 tablet PO DAILY 04/26/17 04/26/17 History B-Complex with Vit C] Carvedilol [Coreg] 12.5 mg PO BID 04/26/17 04/26/17 History Furosemide Tab [Lasix Tab] 80 mg PO DAILY 04/26/17 04/26/17 History Insulin NPH [HumuLIN N] 10 units SUBCUT AC 04/26/17 04/26/17 History Isosorbide Mononitrate [Isosorbide 60 mg PO DAILY 04/26/17 04/26/17 History Mononitrate ER] Magnesium Hydroxide [Milk of 2 tablespoon PO DAILY PRN 04/26/17 04/26/17 History Magnesia] Sulfameth/Trimeth 800-160 Tab 1 tablet PO BID 04/26/17 04/26/17 History [Bactrim DS Tab] predniSONE TAB [PredniSONE] 10 mg PO DAILY 04/26/17 04/26/17 History Allergies Allergy/AdvReac Type Severity Reaction Status Date / Time No Known Allergies Allergy Unverified 11/11/16 13:00 Medical,Surgical,& Family Hx - Medical History Cardio: History of: CHF, Hypertension Psychological: No history of: Anxiety Disorders, ADHD, Behavior Problems, Bipolar Disorder, Depression, Previous Suicide Attempt, Psychiatric/Substance Abuse Tx, Schizophrenia, Violent Behavior, Psychiatric Problems Neurology: History of: Cerebral Hemorrhage (SDH (Jun 2015)), Cerebrovascular Accident (June 2015), Peripheral Neuropathy (SDH (06/16/15)), TIA No history of: Brain Aneurysm, Cerebral Palsy, Dementia, Migraine, Multiple Sclerosis, Parkinson's Disease, Seizures, Vertigo, Neurologocal Cancer HEENT: History of: Eye Problem (glaucoma), Glaucoma Endocrine: History of: Diabetes Mellitus (IDDM), Dyslipidemia Rheumatology: No history of;: Fibromyalgia, Gout, Rheumatological Problems Respiratory: No history of: Asthma, Bronchitis, COPD, Intubation, Obstructive Sleep Apnea , Pulmonary Embolism, Pulmonary Hypertension, Pneumonia, Lung Cancer, Respiratory Problems Renal: History of: Renal Failure, Renal Problems No history of: Renal (Kidney) Cancer, Dialysis Genitourinary: History of: Recurring Urinary Tract Infections Gastrointestinal: History of: GERD Musculoskeletal: History of: Amputation (right BKA) No history of: Back/Neck Problems, Degenerative Disk Disease, Herniated Disk , Osteoporosis, Musculoskeletal Cancer, Musculoskeletal Problems Hematology: History of: Anemia No history of: Blood Transfusion Reaction - Surgical History Cardiac Surgeries: Patient Denies: Cardiac Catheterization Thoracic Surgeries: Patient denies;: Organ Transplant, Lobectomy Neurologic Surgeries: Surgical HX of: Cerebral Hemorrhage (SDH (Jun 2015)), Neurologic Surgery Patient denies: Brain Aneurysm HEENT Surgeries: Surgical HX of: Tonsilectomy & Adenoidectomy Abdominal Surgeries: Surgical HX of: Appendectomy (in the remote past), Cholecystectomy Patient denies: Colonoscopy, EGD Reproductive Surgeries: Patient denies;: Breast Surgery, Genitourinary Surgery, Gynecologic Surgery - Family History Family History: Reports;: Family Cancer (mother), Family Diabetes (Parents and siblings.), Family Hypertension (PARENTS) - Social History Smoking Status: Former smoker Frequency of Alcohol Use: None Type of Drug Use: None Review of Systems 12 point system: reviewed and no additional remarkable complaints except as stated Exam - Vital Signs Vital signs: Period Temp Pulse Resp BP Sys/Palma Pulse Ox Last 24 Hr 97.4 F-98.2 F 86-96 18-21 124-164/56-92 89-96 - General Appearance General appearance: frail EENT: ATNC Neck: no JVD, no thyromegaly, no carotid bruit, supple Respiratory: no kyphosis, no scoliosis Cardiology: no murmurs, no rub, no gallops, no edema, regular rate, regular rhythm, normal S1, normal S2 Gastrointestinal: normoactive bowel sounds Integumentary: no rash, warm and dry Musculoskeletal: no deformities, no erythema, no cyanosis, no clubbing Psychiatric: mood/affect appropriate (bilateral leg amps, decreased breath sounds both bases), cooperative Results - Labs CBC & BMP: 04/26/17 17:41 04/26/17 17:41 Assessment and Plan (1) ESRD (end stage renal disease) on dialysis Problem details: No acute indication for HD at this time. Status: Chronic Current Visit: No (2) Diabetes mellitus Status: Chronic Current Visit: No Qualifiers: Diabetes mellitus type: type 2 Diabetes mellitus complication status: with kidney complications Chronic kidney disease stage: on chronic dialysis (3) Anemia Status: Chronic Current Visit: No Qualifiers: Other causes of anemia: chronic disease, kidney (4) Amputation leg, bilat Status: Acute Current Visit: Yes Specialty Discharge - Follow Up or Referrals - Speciality Discharge Instructions Nephrology Instructions: Hemodialysis Monday trying to decrease her weight to lowest tolerated weight to minimize the chance of recurrence of pleural effusions.
[2017-04-27] MEDS: INSULIN LISPRO 100 UNIT/ML SUBCUT SCH (08:58)
[2017-04-27] MEDS: INSULIN REGULAR 100 UNIT/ML SUBCUT SCH ×4 (08:59→21:37)
[2017-04-27] MEDS: CLOPIDOGREL 75 MG TABLET PO SCH (09:00)
[2017-04-27] MEDS: SODIUM BICARBONATE 650 MG TABLET PO SCH (09:00)
[2017-04-27] MEDS ORDERED: FAMOTIDINE 20 MG TABLET PO SCH (09:00)
[2017-04-27] MEDS: CILOSTAZOL 50 MG TABLET PO SCH (09:00)
[2017-04-27] MEDS: METOPROLOL TARTRATE 25 MG TABLET PO SCH ×2 (09:01→21:39)
[2017-04-27] MEDS: ASPIRIN EC 81 MG TABLET PO SCH (09:01)
[2017-04-27] MEDS: PANTOPRAZOLE 40 MG TABLET PO SCH (09:01)
[2017-04-27] MEDS ORDERED: ALBUTEROL/IPRATROPIUM 3 ML NEB RESP TX PRN (09:52)
[2017-04-27] MEDS: ISOSORBIDE MONONITRATE 60 MG TABLET PO SCH (10:09)
[2017-04-27] MEDS: DESITIN 4OZ/NYSTATIN 15 GRAM MIXTURE PASTE TOP SCH ×2 (10:09→21:38)
--- NOTE | 2017-04-27 10:51 | Pulmonology Consult Note ---
History of Present Illness Chief complaint: Bilateral pleural effusion. Chronic renal failure. History of present illness: Ms. Fonseca is a 51 year old [place] female whom I been asked see in pulmonary consultation concerning bilateral pleural effusions. This patient is admitted with shortness of breath. She has end-stage renal disease and is on hemodialysis on Tuesdays and Saturdays. She has a history of heart disease and has had a past history of chronic systolic and diastolic congestive heart failure. She has a number of other medical problems. See past history. She complains of shortness of breath orthopnea PND. She denies any cardiac angina. She denies a cough. There has been no sputum production and she has had no hemoptysis. The remainder of the review of systems is negative. Allergies. None Past history of heart disease with a past history of systolic and diastolic congestive heart failure. End-stage renal failure on dialysis. Diabetes mellitus. (Insulin-dependent). Peripheral artery disease. Hyperlipidemia Social history. Past history of smoking. Family history. Her mother had cancer. Her parents and her siblings have diabetes mellitus. Both parents had high blood pressure. Cardiac catheterization. 02/16/2017. Drug-eluting stent was placed in the ostial LAD across the origin of circumflex. Doppler venograms 03/01/2017. No evidence of deep venous thrombophlebitis of the lower extremity. Recent BKA. Chest x-ray. 04/26/2017. Cardiomegaly. Large bilateral pleural effusions. Central vascular congestion bilaterally. White count is 12,400 with 70 segs 17 lymphs and 8 monocytes. H&H to 8.2 27.0. Potassium is low at 3.4. Creatinine is 3.0 with a BUN of 20. Natruretic peptide is 1179. Thyroid function tests are normal. Labs been reviewed. Medicines have been reviewed. Physical exam. Vital signs. See below Psychiatric. Oriented 3. Able to give a history. Neurologic. Cranial nerves are intact. Long track motor functions intact Face. Symmetrical. No swelling of the lips or tongue. Neck. Symmetrical with no meningismus. Lymphatics. No submandibular cervical supraclavicular or epitrochlear adenopathy Chest. Bilateral rales. Heart. Lateral gallop Abdomen. Rare bowel sounds. The remainder the exam was noncontributory. Impression. 1. Large bilateral pleural effusion secondary to pulmonary edema. 2. Arteriosclerotic heart disease with a history of stenting and a history of systolic and diastolic congestive heart failure 3. Chronic renal failure. Dialysis per 4. Peripheral arterial disease. 5. Diabetes mellitus 6. Anemia. 7. See past history 8. See admit note 9. See Dr. Julien Whitlock's renal consultation. Plan. 1. Dialysis. 2. Follow-up chest x-ray. Doubt we will need a thoracentesis. Home Medications Medication Instructions Recorded Confirmed Type Atorvastatin [Lipitor] 40 mg PO BEDTIME 12/20/16 04/26/17 History Sodium Bicarb Tab 1,300 mg PO TID 12/20/16 04/26/17 History Cilostazol [Pletal] 50 mg PO BID tablet 01/06/17 04/26/17 Rx Famotidine Tab [Pepcid Tab] 20 mg PO BID tablet 01/06/17 04/26/17 Rx amLODIPine [Norvasc] 2.5 mg PO BID tablet 01/06/17 04/26/17 Rx hydrALAZINE TAB [Apresoline Tab] 25 mg PO TID tablet 01/06/17 04/26/17 Rx Aspirin EC Tab 81 mg PO DAILY tablet 01/11/17 04/26/17 Rx Bisacodyl Tab [Dulcolax Tab] 10 mg PO DAILY PRN #0 tablet 03/01/17 04/26/17 Rx Clopidogrel [Plavix] 75 mg PO DAILY tablet 03/01/17 04/26/17 Rx Glucagon 1 mg IM PRN PRN #0 vial 03/01/17 04/26/17 Rx HYDROcodone/ACETAMIN 7.5-325 1 tablet PO Q4H PRN #0 tablet 03/01/17 04/26/17 Rx [[place] 7.5-325] Heparin Inj 2,000 unit IV .EA DIALYSIS PORT 03/01/17 04/26/17 Rx PRN #0 vial Insulin Lispro [HumaLOG] See Protocol SUBCUT BID W/MEALS 03/01/17 04/26/17 Rx unit Metoprolol Tartrate Tab [Lopressor 25 mg PO BID tablet 03/01/17 04/26/17 Rx Tab] Albuterol/Ipratropium Neb [Duoneb] 3 ml INH Q6HR PRN 04/26/17 04/26/17 History Ascorbic Acid [Vitamin C Chew Tab] 1,000 mg PO BID 04/26/17 04/26/17 History B-Complex with Vitamin C [Vitamin 1 tablet PO DAILY 04/26/17 04/26/17 History B-Complex with Vit C] Carvedilol [Coreg] 12.5 mg PO BID 04/26/17 04/26/17 History Furosemide Tab [Lasix Tab] 80 mg PO DAILY 04/26/17 04/26/17 History Insulin NPH [HumuLIN N] 10 units SUBCUT AC 04/26/17 04/26/17 History Isosorbide Mononitrate [Isosorbide 60 mg PO DAILY 04/26/17 04/26/17 History Mononitrate ER] Magnesium Hydroxide [Milk of 2 tablespoon PO DAILY PRN 04/26/17 04/26/17 History Magnesia] Sulfameth/Trimeth 800-160 Tab 1 tablet PO BID 04/26/17 04/26/17 History [Bactrim DS Tab] predniSONE TAB [PredniSONE] 10 mg PO DAILY 04/26/17 04/26/17 History Allergies Allergy/AdvReac Type Severity Reaction Status Date / Time No Known Allergies Allergy Unverified 11/11/16 13:00 Exam (Pulmonay) H&P - Constitutional Vitals: Period Temp Pulse Resp BP Sys/Palma Pulse Ox Last 24 Hr 97.4 F-98.2 F 86-96 18-21 124-164/56-92 89-96 Medical,Surgical,& Family Hx - Medical History Cardio: History of: CHF, Hypertension Psychological: No history of: Anxiety Disorders, ADHD, Behavior Problems, Bipolar Disorder, Depression, Previous Suicide Attempt, Psychiatric/Substance Abuse Tx, Schizophrenia, Violent Behavior, Psychiatric Problems Neurology: History of: Cerebral Hemorrhage (SDH (Jun 2015)), Cerebrovascular Accident (June 2015), Peripheral Neuropathy (SDH (06/16/15)), TIA No history of: Brain Aneurysm, Cerebral Palsy, Dementia, Migraine, Multiple Sclerosis, Parkinson's Disease, Seizures, Vertigo, Neurologocal Cancer HEENT: History of: Eye Problem (glaucoma), Glaucoma Endocrine: History of: Diabetes Mellitus (IDDM), Dyslipidemia Rheumatology: No history of;: Fibromyalgia, Gout, Rheumatological Problems Respiratory: No history of: Asthma, Bronchitis, COPD, Intubation, Obstructive Sleep Apnea , Pulmonary Embolism, Pulmonary Hypertension, Pneumonia, Lung Cancer, Respiratory Problems Renal: History of: Renal Failure, Renal Problems No history of: Renal (Kidney) Cancer, Dialysis Genitourinary: History of: Recurring Urinary Tract Infections Gastrointestinal: History of: GERD Musculoskeletal: History of: Amputation (right BKA) No history of: Back/Neck Problems, Degenerative Disk Disease, Herniated Disk , Osteoporosis, Musculoskeletal Cancer, Musculoskeletal Problems Hematology: History of: Anemia No history of: Blood Transfusion Reaction - Surgical History Cardiac Surgeries: Patient Denies: Cardiac Catheterization Thoracic Surgeries: Patient denies;: Organ Transplant, Lobectomy Neurologic Surgeries: Surgical HX of: Cerebral Hemorrhage (SDH (Jun 2015)), Neurologic Surgery Patient denies: Brain Aneurysm HEENT Surgeries: Surgical HX of: Tonsilectomy & Adenoidectomy Abdominal Surgeries: Surgical HX of: Appendectomy (in the remote past), Cholecystectomy Patient denies: Colonoscopy, EGD Reproductive Surgeries: Patient denies;: Breast Surgery, Genitourinary Surgery, Gynecologic Surgery - Family History Family History: Reports;: Family Cancer (mother), Family Diabetes (Parents and siblings.), Family Hypertension (PARENTS) - Social History Smoking Status: Former smoker Frequency of Alcohol Use: None Type of Drug Use: None Results - Labs CBC & BMP: 04/26/17 17:41 04/26/17 17:41 Quality Measures - VTE Contraindication to Mechanical VTE Prophylaxis: Bilateral Above the Knee Amputations
--- NOTE | 2017-04-27 12:10 | Dialysis Note ---
Dialysis Note - Dialysis Note Ms. Fonseca is seen during her hemodialysis. She is tolerating dialysis well. We are removing 4-1/2 kg of fluid today as tolerated.
[2017-04-27] MEDS ORDERED: hydrALAZINE 25 MG TABLET PO SCH (15:00)
[2017-04-27] MEDS: ASCORBIC ACID 500 MG TABLET PO SCH (21:38)
[2017-04-27] MEDS: ATORVASTATIN 40 MG TABLET PO SCH (21:38)
[2017-04-28] MEDS: CLOPIDOGREL 75 MG TABLET PO SCH (08:47)
[2017-04-28] MEDS: ISOSORBIDE MONONITRATE 60 MG TABLET PO SCH (08:47)
[2017-04-28] MEDS: ASCORBIC ACID 500 MG TABLET PO SCH ×2 (08:47→20:24)
[2017-04-28] MEDS: MULTIVITAMIN (BEROCCA) TABLET PO SCH (08:47)
[2017-04-28] MEDS: DESITIN 4OZ/NYSTATIN 15 GRAM MIXTURE PASTE TOP SCH ×2 (08:48→20:24)
[2017-04-28] MEDS: ASPIRIN EC 81 MG TABLET PO SCH (08:48)
[2017-04-28] MEDS: METOPROLOL TARTRATE 25 MG TABLET PO SCH ×2 (08:48→20:24)
[2017-04-28] MEDS: PANTOPRAZOLE 40 MG TABLET PO SCH (08:48)
[2017-04-28] MEDS: INSULIN REGULAR 100 UNIT/ML SUBCUT SCH ×4 (08:53→21:40)
--- NOTE | 2017-04-28 09:00 | Nephrology Progress Note ---
Nephrology - PN: Subj Interval history: Ms. Fonseca is seen in follow-up of her end-stage renal disease and fluid overload with bilateral pleural effusions. She tolerated dialysis yesterday with removal of about 4 kg of volume. Today she is has several glasses of water and juice on her breakfast tray and a full pitcher of water at her bedside. We discussed again the fact that she needs to fluid restrict since she could not excrete all of this fluid and it will only accumulate make her more short of breath. She does have trace sacral edema and decreased breath sounds over both bases. She is not particularly short of breath this morning but did sleep with her head elevated last night so she will still need more volume removed. We will plan to ultrafilter her today for 3 kg of volume and will do her regular dialysis again tomorrow with further volume removal. Exam (PN)-Nephrology - Vital Signs Vital signs: Period Temp Pulse Resp BP Sys/Palma Pulse Ox Last 24 Hr 97.1 F-97.8 F 83-95 16-22 112-160/63-98 93-98 - Lab 04/26/17 17:41 04/26/17 17:41 Most recent lab results Calcium 8.6 MG/DL (8.5-10.1) 04/26/17 17:41 Magnesium 2.1 MG/DL (1.8-2.4) 04/26/17 17:41 Assessment and Plan (1) ESRD (end stage renal disease) on dialysis Problem details: No acute indication for HD at this time. Status: Chronic Current Visit: No (2) Diabetes mellitus Status: Chronic Current Visit: No Qualifiers: Diabetes mellitus type: type 2 Diabetes mellitus complication status: with kidney complications Chronic kidney disease stage: on chronic dialysis (3) Anemia Status: Chronic Current Visit: No Qualifiers: Other causes of anemia: chronic disease, kidney (4) Amputation leg, bilat Status: Acute Current Visit: Yes
--- NOTE | 2017-04-28 09:24 | XRay Report ---
XR chest 1V portable Indication: CHF Comparison: Chest x-ray dated April 26, 2017 Technique: Single frontal view of the chest. Findings: Heart remains obscured. Right-sided central venous catheter appears unchanged in positioning. Stable to mildly increased bilateral moderate to large bilateral pleural fluid. Increased hazy opacification throughout the lungs suggesting worsened pulmonary edema. Visualized osseous and surrounding soft tissue structures appear grossly unchanged. IMPRESSION: As above. PROCEDURE INTERPRETED AT [facility] DEPARTMENT OF RADIOLOGY Final Report Signed by: Dr Candido Christie
--- NOTE | 2017-04-28 10:29 | Dialysis Note ---
Dialysis Note - Dialysis Note Ms. Fonseca is seen during her ultrafiltration in the dialysis unit. We are removing 3 kg of fluid as tolerated and she is tolerating it well thus far. Chest x-ray demonstrates continued bilateral pleural fluid. This will not be removed quickly with dialysis. Her shortness of breath is somewhat better. She is known to have an ejection fraction of approximately 30% and does seem to collect most of her fluid in the pleural spaces.
--- NOTE | 2017-04-28 10:54 | Pulmonology Progress Note ---
Pulmonary - PN: Subj Interval history: This is a 51-year-old female whom I saw in pulmonary consultation 04/27/2017. My impressions were. 1. Large bilateral pleural effusion secondary to pulmonary edema. 2. Arteriosclerotic heart disease with a history of stenting and a history of systolic and diastolic congestive heart failure 3. Chronic renal failure. Dialysis per 4. Peripheral arterial disease. 5. Diabetes mellitus 6. Anemia. 7. See past history 8. See admit note 9. See Dr. Julien Whitlock's renal consultation. 04/28/2017. Patient had dialysis yesterday and she is to have dialysis again today understand. Her chest x-ray looks a lot better. She still has bilateral pleural effusions and these almost certainly related to congestive heart failure secondary to fluid overload. Patient says that she feels better and she is breathing better she is sitting up in bed and is not in any distress. There are no positive cultures. Labs been reviewed. Medicines have been reviewed. Physical exam. Vital signs. See below Psychiatric. Oriented 3 Face. Symmetrical. Lips and tongue are normal. Neck. Symmetrical. No meningismus. Lymphatics. No submandibular cervical supraclavicular or epitrochlear adenopathy. Chest. Breath sounds are clear. Inspiratory excursion is decreased secondary to pleural effusions. Heart. Slightly lateral PMI. Faint gallop. Abdomen. Nondistended. Positive bowel sounds. The remainder of the physical exam is negative Plan. 04/27/2017 1. Dialysis. 2. Follow-up chest x-ray. Doubt we will need a thoracentesis. 04/28/2017. 1. This patient is better with dialysis and I think she will continue to improve. Pleural effusions are related to congestive heart failure. Patient does not need a thoracentesis. 2. I will sign off. Reconsult as needed Exam (Progress Note) - Constitutional Vitals: Period Temp Pulse Resp BP Sys/Palma Pulse Ox Last 24 Hr 97.1 F-97.8 F 83-95 16-22 112-160/63-98 93-98 Results - Labs CBC & BMP: 04/26/17 17:41 04/26/17 17:41
--- NOTE | 2017-04-28 15:18 | Hospitalist Progress Note ---
Assessment and Plan (1) Diabetes mellitus Status: Chronic Current Visit: No Qualifiers: Diabetes mellitus type: type 2 Diabetes mellitus complication status: with kidney complications Chronic kidney disease stage: on chronic dialysis (2) Hypertension Status: Chronic Current Visit: No Qualifiers: Hypertension type: essential hypertension Qualified Code(s): I10 - Essential (primary) hypertension (3) ESRD (end stage renal disease) on dialysis Problem details: No acute indication for HD at this time. Status: Chronic Current Visit: No (4) Amputation leg, bilat Status: Acute Current Visit: Yes Hospitalist: Subjective Interval history: No acute events overnight. Reports that she feels better. CXR better today. HD again today. Hope for discharge soon. Exam - Constitutional Vitals: Period Temp Pulse Resp BP Sys/Palma Pulse Ox Last 24 Hr 97.1 F-97.8 F 69-95 20-22 112-153/63-98 93-98 General appearance: normal weight - Head Head exam: Present: normocephalic, atraumatic - Eye Eye exam: Present: EOMI Pupils: Present: KRISTOPHER - ENT ENT exam: Present: normal exam - Neck Neck exam: Present: normal inspection - Respiratory Respiratory exam: Present: clear to auscultation bilaterally. Absent: wheezes - Cardiovascular Cardiovascular exam: Present: regular rate and rhythm - GI/Abdominal GI/Abdominal exam: Present: normal bowel sounds, soft. Absent: tenderness, rebound - Back Exam Back exam: Present: normal inspection - Neurological Exam Neurological exam: Present: alert, oriented X3 - Psychiatric Psychiatric exam: Present: normal affect, normal mood - Skin Skin exam: Present: warm, intact Results - Labs CBC & BMP: 04/26/17 17:41 04/26/17 17:41 Quality Measures - VTE Contraindication to Mechanical VTE Prophylaxis: Bilateral Above the Knee Amputations
[2017-04-28] MEDS: ATORVASTATIN 40 MG TABLET PO SCH (20:24)
[2017-04-29 06:13] LABS: Basophils % 0.3 % (0.0-0.8); Eosinophils # 0.6 10*3/uL (0.0-0.87); Eosinophils % 5.3 % (0.00-10.9); Hematocrit 26.5 VOL% (35.7-47.0); Hemoglobin 8.1 GM/DL (12.0-16.0); Immature Granulocytes % 0.5 %; Immature Granulocytes Absolute 0.05 #; Lymphocytes # 2.4 10*3/uL (1.4-4.0); Lymphocytes % 22.7 % (21.3-54.2); Mean Corpuscular HGB Conc 30.6 GM/DL (32-36); Mean Corpuscular Hemoglobin 27 PG (27-34); Mean Corpuscular Volume 86.6 FL (87-102); Mean Platelet Volume 8.5 FL (9.6-12.0); Monocytes # 0.8 10*3/uL (0.11-0.8); Monocytes % 7.2 % (1.7-12.7); Neutrophils # 6.6 10*3/uL (1.4-7.4); Platelet Count 480 T/CUMM (130-400); Red Blood Count 3.06 MC/CUMM (3.8-5.5); Red Cell Distribution Width 14.9 % (9.3-17.3); White Blood Count 10.4 T/CUMM (4-12)
[2017-04-29] MEDS: ISOSORBIDE MONONITRATE 60 MG TABLET PO SCH ×2 (07:40→12:07)
[2017-04-29] MEDS: ASCORBIC ACID 500 MG TABLET PO SCH ×3 (07:40→12:09)
[2017-04-29] MEDS: METOPROLOL TARTRATE 25 MG TABLET PO SCH ×2 (07:41→12:08)
[2017-04-29] MEDS: CLOPIDOGREL 75 MG TABLET PO SCH ×2 (07:41→12:08)
[2017-04-29] MEDS: ASPIRIN EC 81 MG TABLET PO SCH ×2 (07:41→12:06)
[2017-04-29] MEDS: INSULIN REGULAR 100 UNIT/ML SUBCUT SCH ×3 (07:42→18:01)
[2017-04-29] MEDS: PANTOPRAZOLE 40 MG TABLET PO SCH ×2 (07:42→12:08)
--- NOTE | 2017-04-29 10:06 | Nephrology Progress Note ---
Nephrology - PN: Subj Interval history: Patient is seen on hemodialysis. She reports feeling better she denies shortness of breath Physical exam general patient is in no acute distress, she has trace to 1+ pretibial edema, patient's weight is down about 5 kg's from her admission weight Assessment/plan: 1. End-stage renal disease-patient was dialyzed today for volume removal she is also usually a Monday patient 2. Volume overload seems to be improving 3. Bilateral pleural effusions 4. Anemia-patient's hematocrits around 26% Exam (PN)-Nephrology - Vital Signs Vital signs: Period Temp Pulse Resp BP Sys/Palma Pulse Ox Last 24 Hr 97.1 F-98 F 69-85 16-20 103-135/52-68 30-94 - Lab 04/29/17 05:59 04/26/17 17:41 Most recent lab results Calcium 8.6 MG/DL (8.5-10.1) 04/26/17 17:41 Magnesium 2.1 MG/DL (1.8-2.4) 04/26/17 17:41
[2017-04-29] MEDS: MULTIVITAMIN (BEROCCA) TABLET PO SCH (12:07)
[2017-04-29] MEDS: DESITIN 4OZ/NYSTATIN 15 GRAM MIXTURE PASTE TOP SCH (12:08)
--- NOTE | 2017-04-29 15:53 | Discharge Summary ---
Hospital Course - Hospital Course Hospital Course: 51 y/o with ESRD (TTS), CHF and DM presented with shortness of breath. She was admitted to the hospitalist service for bilateral recurrent pleural effusions. Pulmonary and nephrology were consulted. She underwent HD 3 04/27, 04/28 and 04/29. CXR greatly improved. Her shortness of breath resolved. She is now very eager to go home. She has reached maximal benefit of inpatient stay and will be discharged home. Her next dialysis session is scheduled for Monday. - Time spent with patient Time with patient DS: Greater than 30 minutes (40) Diagnosis - Discharge Diagnosis (1) Diabetes mellitus Status: Chronic (2) Hypertension Status: Chronic (3) ESRD (end stage renal disease) on dialysis Status: Chronic (4) Amputation leg, bilat Status: Chronic Discharge Plan - Discharge Data Disposition: Disch To Home/Self Care Condition at Discharge: Stable Discharge Diet: diabetic diet, heart healthy, low salt diet Activity: increase activity as tolerated Hygiene: no restrictions Weight Bearing at Discharge: weight bear as tolerated Driving: no restrictions Contact your physician if you experience:: fever over 101, Shortness of breath - Discharge Medications Continue Sodium Bicarb Tab 1,300 mg PO TID Atorvastatin [Lipitor] 40 mg PO BEDTIME Famotidine Tab [Pepcid Tab] 20 mg PO BID tablet Aspirin EC Tab 81 mg PO DAILY tablet Clopidogrel [Plavix] 75 mg PO DAILY tablet HYDROcodone/ACETAMIN 7.5-325 [[place] 7.5-325] 1 tablet PO Q4H PRN #0 tablet PRN Reason: Pain Moderate (4-7) Insulin Lispro [HumaLOG] See Protocol SUBCUT BID W/MEALS unit B-Complex with Vitamin C [Vitamin B-Complex with Vit C] 1 tablet PO DAILY Albuterol/Ipratropium Neb [Duoneb] 3 ml INH Q6HR PRN PRN Reason: shortness of breath Insulin NPH [HumuLIN N] 10 units SUBCUT AC Furosemide Tab [Lasix Tab] 80 mg PO DAILY Magnesium Hydroxide [Milk of Magnesia] 2 tablespoon PO DAILY PRN PRN Reason: Constipation Cilostazol [Pletal] 50 mg PO BID tablet hydrALAZINE TAB [Apresoline Tab] 25 mg PO TID tablet Bisacodyl Tab [Dulcolax Tab] 10 mg PO DAILY PRN #0 tablet PRN Reason: Constipation Metoprolol Tartrate Tab [Lopressor Tab] 25 mg PO BID tablet Isosorbide Mononitrate [Isosorbide Mononitrate ER] 60 mg PO DAILY Ascorbic Acid [Vitamin C Chew Tab] 1,000 mg PO BID Discontinued Heparin Inj 2,000 unit IV .[facility] PRN #0 vial PRN Reason: DIALYSIS Sulfameth/Trimeth 800-160 Tab [Bactrim DS Tab] 1 tablet PO BID predniSONE TAB [PredniSONE] 10 mg PO DAILY Carvedilol [Coreg] 12.5 mg PO BID amLODIPine [Norvasc] 2.5 mg PO BID tablet Glucagon 1 mg IM PRN PRN #0 vial PRN Reason: Hypoglycemia w/o IV access - Follow Up or Referral - Forms/Instructions Exam - Constitutional Vitals: Period Temp Pulse Resp BP Sys/[place] Pulse Ox Last 24 Hr 97.1 F-98 F 78-85 16-20 103-135/52-68 30-96 General appearance: normal weight - Head Head exam: Present: normocephalic, atraumatic - Eye Eye exam: Present: EOMI Pupils: Present: KRISTOPHER - ENT ENT exam: Present: normal exam - Neck Neck exam: Present: normal inspection - Respiratory Respiratory exam: Present: clear to auscultation bilaterally - Cardiovascular Cardiovascular exam: Present: regular rate and rhythm - GI/Abdominal GI/Abdominal exam: Present: normal bowel sounds, soft - Extremities Exam Extremities exam: Present: other (bilateral bka) - Back Exam Back exam: Present: normal inspection - Neurological Exam Neurological exam: Present: alert, oriented X3 - Psychiatric Psychiatric exam: Present: normal affect, normal mood - Skin Skin exam: Present: warm, intact Discharge Results Labs on day of discharge: Labs from last 24 hours 04/29/17 04/29/17 04/29/17 11:58 07:22 05:59 WBC 10.4 RBC 3.06 L Hgb 8.1 L Hct 26.5 L MCV 86.6 L MCH 27 MCHC 30.6 L RDW 14.9 Plt Count 480 H MPV 8.5 L Neut % (Auto) 64.0 Lymph % (Auto) 22.7 [place] % (Auto) 7.2 Eos % (Auto) 5.3 Baso % (Auto) 0.3 Neut # (Auto) 6.6 Lymph # (Auto) 2.4 [place] # (Auto) 0.8 Eos # (Auto) 0.6 Baso # (Auto) 0.0 Immature Gran % 0.5 Nucleated RBC % 0.0 Immature Gran # 0.05 Nucleated RBCs # 0.00 POC Glucose 136 H 122 H 04/28/17 04/28/17 20:33 15:27 WBC RBC Hgb Hct MCV MCH MCHC RDW Plt Count MPV Neut % (Auto) Lymph % (Auto) [place] % (Auto) Eos % (Auto) Baso % (Auto) Neut # (Auto) Lymph # (Auto) [place] # (Auto) Eos # (Auto) Baso # (Auto) Immature Gran % Nucleated RBC % Immature Gran # Nucleated RBCs # POC Glucose 191 H 116 H DS: Provider Date of admission: 04/26/17 16:52 Primary care physician: Kahlil Roman MD Attending physician on admission: Edinson Paniagua MD Consults: 04/26/17 16:53 Consult to Physician [CONS] Routine Comment: SOB, pleural effusion Consulting Provider: Blaze Mack 04/26/17 16:58 Consult to Wound Care - [place] [CONS] Routine Reason for Wound Care: Wound Care Management Consult Comment: Bilateral BKA 04/26/17 18:25 Consult to Physician [CONS] Routine Comment: ESRD on Dialysis [facility] Consulting Provider: Julien Whitlock Consult to Specialist Group: Nephrology Person Notified: doug Date Notified: 04/27/17 Time Notified: 07:45 Discharging clinician: Med Jones MD
[2017-04-29 17:58] VITALS: BP 129/67
== END 2017-04-29 17:30 | disposition home or self-care (01) | DRG 291 ==
LOC: N.2E 16:06 → SUATTDRO 16:52
PROVIDERS: ADMIT Internal Medicine Cardiovascular Disease; ATTEND Internal Medicine